=== PATIENT | male | born 1940 | race Caucasian/White ===

== ENCOUNTER 2023-05-31 23:34 | Inpatient (IN) ==
--- NOTE | 2023-05-31 23:43 | Emergency Department Note ---
Impression & Plan Acute cholecystitis, Abdominal pain ED Provider Note NAME: CHE CHEUNG AGE: 82 SEX: M : 1940 ARRIVES VIA: Walk-In INFORMANT: Patient, ED PROVIDER(S): Mann Siegel MD CHIEF COMPLAINT: MEDICAL DECISION MAKING: Patient presents due to concern for epigastric burning. IV was established blood was obtained the patient did have a screening EKG troponin ordered along with a KUB. Patient was ordered Pepcid and Carafate. Patient's KUB did show concern for possible gaseous distention of the bowel which seem to be enlarged and so CT abdomen pelvis was ordered. Repeat troponin ordered. The patient's blood work shows a normal white count hemoglobin and platelet count with normal kidney function electrolytes. Repeat troponin negative. Patient CT shows possible ileus. After further discussion did suggest the patient stay inpatient. I did review a KUB report from radiology which noted that the CT that was read by the overnight stat radiology group may have not noted that the patient may have acute cholecystitis. Right upper quadrant ultrasound was ordered and the patient was admitted by Dr. Carmona. Patient's right upper quadrant ultrasound was pending at the time of admission Discussion w/ other healthcare providers: Dr. Carmona inpatient medicine service Prior /Outside records reviewed: I reviewed a primary care visit from Dr. Salazar. The patient was seen for well adult exam at that time. The patient was ordered a flu vaccination and was noted to have an elevated total bilirubin that was elevated. I did review an MRI brain with and without contrast completed on May 18. This was negative and no acute intracranial abnormality or specific suspicious lesion noted. Also had a negative MRA of the head and neck. This was from May 14. Total bilirubin from April 16 was 1.4. Differential diagnosis: Gastritis, GERD, pancreatitis, atypical chest pain, constipation, bowel obstruction among others were considered Diagnostics, as interpreted by me: ECG: None Cardiac monitoring: An order was placed for continuous cardiac monitoring. The monitor shows a rate of 85 with sinus rhythm. Patient was placed on pulse oximetry Medical decision rules: None Imaging studies: I informally interpreted the patient's CT abdomen/pelvis which does not show obvious bowel obstruction with formal report to follow. HPI: Patient presents due to concern for epigastric burning that began several hours ago. The patient did try to take Pepto-Bismol but without improvement in symptoms. Patient denies any exertional symptoms and has no associated nausea vomiting or diaphoresis. Patient states that the discomfort has been constant describes it as a burning. Patient [place] any cough or fever no upper respiratory symptoms. The patient does have a right upper extremity tremor for which he was recently seen in outpatient setting at [place] and apparently had a CT head and MRI. Patient was told that some thing that he may have received may have his constipation and after further discussion with the family at bedside they think this may have been the contrast. Patient states that his last bowel movement was about a day or 2 ago. PAST MEDICAL HISTORY: See Below PAST SURGICAL HISTORY: See Below SOCIAL HISTORY: See Below HOME MEDICATIONS: See Below ALLERGIES: See Below VITALS: See Below PHYSICAL EXAMINATION: GENERAL: NAD, non-toxic. EYE EXAM: Normal conjunctiva. PERRL, no anisocoria and EOM's grossly intact w/o pain. OROPHARYNX: Moist mucus membranes, grossly normal dentition. NECK: Supple, no nuchal rigidity, no adenopathy, non-tender. No signs of meningismus. FROM of the neck with good chin to chest and neck extension. No stridor. LUNGS: Clear to auscultation. Normal chest wall mechanics. HEART: NSR, no MRG. ABDOMEN: Abdomen soft, epigastric pain, no masses, no rebound or guarding. BACK: No CVA TTP. SKIN: No rashes and no bruising. UPPER EXTREMITIES: Upper extremities are grossly normal. LOWER EXTREMITIES: Grossly normal, no edema. NEURO EXAM: A&O x3, cranial nerves II-XII grossly intact, normal speech, moves all 4 extremities. Past Med/Surg History Medical History (Updated 06/05/23 @ 08:35 by Mann Siegel MD) Benign prostatic hyperplasia with urinary obstruction Bladder calculus Gross hematuria Nephrolithiasis Urinary retention PMR (polymyalgia rheumatica) Urinary retention Nephrolithiasis Gross hematuria BPH (benign prostatic hyperplasia) Surgical History Hx of left cataract extraction Family History Father No pertinent family history Social History Smoking Status: Never smoker Second Hand Exposure: No; Do You Dip or Chew Tobacco: No; Tobacco Cessation Education Requested by Patient: No Hx Alcohol Use: No Hx Substance Use: No Preferred Language: Macedonian Communication Ability: Effective Communication Ability Comment: [place] Visual Impairment: No Limitations [employer] Required: No Beliefs That Will Affect Care: None marital status: Current Living Situation: Alone Other Information That Helps Us Care for You: No Feels Safe at Home: Yes Assistive Devices: Cane Assistive Devices Comment: reading Allergies Allergies Allergy/AdvReac Type Severity Reaction Status Date / Time No Known Allergies Allergy Verified 06/01/23 00:04 Home Meds Home Medications Medication Instructions Recorded Confirmed finasteride 5 mg tablet 5 mg PO QAM 01/01/23 06/01/23 tamsulosin 0.4 mg capsule 0.4 mg PO QAM 01/01/23 06/01/23 aspirin 81 mg tablet,delayed 81 mg PO DAILY 06/01/23 06/01/23 release rosuvastatin 10 mg tablet 10 mg PO QAM 06/01/23 06/01/23 Previous Rx's Medication Instructions Recorded acetaminophen 500 mg tablet 500 mg PO Q6H PRN pain #30 tabs 06/04/23 (Acetaminophen Extra Strength) amoxicillin 875 mg-potassium 1 tab PO Q12H #10 tabs 06/04/23 clavulanate 125 mg tablet Results & Data (ED) Vital Signs Vital Signs - 24 hr 05/31/23 23:35 05/31/23 23:55 06/01/23 03:48 Temperature 36.5 C Temperature Source Temporal Artery Scan Pulse Rate 59 L Pulse Rate [Finger] 60 Pulse Rhythm [Finger] Regular Pulse Strength [Finger] Normal Respiratory Rate 16 18 Respiratory Effort / Characteristics Non-Labored Spontaneous Non-Labored Spontaneous Respiratory Depth Normal Normal Respiratory Pattern Regular Blood Pressure 184/86 H Blood Pressure [Left Arm] 171/77 H Blood Pressure Mean 118 Blood Pressure Mean [Left Arm] 108 Blood Pressure Position Sitting Blood Pressure Position [Left Arm] Lying Pulse Oximetry 94 96 97 Oxygen Delivery Method Room Air Room Air Sepsis Recent Fever Within 48 Hours No Sepsis New/Unexplained Change in Mental Status N/A Sepsis Action Taken by Nursing No Action Required Home Medications Current Medication List: was personally reviewed by me Laboratory Data Attestation: I reviewed the patient's lab results. 06/05/23 05:45 06/05/23 05:45 Lab Results 06/01/23 06/01/23 Range/Units 00:30 02:40 WBC 6.06 (4.8-10.8) K/ul RBC 4.45 L (4.70-6.10) M/uL Hgb 14.5 (14.0-18.0) g/dl Hct 41.9 L (42.0-52.0) % MCV 94.2 (80.0-100.0) fL MCH 32.6 (25.0-34.0) pg MCHC 34.6 (32.0-36.0) g/dL RDW Std Deviation 42.4 (36.4-46.3) fL RDW Coeff of Titi 12.2 (11.5-14.5) % Plt Count 196 (130-400) K/uL MPV 10.4 (9.4-12.4) fL Immature Gran % (Auto) 0.2 % Neut % (Auto) 65.2 % Lymph % (Auto) 25.2 % [place] % (Auto) 7.9 % Eos % (Auto) 1.3 % Baso % (Auto) 0.2 % Neut # (Auto) 3.95 (1.40-6.50) K/uL Lymph # (Auto) 1.53 (1.20-3.40) K/uL Aurora # (Auto) 0.48 (0.11-0.59) K/uL Eos # (Auto) 0.08 (0.00-0.50) K/uL Baso # (Auto) 0.01 (0.00-0.20) K/uL Immature Gran # (Auto) 0.01 (0.01-0.20) K/uL Sodium 140 (136-145) mmol/L Potassium 4.1 (3.5-5.1) mmol/L Chloride 105 (98-107) mmol/L Carbon Dioxide 29 (21-32) mmol/L Anion Gap 6 (3-11) BUN 17 (6-23) mg/dl Creatinine 0.91 (0.6-1.4) mg/dl Est Cr Clr Drug Dosing 58.5 ml/min Est GFR ( Amer) 90.6 ml/min Est GFR (Non-Af Amer) 78.2 ml/min BUN/Creatinine Ratio 18.7 (10-20) Glucose 127 H (70-99(Fasting)) mg/dl Calcium 9.2 (8.6-10.3) mg/dl Total Bilirubin 1.2 H (0.2-1.0) mg/dl AST 19 (13-39) U/L ALT 18 (7-52) U/L Alkaline Phosphatase 60 (34-104) U/L Troponin I High Sens 5.8 5.5 (0-20) pg/ml Total Protein 6.6 (6.0-8.3) gm/dl Albumin 4.2 (3.4-5.0) gm/dl Globulin 2.4 L (2.5-4.0) gm/dl Albumin/Globulin Ratio 1.8 (0.9-2) Lipase 11 (11-82) U/L Administered Medications Amoxicillin/Clavulanate Potassium (Amoxicillin/Clavulanate 875 Mg Tab) 1 tab PO BIDM [facility]; Protocol Stop: 06/14/23 16:59 Last Admin: 06/05/23 08:15 Dose: 1 tab Documented By: Admin: 06/04/23 18:32 Dose: 1 tab Documented By: JAKE Finasteride (Finasteride 5 Mg Tab) [facility] [place] Stop: 07/03/23 08:59 Last Admin: 06/05/23 08:15 Dose: 5 mg Documented By: Admin: 06/04/23 08:13 Dose: 5 mg Documented By: Admin: 06/03/23 07:50 Dose: 5 mg Documented By: CHRISTIAN Morphine Sulfate (Morphine Sulfate 2 Mg/Ml Carp) 2 mg IV Q6H PRN PRN Reason: moderate to severe Pain Stop: 06/15/23 08:46 Last Admin: 06/01/23 08:55 Dose: 2 mg Documented By: KATARINA Ondansetron HCl (Ondansetron Inj 2 Mg/Ml 2 Ml Vial) 4 mg IV Q6H PRN PRN Reason: Nausea Stop: 07/01/23 08:46 Last Admin: 06/01/23 10:28 Dose: 4 mg Documented By: TAWANDA Oxycodone/Acetaminophen (Oxycodone/Acetaminophen 5mg/325mg Tab) 1 tab PO Q4H PRN PRN Reason: MODERATE Pain (4,5,6) & Pre PT Stop: 06/15/23 17:45 Last Admin: 06/04/23 02:21 Dose: 1 tab Documented By: ASHWIN Rosuvastatin Calcium (Rosuvastatin Calcium 10 Mg Tab) 10 mg PO [facility] Stop: 07/03/23 08:59 Last Admin: 06/05/23 08:15 Dose: 10 mg Documented By: Admin: 06/04/23 08:13 Dose: 10 mg Documented By: Admin: 06/03/23 07:50 Dose: 10 mg Documented By: CMV Tamsulosin HCl (Tamsulosin Hcl 0.4 Mg Cap) 0.4 mg PO [facility] Stop: 07/03/23 08:59 Last Admin: 06/05/23 08:15 Dose: 0.4 mg Documented By: Admin: 06/04/23 08:13 Dose: 0.4 mg Documented By: Admin: 06/03/23 07:50 Dose: 0.4 mg Documented By: CHRISTIAN Discontinued Medications Al Hydrox/Mg Hydrox/Simethicone (Aluminum/Magnesium Susp 30 Ml Udc) 30 ml PO NOW STA Stop: 06/01/23 02:07 Last Admin: 06/01/23 02:28 Dose: 30 ml Documented By: PK Bisacodyl (Bisacodyl 5 Mg Tabec) 5 mg PO NOW ONE Stop: 06/04/23 12:09 Last Admin: 06/04/23 12:13 Dose: 5 mg Documented By: JAKE Bupivacaine HCl/Epinephrine Bitart (Bupivacaine/Epinephrine 0.25% 1:200,000 30 Ml Vial) Confirm Administered Dose 30 ml .ROUTE .STK-MED ONE Stop: 06/01/23 13:53 Last Admin: 06/01/23 16:09 Dose: 15 ml Documented By: EUSEBIO Sodium Chloride (Nss) 500 mls @ 999 mls/hr IV .Q31M STA Stop: 06/01/23 00:25 Last Infusion: 06/01/23 01:15 Dose: Infused Documented By: Admin: 06/01/23 00:37 Dose: 999 mls/hr Documented By: PK Famotidine (Pepcid 20mg Iv Push) 20 mg in 5 mls @ 2.5 mls/min IV NOW STA Stop: 05/31/23 23:56 Last Admin: 06/01/23 00:35 Dose: 2.5 mls/min Documented By: PK Pantoprazole Sodium 40 mg/ (Syringe) 10 mls @ 5 mls/min IV NOW ONE Stop: 06/01/23 02:07 Last Admin: 06/01/23 02:29 Dose: 5 mls/min Documented By: PK Acetaminophen (Ofirmev) 1,000 mg in 100 mls @ 400 mls/hr IV NOW STA Stop: 06/01/23 05:46 Last Infusion: 06/01/23 06:00 Dose: Infused Documented By: Admin: 06/01/23 05:38 Dose: 400 mls/hr Documented By: OZIELW Sodium Chloride (Nss) 1,000 mls @ 999 mls/hr IV .Q1H1M ONE Stop: 06/01/23 08:12 Last Infusion: 06/01/23 11:54 Dose: Infused Documented By: Admin: 06/01/23 07:29 Dose: 999 mls/hr Documented By: LOPEZB Acetaminophen (Ofirmev) 1,000 mg in 100 mls @ 400 mls/hr IV Q8H PRN PRN Reason: Mild-Mod Pain (Scale 1-6) Stop: 06/04/23 08:46 Last Infusion: 06/02/23 22:21 Dose: Infused Documented By: Admin: 06/02/23 22:06 Dose: 400 mls/hr Documented By: Infusion: 06/01/23 18:28 Dose: Infused Documented By: Infusion: 06/01/23 10:48 Dose: 0 mls/hr Documented By: Infusion: 06/01/23 10:31 Dose: 0 mls/hr Documented By: Admin: 06/01/23 10:31 Dose: 400 mls/hr Documented By: AMS Sodium Chloride (Nss) 1,000 mls @ 70 mls/hr IV .[id number] WONG Stop: 06/02/23 13:21 Last Infusion: 06/02/23 11:36 Dose: Infused Documented By: Admin: 06/01/23 21:03 Dose: 70 mls/hr Documented By: Infusion: 06/01/23 18:30 Dose: Infused Documented By: Admin: 06/01/23 10:07 Dose: 70 mls/hr Documented By: SLB Lactated Ringer's (Lr) 1,000 mls @ 15 mls/hr IV .Q24H WONG Stop: 07/01/23 13:44 Last Infusion: 06/01/23 14:23 Dose: Infused Documented By: Admin: 06/01/23 14:21 Dose: 15 mls/hr Documented By: HBM Cefazolin Sodium (Ancef 2000mg) 2,000 mg in 15 mls @ 3.75 mls/min IV PREOP ONE; Protocol Stop: 06/01/23 14:08 Last Admin: 06/01/23 14:23 Dose: 3.75 mls/min Documented By: [id number] Piperacillin Sod/Tazobactam (Sod 4.5 gm/ Dextrose) 100 mls @ 25 mls/hr IV Q8H WONG; Protocol Stop: 06/06/23 14:59 Last Admin: 06/04/23 16:11 Dose: Not Given Documented By: Infusion: 06/04/23 10:06 Dose: Infused Documented By: Admin: 06/04/23 06:01 Dose: 25 mls/hr Documented By: Infusion: 06/04/23 02:21 Dose: Infused Documented By: Admin: 06/03/23 22:16 Dose: 25 mls/hr Documented By: Infusion: 06/03/23 20:32 Dose: Infused Documented By: Admin: 06/03/23 16:30 Dose: 25 mls/hr Documented By: Infusion: 06/03/23 10:34 Dose: Infused Documented By: DM(2) Admin: 06/03/23 06:19 Dose: 25 mls/hr Documented By: Infusion: 06/03/23 02:16 Dose: Infused Documented By: Admin: 06/02/23 22:16 Dose: 25 mls/hr Documented By: Infusion: 06/02/23 19:54 Dose: Infused Documented By: Admin: 06/02/23 15:32 Dose: 25 mls/hr Documented By: TRB Piperacillin Sod/Tazobactam (Sod 4.5 gm/ Dextrose) 100 mls @ 200 mls/hr IV NOW ONE; Protocol Stop: 06/02/23 10:44 Last Infusion: 06/02/23 11:36 Dose: Infused Documented By: Admin: 06/02/23 10:48 Dose: 200 mls/hr Documented By: MELISSA Ioversol (Optiray 320 500ml) 90 ml IV ONCE ONE Stop: 06/01/23 01:51 Last Admin: 06/01/23 01:50 Dose: 90 ml Documented By: JUDD Miscellaneous ( Floseal Hemostatic Matrix 10ml) 10 ml TOP ONCE ONE Stop: 06/01/23 15:37 Last Admin: 06/01/23 15:58 Dose: 10 ml Documented By: SHELBY Miscellaneous (Surgicel Absorb Hemostat 2in X 14in) 1 each TOP ONCE ONE Stop: 06/01/23 15:37 Last Admin: 06/01/23 15:38 Dose: 1 each Documented By: SHELBY(2) Morphine Sulfate (Morphine Sulfate 2 Mg/Ml Carp) 2 mg IV NOW STA Stop: 06/01/23 05:32 Last Admin: 06/01/23 05:38 Dose: 2 mg Documented By: PK Morphine Sulfate (Morphine Sulfate 2 Mg/Ml Carp) Confirm Administered Dose 2 mg .ROUTE .STK-MED ONE Stop: 06/01/23 08:44 Last Admin: 06/01/23 08:55 Dose: Not Given Documented By: KATARINA Ondansetron HCl (Ondansetron Inj 2 Mg/Ml 2 Ml Vial) 4 mg IV NOW STA Stop: 06/01/23 02:07 Last Admin: 06/01/23 02:30 Dose: 4 mg Documented By: PK Polyethylene Glycol (Polyethylene (Miralax) 17 Gm Pack) 17 gm PO ONE ONE Stop: 06/04/23 18:46 Last Admin: 06/04/23 18:45 Dose: 17 gm Documented By: JAKE Sucralfate (Sucralfate 1 Gm/10 Ml Udc) 1 gm PO NOW STA Stop: 05/31/23 23:56 Last Admin: 06/01/23 00:35 Dose: 1 gm Documented By: PK Imaging Data Radiologist's Impression: KUB X-Ray 05/31/23 23:56 KUB HISTORY: burning epigastric pain COMPARISON: Abdomen and pelvis CT 06/01/2023. FINDINGS: The bowel gas pattern is unremarkable. There are no dilated loops of small bowel to suggest an obstruction. The patient's known left renal stone is not well visualized due to the overlying bowel gas. No pneumoperitoneum or pneumatosis. Moderate well-formed stool within the proximal colon. Mild interstitial thickening at the lungs. The heart is enlarged. It should be noted that the gallbladder appears distended and demonstrates trace pericholecystic fluid/inflammatory change on the same day abdomen and pelvis CT. This raises the possibility of an early acute cholecystitis. Clinical correlation recommended. IMPRESSION: 1. Nonobstructive bowel gas pattern. 2. It should be noted that the gallbladder appears distended and demonstrates trace pericholecystic fluid/inflammatory change on the same day abdomen and pelvis CT. This raises the possibility of an early acute cholecystitis. Clinical correlation recommended. 3. This report was called/faxed to the emergency department following dictation. ACT 112: Negative or not required by law. Electronically signed by: Madi Salamanca M.D. 06/01/2023 7:00 AM Abdomen/Pelvis CT 06/01/23 00:28 Exam(s): CT ABDOMEN + PELVIS With Contrast IV Amt: 90 ml opti 320 EXAM: CT Abdomen and Pelvis With Intravenous Contrast CLINICAL HISTORY: Reason for exam: abdominal pain. TECHNIQUE: Axial computed tomography images of the abdomen and pelvis with intravenous contrast. CTDI is 15.61 mGy and DLP is 761.53 mGy-cm. Automated exposure control was utilized for the study. A dose lowering technique was utilized adhering to the principles of ALARA. CONTRAST: Patient received 90 ml opti 320 of IV contrast COMPARISON: 01/21/18 FINDINGS: Lung bases: Discoid atelectasis seen in the lung bases. ABDOMEN: Liver: Unremarkable. No mass. Gallbladder and bile ducts: Unremarkable. No calcified stones. No ductal dilation. Pancreas: There is fatty infiltration of the pancreas. No ductal dilation. Spleen: Unremarkable. No splenomegaly. Adrenals: Unremarkable. No mass. Kidneys and ureters: There is 8 mm diameter calculus seen in the left kidney. 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 No hydronephrosis. Stomach and bowel: Left inguinal hernia containing a loop of nondilated sigmoid colon. Generous amount of air seen in the right and transverse colon. The tip of the cecum is in the midline. No mucosal thickening. PELVIS: Appendix: Appendix is not visualized. No findings to suggest acute appendicitis. Bladder: Unremarkable. No mass. Reproductive: Moderate prostatomegaly. ABDOMEN and PELVIS: Intraperitoneal space: Unremarkable. No free air. No significant fluid collection. Bones/joints: No acute fracture. No dislocation. Soft tissues: See above. Vasculature: Unremarkable. No abdominal aortic aneurysm. Lymph nodes: Unremarkable. No enlarged lymph nodes. IMPRESSION: 1. Generous amount of air in the right and transverse colon which could be from ileus. 2. Horseshoe kidney and left nephrolithiasis. No hydronephrosis Electronically signed by: Andrey Lindo MD 06/01/23 06:09 AM Discharge Plan Visit Data Chief Complaint: Abdominal Pain Stated Complaint: ABDOMINAL PAIN ED Provider: Mann Siegel Discharge Problem: Acute cholecystitis, Abdominal pain Patient Disposition: Admitted As Inpatient Discharge Instructions Interventions: ED Discharge Assessment Last Done: 06/01/23 08:39 Discharge Problem: Abdominal pain Qualifiers: Abdominal location: epigastric Qualified Code(s): R10.13 - Epigastric pain
[2023-05-31] MEDS ORDERED: SODIUM CHLORIDE 0.9% 500 ML IV STA (23:55)
[2023-05-31] MEDS ORDERED: FAMOTIDINE 20MG IV PUSH 20 MG/5 ML SYR IV STA (23:55)
[2023-05-31] MEDS ORDERED: SUCRALFATE 1 GM/10 ML UDC PO STA (23:55)
[2023-06-01 01:02] LABS: Albumin Globulin Ratio 1.8 (0.9-2); Albumin Level 4.2 gm/dl (3.4-5.0); BUN Creatinine Ratio 18.7 (10-20); Bilirubin,Total 1.2 mg/dl (0.2-1.0); Calcium 9.2 mg/dl (8.6-10.3); Creatinine Clr Calc Pharmacy 58.5 ml/min; Est GFR (African American) 90.6 ml/min; Est GFR (Non-African American) 78.2 ml/min; Globulin 2.4 gm/dl (2.5-4.0); Potassium 4.1 mmol/L (3.5-5.1); Total Protein 6.6 gm/dl (6.0-8.3)
[2023-06-01 01:09] LABS: Troponin I High Sensitivity 5.8 pg/ml (0-20)
[2023-06-01 01:29] LABS: Basophils # (auto) 0.01 K/uL (0.00-0.20); Basophils % (auto) 0.2 %; Eosinophils # (auto) 0.08 K/uL (0.00-0.50); Eosinophils % (auto) 1.3 %; Hematocrit (blood only) 41.9 % (42.0-52.0); Hemoglobin 14.5 g/dl (14.0-18.0); Immature Granulocytes # (auto) 0.01 K/uL (0.01-0.20); Immature Granulocytes % (auto) 0.2 %; Lymphocytes # (auto) 1.53 K/uL (1.20-3.40); Lymphocytes % (auto) 25.2 %; Mean Corpuscular Hemoglobin 32.6 pg (25.0-34.0); Mean Corpuscular Hgb Conc 34.6 g/dL (32.0-36.0); Mean Corpuscular Volume 94.2 fL (80.0-100.0); Mean Platelet Volume 10.4 fL (9.4-12.4); Monocytes # (auto) 0.48 K/uL (0.11-0.59); Monocytes % (auto) 7.9 %; Neutrophils # (auto) 3.95 K/uL (1.40-6.50); Neutrophils % (auto) 65.2 %; Platelet Count 196 K/uL (130-400); RDW Coefficient of Variation 12.2 % (11.5-14.5); RDW Standard Deviation 42.4 fL (36.4-46.3); Red Blood Count 4.45 M/uL (4.70-6.10); White Blood Count 6.06 K/ul (4.8-10.8)
[2023-06-01] MEDS ORDERED: OPTIRAY 320 500ml IV ONE (01:50)
[2023-06-01] MEDS ORDERED: PANTOprazole 40 MG in SYRINGE 0 ML IV ONE (02:06)
[2023-06-01] MEDS ORDERED: ALUMINUM/MAGNESIUM SUSP 30 ML UDC PO STA (02:06)
[2023-06-01] MEDS ORDERED: ONDANSETRON INJ 2 MG/ML 2 ML VIAL IV STA (02:06)
--- OUTSIDE RECORDS SUMMARY | 2023-06-01 05:25 | External Medical Summary | Summary of Care ---
Author Name Unknown Organization [facility] Address [address] [place] [facility] [place] [facility] [place] [address] Phone [phone] Care Team Providers Care [employer]er Name Role Phone Liborio King DO Primary Care Provider [phone] Reason for Referral * Precert (Within 10 days (routine)) - Pending Review Specialty Diagnoses / Procedures Referred By Contac t Referred To Contact Radiology Diagnoses Fibromuscular dysplasia (HCC) Right hemiparesis (HCC) Procedures MRI BRAIN W WO CONTRAST Veronica Borges MD [address] [place] [address] Referral ID Status Reason Start Date Expiration Date V isits Requested Visits Authorized [id number] Pending Review 04/16/2023 999 999 * Precert (Within 10 days (routine)) - Pending Review Specialty Diagnoses / Procedures Referred By Contac t Referred To Contact Radiology Diagnoses Fibromuscular dysplasia (HCC) Right hemiparesis (HCC) Procedures MRA HEAD WO CONTRAST Veronica Borges MD [address] [place] [address] Referral ID Status Reason Start Date Expiration Date V isits Requested Visits Authorized [id number] Pending Review 04/16/2023 999 999 * Precert (Within 10 days (routine)) - Pending Review Specialty Diagnoses / Procedures Referred By Contac t Referred To Contact Radiology Diagnoses Fibromuscular dysplasia (HCC) Right hemiparesis (HCC) Procedures MRA NECK W WO CONTRAST Veronica Borges MD [address] [place] [address] Referral ID Status Reason Start Date Expiration Date V isits Requested Visits Authorized [id number] Pending Review 04/16/2023 999 999 Reason for Visit * Reason Comments NEW PATIENT Tremors * Evaluate & Treat - Unlimited Visits (Within 10 days (routine)) - Authorized Specialty Diagnoses / Procedures Referred By Contnelia t Referred To Contact Neurology Diagnoses Tremor of right hand Liborio King, DO [address] [place] [address] Referral ID Status Reason Start Date Expiration Date Visits Requested Visits Authorized [id number] Authorized Specialty Services Required 11/24/[phone] Encounter Details Date Type Department Care Team (Late st Contact Info) Description 04/16/2023 10:40 AM EDT Office Visit Neurology [facility] [address] [facility] [place] [address] Veronica Borges MD [address] [place] [address] Fibromuscular dysplasia (HCC)*; Right hemiparesis (HCC) Allergies No known active allergiesdocumented as of this encounter (statuses as of 05/21/2023) Medications Medication Sig Dispensed Refills Start Date End Date Status zoster vac recomb adjuvanted (SHINGRIX) 50 MCG/0.5ML injectionIndication s:Need for vaccination for zoster Inject 0.5 mL into a large muscle now and repeat dose in 60 to 180 days 1 Each 1 08/26/2019 Active Additional Information Patient not taking.Reported on 11/24/2022 Finasteride 5 MG Oral Tablet (Proscar)Indication s:BPH with obstruction/lower urinary tract symptoms Take by mouth 1 Tablet in the morning. 90 Tablet 3 04/24/2022 Active Tamsulosin HCl 0.4 MG Oral Capsule (Flomax)Indications :BPH with obstruction/lower urinary tract symptoms Take by mouth 1 Capsule in the morning. 90 Capsule 3 04/24/2022 Active Rosuvastatin Calcium 10 MG Oral Tablet (Crestor)Indication s:Carotid atherosclerosis, bilateral,Dyslipide charlee, goal LDL below 70 Take 1 Tablet by mouth in the morning. 90 Tablet 3 01/08/2023 Active Aspirin 81 MG Oral Tablet ChewableIndications :Carotid atherosclerosis, bilateral Take 1 Tablet by mouth in the morning. with food.. 100 Tablet 2 01/08/2023 Active documented as of this encounter (statuses as of 05/21/2023) Active Problems Problem Noted Date Diagnosed Date Fibromuscular dysplasia 04/18/2023 Episodic tension-type headache, not intractable 01/08/2023 Carotid atherosclerosis, bilateral 01/08/2023 Dyslipidemia, goal LDL below 70 01/08/2023 Bilateral hearing loss 01/08/2023 Right hydrocele 01/08/2023 Age-related cataract of right eye 04/24/2022 Pterygium of left eye 04/24/2022 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 Tremor 04/24/2022 documented as of this encounter (statuses as of 05/21/2023) Immunizations Name Administration Dates Next Due Pneumococcal Conjugate Vacc, 13 Valent (Prevnar) 01/21/2018 Pneumococcal Conjugate Vaccine, 20-valent (Prevn ar20) 04/24/2022 SEASONAL INFLUENZA, PF, 6 M & Above, IM , (FLULAVAL or FLUZONE) 04/23/2018 Seasonal Influenza, Quadrivalent Hd (Fluzone Hd) 04/18/2023,04/24/2022 TDAP (age 10 and older)(Boostrix) 11/24/2022 documented as of this encounter Social History Tobacco Use Types Packs/Day Years Used Date Smoking Tobacco: Never Passive Smoke Exposure: Never Smokeless Tobacco: Never Tobacco Cessation:Counseling Given: Not Answered Comments:No passive smoke exposure Alcohol Use Standard Drinks/Week Comments No 0 (1 standard drink = 0.6 oz pur e alcohol) PHQ-2 Answer Date Recorded PHQ Adult Total Score 0 04/24/2022 Hunger Vital Sign Answer Date Recorded Within the past 12 months, y ou worried that your food would run out before you got the money to buy more. Never true 04/24/20 22 Within the past 12 months, t he food you bought just didn't last and you didn't have money to get more. Never true 04/24/2022 Sex and Gender Information Value Date Recorded Sex Assigned at Not on file Gender Identity Not on file Sexual Orientation Not on file Job Start Date Occupation Industry Not on file Not on file Not on file documented as of this encounter Last Filed Vital Signs Vital Sign Reading Time Taken Comments Blood Pressure 126/58 04/16/2023 10:25 AM EDT Pulse 69 04/16/2023 10:25 AM EDT Temperature 36.7 C (98 F) 04/16/2023 10: 25 AM EDT Respiratory Rate 20 04/16/2023 10:2 5 AM EDT Oxygen Saturation 94% 04/16/2023 10: 25 AM EDT Inhaled Oxygen Concentration - - Weight 73.4 kg (161 lb 12.8 oz) 023 10:25 AM EDT Height 163.8 cm (5' 4.5") 04/16/2023 10 :25 AM EDT Body Mass Index 27.34 04/16/2023 10:25 AM EDT documented in this encounter Progress Notes * Veronica Borges MD - 04/16/2023 11:22 AM EDT CLINIC NOTES Neurology [facility] [place] [address] [facility] [address] Lance Neves : 1940 NEUROLOGY OUTPATIENT NOTE 04/16/2023 HISTORY: The patient is referred for consultation by Dr. King, who will be receiving a copy of this note. Reason for consultation tremor. The patient is an 82-year-old male who has noted a several year history of a right resting tremor. He notes some decreased dexterity in his right hand. Does not noticeany change in gait and has not had any falls. He is no dream enacting. He is no difficulty rolling in bed or getting out of a chair no orthostatic lightheadedness. His voice may be somewhat more hoarse than once had been his swallowing is intact. No family history of tremor. No personal history of stroke. In December went to the ER for nonspecifically feeling unwell a CT and CTA showed possible fibromuscular dysplasia again the patient denies any history of TIA sudden visual loss dysarthria unilateral weakness or numbness. After the CTA the patient was placed on aspirin and a statin. [place] Son lives nearby. He is very physically active Past Medical History: Diagnosis Date Cataract Urinary retention 12/2017 Patient Active Problem List Diagnosis Code Age-related cataract of right eye H25.9 Pterygium of left eye H11.002 BPH with obstruction/lower urinary tract symptoms N40.1, N13.8 Tremor R25.1 Episodic tension-type headache, not intractable G44.219 Carotid atherosclerosis, bilateral I65.23 Dyslipidemia, goal LDL below 70 E78.5 Bilateral hearing loss H91.93 Right hydrocele N43.3 Past Surgical History: Procedure Laterality Date NONE Bilateral cataracts. It is possible that he has had prostatectomy Social History Socioeconomic History Marital status: Spouse name: Not on file Number of children: Not on file Years of education: Not on file Highest education level: Not on file Occupational History Not on file Tobacco Use Smoking status: Never Passive exposure: Never Smokeless tobacco: Never Tobacco comments: No passive smoke exposure Vaping Use Vaping Use: Never used Substance and Sexual Activity Alcohol use: No Drug use: No Sexual activity: Not on file Other Topics Concern Not on file Social History Narrative Not on file Social Determinants of Health Financial Resource Strain: Not on file Food Insecurity: No Food Insecurity (04/24/2022) Hunger Vital Sign Worried About Running Out of Food in the Last Year: Never true Ran Out of Food in the Last Year: Never true Transportation Needs: Not on file Physical Activity: Not on file Stress: Not on file Social Connections: Not on file Intimate Partner Violence: Not on file Housing Stability: Not on file No family history on file. Current Outpatient Medications Medication Sig Dispense Refill zoster vac recomb adjuvanted (SHINGRIX) 50 MCG/0.5ML injection Inject 0.5 mL into a large muscle now and repeat dose in 60 to 180 days (Patient not taking: Reported on 11/24/2022) 1 Each 1 Finasteride 5 MG Oral Tablet (Proscar) Take by mouth 1 Tablet in the morning. 90 Tablet 3 Tamsulosin HCl 0.4 MG Oral Capsule (Flomax) Take by mouth 1 Capsule in the morning. 90 Capsule 3 Rosuvastatin Calcium 10 MG Oral Tablet (Crestor) Take 1 Tablet by mouth in the morning. 90 Tablet 3 Aspirin 81 MG Oral Tablet Chewable Take 1 Tablet by mouth in the morning. with food.. 100 Tablet 2 No current facility-administered medications for this visit. Review of patient's allergies indicates: No Known Allergies Results for orders placed or performed in visit on 11/24/22 CBC Result Value Ref Range WBC 4.59 4.00 - 10.80 K/uL RBC 4.69 4.50 - 5.25 M/uL HGB 15.1 14.0 - 16.8 g/dL HCT 44.1 40.0 - 48.4 % MCV 94.0 82.0 - 99.5 fL MCH 32.2 27.0 - 34.0 pg MCHC 34.2 32.0 - 36.0 g/dL RDW 12.2 11.5 - 15.5 % PLT 216 140 - 400 K/uL MPV 9.7 6.6 - 11.1 fL Results for orders placed or performed in visit on 01/21/18 BASIC METAB PANEL, BMP Result Value Ref Range BUN 19 6 - 20 mg/dL Creatinine 1.0 0.6 - 1.2 mg/dL Estimated Glomerular Filtration Rate >60.0 >60 Sodium 138 135 - 146 mmol/L Potassium 4.3 3.5 - 5.1 mmol/L Chloride 101 98 - 107 mmol/L CO2 26 22 - 32 mmol/L Anion Gap 11 7 - 15 mmol/L Glucose 104 70 - 120 mg/dL Calcium 9.3 8.4 - 10.2 mg/dL Results for orders placed or performed in visit on 10/14/18 LIPID PANEL Result Value Ref Range HOURS FASTING >8 HOURS hours Triglycerides 87 <200 mg/dL Cholesterol 165 <200 mg/dL HDL Cholesterol 47 >39 mg/dL Cholesterol-HDL Ratio 3.5 LDL Cholesterol 101 0 - 129 mg/dL No results found for: "HEMOGLOBIN A1C" Lab Results Component Value Date/Time TSH - [facility] 1.28 11/24/2022 10:07 AM TSH - OUTSIDE LAB 1.554 01/01/2023 12:00 AM No results found for: "CLAUDE" No results found for: "KXVT48NCV9" No results found for: "NGWF35MDE9" No results found for: "HILFGGXU92XR" No results found for: "25OHVITAMIND" Vitamin D Level Interpretation deficient: <20 ng/ml insufficient: 20-30 ng/ml normal: 31-100 ng/ml REVIEW OF SYSTEMS: Notable for poor appetite trouble sleeping cataracts loss of hearing dry mouth hoarseness cough urinary dribbling heartburn and constipation PHYSICAL EXAM: BP 126/58 (BP Site: Right Arm, BP Position: Sitting, BP Cuff Size: Regular) | Pulse 69 | Temp 36.7 C (98 F) (Tympanic) | Resp 20 | Ht 1.638 m (5' 4.5") | Wt 73.4 kg (161 lb 12.8 oz) | SpO2 94% | BMI 27.34 kg/m | BSA 1.83 m Well-developed male in no distress. Speech is hypophonic. There is decreased blink frequency. Theremay be a minor jaw tremor no head tremor no voice tremor. Pupils are postsurgical optic nerves grossly normal normal zee motility there is a flattening of the right nasolabial fold tongue is midline there is a very prominent right hand resting tremor with mild cogwheel rigidity. There may be some minor right upper extremity weakness and a right drift and decreased right rapid alternating movements. Lower extremity strength is symmetric reflexes symmetric query right toe upgoing left toe downgoing there is only a fine tremor with posture and with intention. [id number] is normal. Vibrationsense is present in the fingers and toes gait is with decreased arm swing on the right with a prominent resting tremor and some minor postural instability he does not tolerate a postural challenge well IMPRESSION: The patient radiographically a said to have fibromuscular dysplasia. On exam he has evidence of left hemisphere dysfunction. I would like him to have an MRI and MRA of the head and neck to see if this confirms fibromuscular dysplasia. 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 His gait is adequate and does not require any medication. I would be concerned that he would have adverse effect from the medications that are typically used for more of a resting tremor. These include Artane Cogentin and amantadine. Side effects include urinary retention dry mouth constipation and confusion he will give that some thought I will see him back in 2 months after imaging. Veronica Borges MD 04/16/2023 11:23 AM documented in this encounter Nursing Notes * Gay Cross LPN - 04/16/2023 10:24 AM EDT Patient verified identity by spelling of last name and date. New patient referral from Dr King for tremor right arm documented in this encounter Plan of Treatment Upcoming Encounters Date Type Department Care Team (Late st Contact Info) Description 06/07/2023 9:00 AM EST Office Visit Family [facility] [address] [place] [address] Eleni Jacobson DO [address] [place] [id number] 06/13/2023 9:20 AM EST Office Visit Neurology [facility] [address] [place] [place] [address] Montana Cook MD [address] [place] [address] Health Maintenance Due Date Last Done Comments Zoster Vaccines (1 of 2) 1990 COVID-19 Vaccine (3 - 2022-2 4 season) 2023 08/25/2020, 08/04/2020 Depression Screening 04/24/2023 04/24/2022 DTaP,Tdap,and Td Vaccines (2 - Td or Tdap) 11/24/2032 11/24/2022 Pneumococcal Vaccine: 65+ Years Completed 04/24/2022, 01/21/2018 Influenza Vaccine (FLU shot) Completed , 04/24/2022, 04/23/2018 GARDASIL-HPV IMMUNIZATION SERIES Aged Out No longer eligible b ased on patient's age to complete this topic Hepatitis B Aged Out No longer eligi ble based on patient's age to complete this topic MENINGOCOCCAL (MENACTRA/MENVEO) Aged Out No longer eligible b ased on patient's age to complete this topic documented as of this encounter Medical Devices Not on filedocumented as of this encounter Procedures Procedure Name Priority Date/Time Associated Diagnosis Comments MRI BRAIN W WO CONTRAST Routine 05/18/2023 12:42 PM EST Fibromuscular dysplasia (HCC) Right hemiparesis (HCC) MRA HEAD WO CONTRAST Routine 05/12/2023 2:32 PM EST Fibromuscular dysplasia (HCC) Right hemiparesis (HCC) MRA NECK W WO CONTRAST Routine 05/12/2023 2:28 PM EST Fibromuscular dysplasia (HCC) Right hemiparesis (HCC) XR EYE FOREIGN BODY PRE MRI STAT 05/12/2023 12:54 PM EST Fibromuscular dysplasia (HCC) Right hemiparesis (HCC) documented in this encounter Results * MRI BRAIN W WO CONTRAST (05/18/2023 12:42 PM EST) Anatomical Region Laterality Modality Neuro, Head Magnetic Resonan ce 05/21/2023 10:0 3 AM EST Impressions 05/21/2023 10:00 AM EST IMPRESSION: No acute intracranial abnormality or suspicious lesion. Narrative 05/21/2023 10:00 AM EST EXAM: MRI BRAIN W WO CONTRAST 05/18/2023 HISTORY: r hand tremor, r facial droop right weakness, fmd seen of cta head TECHNIQUE: Multiplanar multisequence magnetic resonance imaging of the brain was obtained before and after administration of intravenous contrast. COMPARISON: MRA head and neck 05/12/2023 FINDINGS: The study is partially motion degraded. Mildly prominent extra-axial CSF signal along the bilateral frontal convexities is likely on account of cerebral volume loss, less likely subdural hygromas. There is no evidence of an acute infarct, hemorrhage, or mass lesion. Small scattered T2 hyperintense foci throughout the supratentorial white matter likely on the basis of mild chronic small vessel ischemic gliosis. No significant midline shift. The basal cisterns are patent. The flow voids of the major intracranial arteries are grossly preserved. There are no enhancing abnormalities of the brain. No evidence of an acute calvarial or orbital abnormality. There is mild mucosal thickening of the maxillary sinuses and ethmoid air cells. There is trace fluid of the left mastoid air cells. Procedure Note Aneudy Lester MD - 05/21/2023 EXAM: MRI BRAIN W WO CONTRAST 05/18/2023 HISTORY: r hand tremor, r facial droop right weakness, fmd seen of cta head TECHNIQUE: Multiplanar multisequence magnetic resonance imaging of the brain wasobtained before and after administration of intravenous contrast. COMPARISON: MRA head and neck 05/12/2023 FINDINGS: The study is partially motion degraded. Mildly prominent extra-axial CSF signal along the bilateral frontalconvexities is likely on account of cerebral volume loss, less likelysubdural hygromas. There is no evidence of an acute infarct, hemorrhage,or mass lesion. Small scattered T2 hyperintense foci throughout thesupratentorial white matter likely on the basis of mild chronic smallvessel ischemic gliosis. No significant midline shift. The basalcisterns are patent. The flow voids of the major intracranial arteriesare grossly preserved. There are no enhancing abnormalities of thebrain. No evidence of an acute calvarial or orbital abnormality. There is mildmucosal thickening of the maxillary sinuses and ethmoid air cells. Thereis trace fluid of the left mastoid air cells. IMPRESSION IMPRESSION: No acute intracranial abnormality or suspicious lesion. Veronica Borges MD RAD MRI-MRA * MRA HEAD WO CONTRAST (05/12/2023 2:32 PM EST) Anatomical Region Laterality Modality Head Magnetic Resonan ce 05/14/2023 11:2 4 AM EST Impressions 05/14/2023 11:22 AM EST IMPRESSION 1. Negative MRA of the head and neck. Narrative 05/14/2023 11:22 AM EST EXAM MRA NECK W WO CONTRAST; MRA HEAD WO CONTRAST-05/12/2023 HISTORY 82-year-old male. Possible fibromuscular dyplasia per CTA COMPARISON None available TECHNIQUE MRA of the cervical vessels is performed using [id number]-kb-[id number] technique both without and with IV contrast. MRA of the head is performed without contrast. MIP, curved planar, and 3D reformats are provided. FINDINGS MRA NECK: Conventional aortic arch branching anatomy. Origins of the great vessels are widely patent. The innominate artery and bilateral subclavian artery show normal caliber and contour. Bilateral common carotid arteries, carotid bifurcations, and internal carotid arteries show normal caliber and contour. No luminal irregularity, flow- limiting stenosis, or aneurysmal dilatation is noted. Vertebral arteries are patent and codominant, with normal caliber and contour throughout the neck. MRA HEAD: The distal petrous, cavernous, and supraclinoid segments of both internal carotid artery show normal caliber and contour. Bilateral anterior and middle cerebral artery show normal caliber, contour, and arborization. The anterior communicating artery complex is normal. Vertebrobasilar circulation is normal. Persistent origin of the right posterior cerebral artery is noted. Patent left posterior communicating artery is also identified. Imaged proximal posterior cerebral arteries are patent, with normal caliber. No intracranial aneurysm, flow-limiting stenosis, arterial branch occlusion, or other vascular malformations are demonstrated. Procedure Note Nickolas Carter MD - 05/14/2023 EXAM MRA NECK W WO CONTRAST; MRA HEAD WO CONTRAST-05/12/2023 HISTORY 82-year-old male. Possible fibromuscular dyplasia per CTA COMPARISON None available TECHNIQUE MRA of the cervical vessels is performed using [id number]-[id number] techniqueboth without and with IV contrast. MRA of the head is performed withoutcontrast. MIP, curved planar, and 3D reformats are provided. FINDINGS MRA NECK: Conventional aortic arch branching anatomy. Origins of thegreat vessels are widely patent. The innominate artery and bilateralsubclavian artery show normal caliber and contour. Bilateral common carotid arteries, carotid bifurcations, and internalcarotid arteries show normal caliber and contour. No luminalirregularity, flow-limiting stenosis, or aneurysmal dilatation is noted. Vertebral arteries are patent and codominant, with normal caliber andcontour throughout the neck. MRA HEAD: The distal petrous, cavernous, and supraclinoid segments of bothinternal carotid artery show normal caliber and contour. Bilateralanterior and middle cerebral artery show normal caliber, contour, andarborization. The anterior communicating artery complex is normal. Vertebrobasilar circulation is normal. Persistent origin of theright posterior cerebral artery is noted. Patent left posteriorcommunicating artery is also identified. Imaged proximal posteriorcerebral arteries are patent, with normal caliber. No intracranial aneurysm, flow-limiting stenosis, arterial branchocclusion, or other vascular malformations are demonstrated. IMPRESSION IMPRESSION 1. Negative MRA of the head and neck. Veronica Borges MD RAD MRI-MRA * MRA NECK W WO CONTRAST (05/12/2023 2:28 PM EST) Anatomical Region Laterality Modality Neck Magnetic Resonan ce 05/14/2023 11:2 4 AM EST Impressions 05/14/2023 11:22 AM EST IMPRESSION 1. Negative MRA of the head and neck. Narrative 05/14/2023 11:22 AM EST EXAM MRA NECK W WO CONTRAST; MRA HEAD WO CONTRAST-05/12/2023 HISTORY 82-year-old male. Possible fibromuscular dyplasia per CTA COMPARISON None available TECHNIQUE MRA of the cervical vessels is performed using [id number]-yg-[id number] technique both without and with IV contrast. MRA of the head is performed without contrast. MIP, curved planar, and 3D reformats are provided. FINDINGS MRA NECK: Conventional aortic arch branching anatomy. Origins of the great vessels are widely patent. The innominate artery and bilateral subclavian artery show normal caliber and contour. Bilateral common carotid arteries, carotid bifurcations, and internal carotid arteries show normal caliber and contour. No luminal irregularity, flow- limiting stenosis, or aneurysmal dilatation is noted. Vertebral arteries are patent and codominant, with normal caliber and contour throughout the neck. MRA HEAD: The distal petrous, cavernous, and supraclinoid segments of both internal carotid artery show normal caliber and contour. Bilateral anterior and middle cerebral artery show normal caliber, contour, and arborization. The anterior communicating artery complex is normal. Vertebrobasilar circulation is normal. Persistent origin of the right posterior cerebral artery is noted. Patent left posterior communicating artery is also identified. Imaged proximal posterior cerebral arteries are patent, with normal caliber. No intracranial aneurysm, flow-limiting stenosis, arterial branch occlusion, or other vascular malformations are demonstrated. Procedure Note Nickolas Carter MD - 05/14/2023 EXAM MRA NECK W WO CONTRAST; MRA HEAD WO CONTRAST-05/12/2023 HISTORY 82-year-old male. Possible fibromuscular dyplasia per CTA COMPARISON None available TECHNIQUE MRA of the cervical vessels is performed using egbi-rm-maojrj techniqueboth without and with IV contrast. MRA of the head is performed withoutcontrast. MIP, curved planar, and 3D reformats are provided. FINDINGS MRA NECK: Conventional aortic arch branching anatomy. Origins of thegreat vessels are widely patent. The innominate artery and bilateralsubclavian artery show normal caliber and contour. Bilateral common carotid arteries, carotid bifurcations, and internalcarotid arteries show normal caliber and contour. No luminalirregularity, flow-limiting stenosis, or aneurysmal dilatation is noted. Vertebral arteries are patent and codominant, with normal caliber andcontour throughout the neck. MRA HEAD: The distal petrous, cavernous, and supraclinoid segments of bothinternal carotid artery show normal caliber and contour. Bilateralanterior and middle cerebral artery show normal caliber, contour, andarborization. The anterior communicating artery complex is normal. Vertebrobasilar circulation is normal. Persistent origin of theright posterior cerebral artery is noted. Patent left posteriorcommunicating artery is also identified. Imaged proximal posteriorcerebral arteries are patent, with normal caliber. No intracranial aneurysm, flow-limiting stenosis, arterial branchocclusion, or other vascular malformations are demonstrated. IMPRESSION IMPRESSION 1. Negative MRA of the head and neck. Veronica Borges MD RAD MRI-MRA * XR EYE FOREIGN BODY PRE MRI (05/12/2023 12:54 PM EST) Anatomical Region Laterality Modality Head Computed Radiogr aphy 05/12/2023 1:01 PM EST Narrative 05/12/2023 12:58 PM EST EXAM: XR EYE FOREIGN BODY PRE MRI HISTORY: pre mri COMPARISON: None TECHNIQUE: Smalls and lateral views of the orbit were obtained. FINDINGS: There is no radiopaque foreign body within the orbits bilaterally. The sinuses are clear. IMPRESSION: No evidence of intraorbital radiopaque foreign body. Procedure Note Anjum Cortes MD - 05/12/2023 EXAM: XR EYE FOREIGN BODY PRE MRI HISTORY: pre mri COMPARISON: None TECHNIQUE: Smalls and lateral views of the orbit were obtained. FINDINGS: There is no radiopaque foreign body within the orbits bilaterally. The sinuses are clear. IMPRESSION: No evidence of intraorbital radiopaque foreign body. Veronica Borges MD RADIOLOGY (RAD [facility]) documented in this encounter Visit Diagnoses Diagnosis Fibromuscular dysplasia (HCC)- Primary Other specified disorders of arteries and arterioles Right hemiparesis (HCC) Hemiplegia, unspecified, affecting unspecified side documented in this encounter Advance Directives Documents on File Type Date Recorded Patient Chemical Pumper Expl anation Power of Cripple Worker 05/25/2022 POWER OF A TTORNEY - HEALTH CARE Care Teams Autocad Electrical Designer Relationship Specialty Start Date End Date Liborio King DO PCP - General Family Medicine 01/21/18 05/08/23 documented as of this encounter
--- OUTSIDE RECORDS SUMMARY | 2023-06-01 05:25 | External Medical Summary | Summary of Care ---
Author Name Unknown Organization [facility] Address [address] [place] [facility] [place] [place] [address] Phone [phone] Care Team Providers Care Commodities Clerk Name Role Phone Liborio Livingston DO Primary Care Provider [phone] Reason for Referral * Precert (Within 10 days (routine)) - Pending Review Specialty Diagnoses / Procedures Referred By Contac t Referred To Contact Radiology Diagnoses Fibromuscular dysplasia (HCC) Right hemiparesis (HCC) Procedures MRI BRAIN W WO CONTRAST Veronica Borges MD [address] [place] [address] Referral ID Status Reason Start Date Expiration Date V isits Requested Visits Authorized [id number] Pending Review 04/16/2023 999 999 * Precert (Within 10 days (routine)) - Pending Review Specialty Diagnoses / Procedures Referred By Contac t Referred To Contact Radiology Diagnoses Fibromuscular dysplasia (HCC) Right hemiparesis (HCC) Procedures MRA HEAD WO CONTRAST Veronica Borges MD [address] [place] [address] Referral ID Status Reason Start Date Expiration Date V isits Requested Visits Authorized [id number] Pending Review 04/16/2023 999 999 * Precert (Within 10 days (routine)) - Pending Review Specialty Diagnoses / Procedures Referred By Contac t Referred To Contact Radiology Diagnoses Fibromuscular dysplasia (HCC) Right hemiparesis (HCC) Procedures MRA NECK W WO CONTRAST Veronica Borges MD [address] [facility] [place] [address] Referral ID Status Reason Start Date Expiration Date V isits Requested Visits Authorized [id number] Pending Review 04/16/2023 999 999 Reason for Visit * Reason Comments NEW PATIENT Tremors * Evaluate & Treat - Unlimited Visits (Within 10 days (routine)) - Authorized Specialty Diagnoses / Procedures Referred By Contnelia t Referred To Contact Neurology Diagnoses Tremor of right hand Liborio Livingston, DO [address] [place] [address] Referral ID Status Reason Start Date Expiration Date Visits Requested Visits Authorized [id number] Authorized Specialty Services Required 11/24/2022 999 999 Encounter Details Date Type Department Care Team (Late st Contact Info) Description 04/16/2023 10:40 AM EDT Office Visit Neurology [facility] [address] [facility] [place] [address] Veronica Borges MD [address] [facility] [place] [address] Fibromuscular dysplasia (HCC)*; Right hemiparesis (HCC) Allergies No known active allergiesdocumented as of this encounter (statuses as of 05/15/2023) Medications Medication Sig Dispensed Refills Start Date [...] as of this encounter (statuses as of 05/15/2023) Active Problems Problem Noted Date Diagnosed Date Fibromuscular dysplasia 04/18/2023 Episodic tension-type headache, not intractable 01/08/2023 Carotid atherosclerosis, bilateral 01/08/2023 Dyslipidemia, goal LDL below 70 01/08/2023 Bilateral hearing loss 01/08/2023 Right hydrocele 01/08/2023 Age-related cataract of right eye 04/24/2022 Pterygium of left eye 04/24/2022 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 Livingston, who will be receiving a copy of [...] found for: "CLAUDE" No results found for: "OCVW13KFA4" No results found for: "[id number]" No results found for: "ZOSDANDE40SK" No results found for: "25OHVITAMIND" Vitamin D [...] fine tremor with posture and with intention. Bcsg-pb-wzgx is normal. Vibrationsense is present in the [...] and date. New patient referral from Dr Livingston for tremor right arm documented in this encounter Plan of Treatment Upcoming Encounters Date Type Department Care Team (Late st Contact Info) Description 05/18/2023 11:15 AM EST Imaging Radiology [facility] [address] [place] [address] 06/07/2023 9:00 AM EST Office Visit Family Practice [facility] [address] [place] [address] Eleni Jacobson DO [address] [place] [address] 06/13/2023 9:20 AM EST Office Visit Neurology [facility] [address] [place] [address] Montana Cook MD [address] [place] [address] Scheduled Orders Name Type Priority Associated Diagnoses Orde r Schedule MRI BRAIN W WO CONTRAST Medical Imaging Routine Fibromuscular dysplasia (HCC) Right hemiparesis (HCC) Ordered: 04/16/2023 Health Maintenance Due Date Last Done Comments Zoster Vaccines (1 of 2) 1990 COVID-19 Vaccine (2022-2 4 season) 2023 08/25/2020, 08/04/2020 Depression Screening [...] Procedure Name Priority Date/Time Associated Diagnosis Comments MRA HEAD WO CONTRAST Routine 05/12/2023 2:32 PM EST Fibromuscular dysplasia (HCC) Right hemiparesis (HCC) MRA NECK W WO CONTRAST Routine 05/12/2023 2:28 PM EST Fibromuscular dysplasia (HCC) Right hemiparesis (HCC) XR EYE FOREIGN BODY PRE MRI STAT 05/12/2023 12:54 PM EST Fibromuscular dysplasia (HCC) Right hemiparesis (HCC) documented in this encounter Results * MRA HEAD WO CONTRAST (05/12/2023 2:32 [...] of the cervical vessels is performed using wlmk-su-qcrueg technique both without and with IV contrast. [...] of the cervical vessels is performed using ymco-xx-xkxvym techniqueboth without and with IV contrast. MRA [...] of the cervical vessels is performed using yamg-vf-rirtlh technique both without and with IV contrast. [...] of the cervical vessels is performed using fkbb-lw-bkzhxn techniqueboth without and with IV contrast. MRA [...] foreign body. Veronica Borges MD RADIOLOGY ([facility]) documented in this encounter Visit Diagnoses Diagnosis Fibromuscular dysplasia (HCC)- Primary Other specified disorders of arteries and arterioles Right hemiparesis (HCC) Hemiplegia, unspecified, affecting unspecified side documented in this encounter Advance Directives Documents on File Type Date Recorded Patient Law Enforcement Instructor Expl anation Power of Microsoft Infrastructure Consultant 05/25/2022 POWER OF A TTORNEY - HEALTH CARE Care Teams Commodities Clerk Relationship Specialty Start Date End Date Liborio Livingston DO PCP - General Family Medicine 01/21/18 05/08/23 documented as of this encounter
--- OUTSIDE RECORDS SUMMARY | 2023-06-01 05:26 | External Medical Summary ---
Author Name Unknown Address Unknown Organization K09[facility] [address] Laboratory Report Ordering Provider Test Date Status JULITA MCFADDEN 04/16/2023 11:35:55 Final Observation Date Value Abnormality Reference (Units ) Status BUN 04/16/2023 11:35:55 18 6-20 (mg/dL) Final Creatinine 04/16/2023 11:35:55 0.9 0.6-1.2 (mg/dL) Final Glomerular filtration rate/1.73 sq M.predicted [Volume Rate/Area] in Serum, Plasma or Blood by Creatinine-based formula (CKD-EPI) 04/16/2023 11:35:55 82 >=60 (mL/min) Final eGFR is calculated based on the CKD-EPI 2020 equation SODIUM 04/16/2023 11:35:55 141 135-146 (m mol/L) Final Potassium 04/16/2023 11:35:55 4.2 3.5-5.1 (m mol/L) Final Cl 04/16/2023 11:35:55 103 98-107 (mm ol/L) Final CO2 04/16/2023 11:35:55 27 22-32 (mmo l/L) Final Anion gap 04/16/2023 11:35:55 11 7-15 (mmol /L) Final Glucose 04/16/2023 11:35:55 109 70-120 (mg /dL) Final Calcium 04/16/2023 11:35:55 9.7 8.4-10.2 ( mg/dL) Final Performing Location [facility] [address]
--- OUTSIDE RECORDS SUMMARY | 2023-06-01 05:26 | External Medical Summary ---
Author Name Unknown Address Unknown Organization K09[facility] [place] [address] Laboratory Report Ordering Provider Test Date Status JULITA MCFADDEN 04/16/2023 11:35:55 Final Observation Date Value Abnormality Reference (Units ) Status Albumin 04/16/2023 11:35:55 4.7 3.8-5.0 (g/dL) Final AST (Aspartate aminotransferase) 04/16/2023 11:35:55 22 10-50 (U/L) Final Alk Phos 04/16/2023 11:35:55 73 35-130 (U/L) Final ALT (Alanine aminotransferase) 04/16/2023 11:35:55 24 10-50 (U/L) Final Bilirubin, Total 04/16/2023 11:35:55 1.4 Above high normal <=1.2 (mg/dL) Final Bilirubin, Direct 04/16/2023 11:35:55 0.3 0.0-0.3 (mg/dL) Final Protein 04/16/2023 11:35:55 6.9 6.0-8.3 (g/dL) Final Performing Location [facility] [place] [address]
--- OUTSIDE RECORDS SUMMARY | 2023-06-01 05:26 | External Medical Summary | Summary of Care ---
Author Name Unknown Organization [facility] Address [address] [facility] [place] [address] Phone [phone] Care Team Providers Care Revenue Audit Clerk Name Role Phone Liborio King DO Primary Care Provider Reason for Visit * Reason Onset Date Comments Test Results 04/17/2023 Encounter Details Date Type Department Care Team (Late st Contact Info) Description 04/17/2023 Telephone Family Practice [address] [facility] [address] [place] [phone] Liborio King DO [address] [place] [address] Test Results Allergies No known active allergiesdocumented as of this encounter (statuses as of 04/17/2023) Medications Medication Sig Dispensed Refills Start Date [...] as of this encounter (statuses as of 04/17/2023) Active Problems Problem Noted Date Diagnosed Date Episodic tension-type headache, not intractable 01/08/2023 Carotid atherosclerosis, bilateral 01/08/2023 Dyslipidemia, goal LDL below 70 01/08/2023 Bilateral hearing loss 01/08/2023 Right hydrocele 01/08/2023 Age-related cataract of right eye 04/24/2022 Pterygium of left eye 04/24/2022 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 Tremor 04/24/2022 documented as of this encounter (statuses as of 04/17/2023) Immunizations Name Administration Dates Next Due Pneumococcal Conjugate Vacc, 13 Valent (Prevnar) 01/21/2018 Pneumococcal Conjugate Vaccine, 20-valent (Prevn ar20) 04/24/2022 SEASONAL INFLUENZA, PF, 6 M & Above, IM , (FLULAVAL or FLUZONE) 04/23/2018 Seasonal Influenza, Quadrivalent Hd (Fluzone Hd) 04/24/2022 TDAP (age 10 and older)(Boostrix) 11/24/2022 documented as of this encounter Social History Tobacco Use Types Packs/Day Years Used Date Smoking Tobacco: Never Passive Smoke Exposure: Never Smokeless Tobacco: Never Comments:No passive smoke ex posure Alcohol Use Standard Drinks/Week Comments No 0 [...] on file documented as of this encounter Miscellaneous Notes * Telephone Encounter - Liborio King DO - 04/17/2023 8:26 AM EDT Lab studies show LDL cholesterol improved from previous study. Advise continue present medication repeat lab studies for lipid panel, hepatic function panel in 6 months. documented in this encounter Plan of Treatment Upcoming Encounters Date Type Department Care Team (Late st Contact Info) Description 04/18/2023 9:20 AM EDT Office Visit Family Practice [facility] [address] [place] [address] Eleni Jacobson DO [address] [place] [address] 04/30/2023 11:00 AM EST Office Visit Urology [facility] [address] [place] [address] [place] [address] Humberto Godinez MD [address] [place] [address] [place] [address] 05/01/2023 3:30 PM EST Home Visit Care at Home [address] [place] [address] Pat Zamudio PA-C [address] [place] [address] 05/12/2023 1:00 PM EST Imaging Radiology [facility] 1st Floor, [place] [address] [facility] [place] [address] 05/12/2023 1:45 PM EST Imaging Radiology [facility] 1st Floor, [place] [address] [place] [address] 05/12/2023 2:30 PM EST Imaging Radiology [facility] 1st Floor, [place] [address] [facility] [place] [address] 05/18/2023 11:15 AM EST Imaging Radiology [facility] 1st [facility], [place] [address] [place] [address] 06/13/2023 9:20 AM EST Office Visit Neurology [facility] [place] [address] [place] [address] Montana Cook MD [address] [place] [address] Health Maintenance Due Date Last Done Comments Zoster Vaccines (1 of 2) 1990 COVID-19 Vaccine (3 - 2022-2 4 season) 2023 08/25/2020, 08/04/2020 Influenza Vaccine (FLU shot) (#1) 2023 04/24/2022, 04/23/2018 Depression Screening 04/24/2023 04/24/2022 DTaP,Tdap,and Td Vaccines (2 - Td or Tdap) 11/24/2032 11/24/2022 Pneumococcal Vaccine: 65+ Years Completed 04/24/2022, 01/21/2018 GARDASIL-HPV IMMUNIZATION SERIES Aged Out No longer eligible b ased on patient's age to complete this topic Hepatitis B Aged Out No longer eligi ble based on patient's age to complete this topic MENINGOCOCCAL (MENACTRA/MENVEO) Aged Out No longer eligible b ased on patient's age to complete this topic documented as of this encounter Medical Devices Not on filedocumented as of this encounter Advance Directives Documents on File Type Date Recorded Patient Composition Teacher Expl anation Power of Electric Shaver Mechanic 05/25/2022 POWER OF A TTORNEY - HEALTH CARE Care Teams Revenue Audit Clerk Relationship Specialty Start Date End Date Liborio King DO [address] [place] [address] PCP - General Family Medicine 01/21/18 documented as of this encounter
--- OUTSIDE RECORDS SUMMARY | 2023-06-01 05:26 | External Medical Summary | Summary of Care ---
Author Name Unknown Organization [facility] Address [address] [facility] [place] [address] Phone [phone] Care Team Providers Care Power Reactor Supervisor Name Role Phone Liborio King DO Primary Care Provider [phone] Reason for Visit * Reason Onset Date Comments Test Results 04/17/2023 Encounter Details Date Type Department Care Team (Late st Contact Info) Description 04/17/2023 Telephone Family Practice 65 [facility] [address] [place] [place] [phone] Liborio King DO [address] [place] [address] Test Results Allergies No known active allergiesdocumented as of this encounter (statuses as of 04/19/2023) Medications Medication Sig Dispensed Refills Start Date [...] as of this encounter (statuses as of 04/19/2023) Active Problems Problem Noted Date Diagnosed Date Fibromuscular dysplasia 04/18/2023 Episodic tension-type headache, not intractable 01/08/2023 Carotid atherosclerosis, bilateral 01/08/2023 Dyslipidemia, goal LDL below 70 01/08/2023 Bilateral hearing loss 01/08/2023 Right hydrocele 01/08/2023 Age-related cataract of right eye 04/24/2022 Pterygium of left eye 04/24/2022 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 Letter sent to pt. * Telephone Encounter - Megan Mitchell LPN - 04/18/2023 3:51 PM EDT Left message for pt to return call for BW results. * Telephone Encounter - Leny Chirinos LPN - 04/17/2023 9:20 AM EDT Called pt and left vm message for pt to call the office. See Miki's message below. * Telephone Encounter - Liborio King DO - 04/17/2023 8:26 AM EDT Lab studies show LDL cholesterol improved from previous study. Advise continue present medication repeat lab studies for lipid panel, hepatic function panel in 6 months. documented in this encounter Plan of Treatment Upcoming Encounters Date Type Department Care Team (Late st Contact Info) Description 04/30/2023 11:00 AM EST Office Visit Urology [facility] [address] [place] [address] [place] [address] Humberto Godinez MD [address] [place] [address] [place] [address] 05/01/2023 3:30 PM EST Home Visit Care at Home [address] [facility] [place] [address] Pat Zamudio PA-C [address] [place] [address] 05/12/2023 1:00 PM EST Imaging Radiology [address], [place] 132 [facility] [address] 05/12/2023 1:45 PM EST Imaging Radiology [address], [address] [place] [address] 05/12/2023 2:30 PM EST Imaging Radiology [address], [address] [place] [address] 05/18/2023 11:15 AM EST Imaging Radiology [address], [address] [place] [address] 06/13/2023 9:20 AM EST Office Visit [facility]rology [facility] [place] [address] Montana Cook MD [address] [place] [address] Health Maintenance Due Date Last Done Comments [...] Documents on File Type Date Recorded Patient Public Health Representative Expl anation Power of Space Buyer 05/25/2022 POWER OF A TTORNEY - HEALTH CARE Care Teams Power Reactor Supervisor Relationship Specialty Start Date End Date Liborio King DO [address] [place] [address] PCP - General Family Medicine 01/21/18 documented as of this encounter
--- OUTSIDE RECORDS SUMMARY | 2023-06-01 05:26 | External Medical Summary | Summary of Care ---
Author Name Unknown Organization [facility] Address [address] [address] Phone [phone] Care Team Providers Care Manager Strategic Name Role Phone Liborio King DO Primary Care Provider Reason for Referral * Precert (Within 10 days (routine)) - Pending Review Specialty Diagnoses / Procedures Referred By Contac t Referred To Contact Radiology Diagnoses Fibromuscular dysplasia (HCC) Right hemiparesis (HCC) Procedures MRI BRAIN W WO CONTRAST Veronica Borges MD [address] [place] [address] Referral ID Status Reason Start Date Expiration Date V isits Requested Visits Authorized [id number] Pending Review 04/16/2023 999 999 * Precert (Within 10 days (routine)) - Pending Review Specialty Diagnoses / Procedures Referred By Contac t Referred To Contact Radiology Diagnoses Fibromuscular dysplasia (HCC) Right hemiparesis (HCC) Procedures MRA HEAD WO CONTRAST Veronica Borges MD [address] [place] [address] Referral ID Status Reason Start Date Expiration Date V isits Requested Visits Authorized [id number] Pending Review 04/16/2023 999 999 * Precert (Within 10 days (routine)) - Pending Review Specialty Diagnoses / Procedures Referred By Contac t Referred To Contact Radiology Diagnoses Fibromuscular dysplasia (HCC) Right hemiparesis (HCC) Procedures MRA NECK W WO CONTRAST Veronica Borges MD 200 [place] [address] Referral ID Status Reason Start Date Expiration Date V isits Requested Visits Authorized [id number] Pending Review 04/16/2023 999 999 Reason for Visit * Reason Comments NEW PATIENT Tremors * Evaluate & Treat - Unlimited Visits (Within 10 days (routine)) - Authorized Specialty Diagnoses / Procedures Referred By Contnelia t Referred To Contact Neurology Diagnoses Tremor of right hand Liborio King, DO [address] [place] [address] Referral ID Status Reason Start Date Expiration Date Visits Requested Visits Authorized [id number] Authorized Specialty Services Required 11/24/2022 999 999 Encounter Details Date Type Department Care Team (Late st Contact Info) Description 04/16/2023 10:40 AM EDT Office Visit Neurology [facility] [place] 200 [place] [address] Veronica Borges MD [address] [place] [address] Fibromuscular dysplasia (HCC)*; Right hemiparesis (HCC) Allergies No known active allergiesdocumented as of this encounter (statuses as of 04/16/2023) Medications Medication Sig Dispensed Refills Start Date [...] as of this encounter (statuses as of 04/16/2023) Active Problems Problem Noted Date Diagnosed Date Episodic tension-type headache, not intractable 01/08/2023 Carotid atherosclerosis, bilateral 01/08/2023 Dyslipidemia, goal LDL below 70 01/08/2023 Bilateral hearing loss 01/08/2023 Right hydrocele 01/08/2023 Age-related cataract of right eye 04/24/2022 Pterygium of left eye 04/24/2022 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 He is no difficulty rollingin bed or getting out of a chair [...] Lab Results Component Value Date/Time [facility] 11/24/2022 10:07 AM [facility] - OUTSIDE LAB 1.554 01/01/2023 12:00 AM No results found for: "CLAUDE" No results found for: "BKWZ03ZJE2" No results found for: "WWUQ99TXV0" No results found for: "VKNIXLOP48QQ" No results found for: "25OHVITAMIND" Vitamin D [...] fine tremor with posture and with intention. Asbt-iv-bnpt is normal. Vibrationsense is present in the [...] Team (Late st Contact Info) Description 04/16/2023 11:50 AM EDT Laboratory Laboratory [facility] [address] [place] [id number] Spray [facility] [address] [place] [address] Dyslipidemia, goal LDL below 70 04/18/2023 9:20 AM EDT Office Visit Family Practice [facility] [address] [place] [address] Eleni Jacobson DO [address] [place] [address] 04/30/2023 11:00 AM EST Office Visit Urology [facility] [address] [place] [address] [place] [address] Humberto Godinez MD [address] [place] [address] [place] [address] 05/01/2023 3:30 PM EST Home Visit Care at Home [address] [place], [place] [id number] Pat Zamudio PA-C [address] [place], [place] [id number] 05/12/2023 1:00 PM EST Imaging Radiology [address], [address] [place] [address] 05/12/2023 1:45 PM EST Imaging Radiology [address], [address] [place] [address] 05/12/2023 2:30 PM EST Imaging Radiology [address], [address] [place] [address] 05/18/2023 11:15 AM EST Imaging Radiology [address], [address] [place] [address] 06/13/2023 9:20 AM EST Office Visit Neurology [facility] [address] [facility] [place] [address] Montana Cook MD [address] [place] [address] Scheduled Orders Name Type Priority Associated Diagnoses Orde r Schedule MRA NECK W WO CONTRAST Medical Imaging Routine Fibromuscular dysplasia (HCC) Right hemiparesis (HCC) Ordered: 04/16/2023 MRA HEAD WO CONTRAST Medical Imaging Routine Fibromuscular dysplasia (HCC) Right hemiparesis (HCC) Ordered: 04/16/2023 MRI BRAIN W WO CONTRAST Medical Imaging Routine Fibromuscular dysplasia (HCC) Right hemiparesis (HCC) Ordered: 04/16/2023 XR EYE FOREIGN BODY PRE MRI Medical Imaging STAT Fibromuscular dysplasia (HCC) Right hemiparesis (HCC) Ordered: [...] Not on filedocumented as of this encounter Visit Diagnoses Diagnosis Fibromuscular dysplasia (HCC)- Primary Other specified disorders of arteries and arterioles Right hemiparesis (HCC) Hemiplegia, unspecified, affecting unspecified side Dyslipidemia, goal LDL below 70 Other and unspecified hyperlipidemia documented in this encounter Advance Directives Documents on File Type Date Recorded Patient Aircraft Maintenance Instructor Expl anation Power of Street Sprinkler 05/25/2022 POWER OF A TTORNEY - HEALTH CARE Care Teams Manager Strategic Relationship Specialty Start Date End Date Liborio King DO [address] [place] [address] PCP - General Family Medicine 01/21/18 documented as of this encounter
--- OUTSIDE RECORDS SUMMARY | 2023-06-01 05:26 | External Medical Summary | Summary of Care ---
Author Name Unknown Organization [facility] Address [address] [facility] [place] [address] Phone [phone] Care Team Providers Care Industrial Furnace Fabricator Name Role Phone Liborio King DO Primary Care Provider Reason for Visit * Reason Onset Date Comments Test Results 04/17/2023 Encounter Details Date Type Department Care Team (Late st Contact Info) Description 04/17/2023 Telephone Family Practice 65 [facility] [address] [place] [address] Liborio King DO [address] [place] [address] Test Results Allergies No known active allergiesdocumented as of this encounter (statuses as of 04/18/2023) Medications Medication Sig Dispensed Refills Start Date [...] as of this encounter (statuses as of 04/18/2023) Active Problems Problem Noted Date Diagnosed Date Fibromuscular dysplasia 04/18/2023 Episodic tension-type headache, not intractable 01/08/2023 Carotid atherosclerosis, bilateral 01/08/2023 Dyslipidemia, goal LDL below 70 01/08/2023 Bilateral hearing loss 01/08/2023 Right hydrocele 01/08/2023 Age-related cataract of right eye 04/24/2022 Pterygium of left eye 04/24/2022 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 Tremor 04/24/2022 documented as of this encounter (statuses as of 04/18/2023) Immunizations Name Administration Dates Next Due Pneumococcal [...] encounter Miscellaneous Notes * Telephone Encounter - Megan Mitchell LPN [...] [address] [place] [address] [place] [address] Humberto Godinez MD [address] [place] [address] [place] [address] 05/01/2023 3:30 PM EST Home Visit Care at Home [address] [place] [address] Pat Zamudio PA-C [address] [place] [address] 05/12/2023 1:00 PM EST Imaging Radiology [address], [place] [address] [place] [address] 05/12/2023 1:45 PM EST Imaging Radiology [address], [place] [address] [place] [address] 05/12/2023 2:30 PM EST Imaging Radiology [address], [place] [address] [place] [address] 05/18/2023 11:15 AM EST Imaging Radiology [address], [place] 132 [facility] [place] [address] 06/13/2023 9:20 AM EST Office Visit Neurology [facility] [address] [place] [address] oMntana Cook MD [address] [place] [address] Health Maintenance Due Date Last Done Comments [...] Documents on File Type Date Recorded Patient Insole Tacker Expl anation Power of Plugman 05/25/2022 POWER OF A TTORNEY - HEALTH CARE Care Teams Industrial Furnace Fabricator Relationship Specialty Start Date End Date Liborio King DO [address] [place] [address] PCP - General Family Medicine 01/21/18 documented as of this encounter
--- OUTSIDE RECORDS SUMMARY | 2023-06-01 05:26 | External Medical Summary | Summary of Care ---
Author Name Unknown Organization [facility] Address [address] [facility] [address] Phone [phone] Care Team Providers Care Marketing Services Rep Name Role Phone FernandoLiborio Primary Care Provider [phone] Reason for Visit * Reason Comments Outpatient Testing Encounter Details Date Type Department Care Team (Late st Contact Info) Description 04/16/2023 11:50 AM EDT Laboratory Laboratory [facility] [place] [address] [place] [phone] [facility] [address] [place] [address] Dyslipidemia, goal LDL below 70 Allergies No known active allergiesdocumented as of [...] on file documented as of this encounter Plan of Treatment Upcoming Encounters Date Type Department Care Team (Late st Contact Info) Description 04/18/2023 9:20 AM EDT Office Visit Family Practice [facility] [address] [facility] [place] [address] Eleni Jacobson DO 132 [facility] [place] [address] 04/30/2023 11:00 AM EST Office Visit Urology [facility] [address] [place] [address] [place] [address] Humberto Godinez MD [address] [place] [address] [place] [address] 05/01/2023 3:30 PM EST Home Visit Care at Home [address] [place] [address] Pat Zamudio PA-C [address] [place] [address] 05/12/2023 1:00 PM EST Imaging Radiology [address], [place] 132 [facility] [place] [address] 05/12/2023 1:45 PM EST Imaging Radiology [address], [place] 132 [facility] [place] [address] 05/12/2023 2:30 PM EST Imaging Radiology [address], [place] 132 [facility] [place] [address] 05/18/2023 11:15 AM EST Imaging Radiology [address], [place] 132 [facility] [place] [address] 06/13/2023 9:20 AM EST Office Visit Neurology [facility] [address] [place] [address] Montana Cook MD [address] [place] [address] Pending Results Name Type Priority Associated Diagnoses Date /Time LIPID PANEL WITH DIRECT LDL IF TG IS HIGH Lab Routine Dyslipidemia, goal LDL below 70 04/16/2023 11:35 AM EDT BASIC METABOLIC PANEL Lab Routine Dyslipidemia, goal LDL below 70 04/16/2023 11:35 AM EDT HEPATIC FUNCTION PANEL Lab Routine Dyslipidemia, goal LDL below 70 04/16/2023 11:35 AM EDT Health Maintenance Due Date Last Done Comments [...] as of this encounter Visit Diagnoses Diagnosis Dyslipidemia, goal LDL below 70 Other and unspecified hyperlipidemia documented in this encounter Advance Directives Documents on File Type Date Recorded Patient Special Programs Director Expl anation Power of Frame Expander 05/25/2022 POWER OF A TTORNEY - HEALTH CARE Care Teams Marketing Services Rep Relationship Specialty Start Date End Date Liborio King DO [address] [place] [address] PCP - General Family Medicine 01/21/18 documented as of this encounter
--- OUTSIDE RECORDS SUMMARY | 2023-06-01 05:26 | External Medical Summary | Summary of Care ---
Author Name Unknown Organization [facility] Address [address] [facility] [place] [address] Phone [phone] Care Team Providers Care Electrical Tech Name Role Phone Liborio King DO Primary Care Provider Reason for Visit * Reason Onset Date Comments Test Results 04/17/2023 Encounter Details Date Type Department Care Team (Late st Contact Info) Description 04/17/2023 Telephone Family Practice 65 [facility] [address] [place] [address] Liborio King DO [address] [place] [address] Test Results Allergies No known active allergiesdocumented as of this encounter (statuses as of 04/23/2023) Medications Medication Sig Dispensed Refills Start Date [...] as of this encounter (statuses as of 04/23/2023) Active Problems Problem Noted Date Diagnosed Date Fibromuscular dysplasia 04/18/2023 Episodic tension-type headache, not intractable 01/08/2023 Carotid atherosclerosis, bilateral 01/08/2023 Dyslipidemia, goal LDL below 70 01/08/2023 Bilateral hearing loss 01/08/2023 Right hydrocele 01/08/2023 Age-related cataract of right eye 04/24/2022 Pterygium of left eye 04/24/2022 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 Tremor 04/24/2022 documented as of this encounter (statuses as of 04/23/2023) Immunizations Name Administration Dates Next Due Pneumococcal [...] encounter Miscellaneous Notes * Telephone Encounter - Judy Weiss LPN - 04/23/2023 11:07 AM EDT Patient's daughter/JOSE Leung aware and verbalized understanding, will comply * Telephone Encounter - Leny Chirinos LPN [...] [facility] [address] [place] [address] [place] [address] Humberto Godinez MD [address] [place] [address] [facility] [place] [address] 05/01/2023 3:30 PM EST Home Visit Care at Home [address] [place] [address] Pat Zamudio PA-C [address] [place] [address] 05/12/2023 1:00 PM EST Imaging Radiology [facility] 1st Floor, [address] [place] [address] 05/12/2023 1:45 PM EST Imaging Radiology [facility] 1st Floor, [address] [place] [address] 05/12/2023 2:30 PM EST Imaging Radiology [facility] 1st Floor, [address] [place] [address] 05/18/2023 11:15 AM EST Imaging Radiology [facility] 1st [facility], [address] [place] [address] 06/13/2023 9:20 AM EST Office Visit Neurology [facility] [address] [place] [address] Montana Cook MD [address] [place] [address] Health Maintenance Due Date Last Done Comments [...] Documents on File Type Date Recorded Patient Depalletizer Operator Expl anation Power of Field Artillery Operations Man 05/25/2022 POWER OF A TTORNEY - HEALTH CARE Care Teams Electrical Tech Relationship Specialty Start Date End Date Liborio King DO [address] [place] [address] PCP - General Family Medicine 01/21/18 documented as of this encounter
--- OUTSIDE RECORDS SUMMARY | 2023-06-01 05:26 | External Medical Summary | Summary of Care ---
Author Name Unknown Organization [facility] Address [address] [facility] [place] [address] Phone [phone] Care Team Providers Care Sawyer Cork Slabs Name Role Phone Liborio King DO Primary Care Provider Reason for Visit * Reason Onset Date Comments Test Results 04/17/2023 Encounter Details Date Type Department Care Team (Late st Contact Info) Description 04/17/2023 Telephone Family Practice 65 [facility] [address] [place] [id number] Liborio King DO [address] [place] [address] Test Results Allergies No known active allergiesdocumented [...] 9:20 AM EDT Office Visit Family Practice [facility] [address] [place] [address] Eleni Jacobson DO [address] [place] [address] 04/30/2023 11:00 AM EST Office Visit Urology [facility] [address] [place] [address] [place] [address] Humberto Godinez MD [address] [place] [address] [place] [address] 05/01/2023 3:30 PM EST [facility] [address] [facility] [address] Pat Zamudio PA-C [address] [facility] [place] [address] 05/12/2023 1:00 PM EST Imaging Radiology [address] [place] [address] 05/12/2023 1:45 PM EST Imaging Radiology [address], [place] 132 [facility] [place] [address] 05/12/2023 2:30 PM EST Imaging Radiology [address], [place] 132 [facility] [place] [address] 05/18/2023 11:15 AM EST Imaging Radiology [address] 132 [facility] [place] [address] 06/13/2023 9:20 AM EST Office Visit Neurology [facility] [address] [place] [address] Montana Cook MD [address] [facility] [address] Health Maintenance Due Date Last Done Comments [...] Documents on File Type Date Recorded Patient Shake Loader Expl anation Power of Pond Sawyer 05/25/2022 POWER OF A TTORNEY - HEALTH CARE Care Teams Sawyer Cork Slabs Relationship Specialty Start Date End Date Liborio King DO [address] [place] [address] PCP - General Family Medicine 01/21/18 documented as of this encounter
--- OUTSIDE RECORDS SUMMARY | 2023-06-01 05:26 | External Medical Summary | Summary of Care ---
Author Name Unknown Organization [facility] Address [address] [facility] [place] [address] Phone [phone] Care Team Providers Care New Car Salesperson Name Role Phone Lupillo Kinginic Primary Care Provider [phone] Reason for Referral * Precert (Within 10 days (routine)) - Authorized Specialty Diagnoses / Procedures Referred By Contac t Referred To Contact Cardiac Studies Diagnoses Undiagnosed cardiac murmurs Fibromuscular dysplasia (HCC) Procedures ECHO, COMPLETE (2D), TRANS-THORACIC Eleni Jacobson DO [address] [place] [address] Referral ID Status Reason Start Date Expiration Date V isits Requested Visits Authorized [id number] Authorized Precert 04/18/2023 999 999 Reason for Visit * Reason Onset Date Comments Re-Check 3 month return Medication Administration 04/18/2023 Flu an d/or Pneumo Inj Encounter Details Date Type Department Care Team (Late st Contact Info) Description 04/18/2023 9:20 AM EDT Office Visit Family Practice [facility] [address] [place] [address] Eleni Jacobson DO [address] [place] [address] Well adult exam*; Need for prophylactic vaccination and inoculation against influenza; Serum total bilirubin elevated; Undiagnosed cardiac murmurs; Fibromuscular dysplasia (HCC); Resting tremor; BPH with obstruction/lower urinary tract symptoms; Dyslipidemia, goal LDL below 70 Allergies No [...] Sign Reading Time Taken Comments Blood Pressure 120/60 04/18/2023 8:51 AM EDT Pulse 60 04/18/2023 8:51 AM EDT Temperature - - Respiratory Rate - - Oxygen Saturation - - Inhaled Oxygen Concentration - - Weight 73.3 kg (161 lb 8 oz) 04/18/2023 8:51 AM EDT Height - - Body Mass Index 27.29 04/16/2023 10:25 AM EDT documented in this encounter Progress Notes * Eleni Jacobson, - 04/18/2023 8:56 AM EDT Subjective: Lance Neves is a 82 year old male. Chief Complaint Patient presents with Re-Check 3 month return Medication Administration Flu and/or Pneumo Inj HPI: This is a 82 year old male with PMHx as below presents for annual well check. DL - statin BPH - proscar, flomax VSS Recently saw neuro for tremor - new dx fibromuscular dysplasia - has imaging MRI/MRA pending. ? Parkinsons Imaging showing mild carotid disease Reviewed labs - mild elevation bili - plan for repeat Patient Active Problem List Diagnosis Code Age-related cataract of right eye H25.9 Pterygium of left eye H11.002 BPH with obstruction/lower urinary tract symptoms N40.1, N13.8 Tremor R25.1 Episodic tension-type headache, not intractable G44.219 Carotid atherosclerosis, bilateral I65.23 Dyslipidemia, goal LDL below 70 E78.5 Bilateral hearing loss H91.93 Right hydrocele N43.3 Fibromuscular dysplasia (HCC) I77.3 Current Outpatient Medications Medication Sig Dispense Refill Finasteride 5 MG Oral Tablet (Proscar) Take [...] the morning. with food.. 100 Tablet 2 zoster vac recomb adjuvanted (SHINGRIX) 50 MCG/0.5ML injection Inject 0.5 mL into a large muscle now and repeat dose in 60 to 180 days (Patient not taking: Reported on 11/24/2022) 1 Each 1 No current facility-administered medications for this visit. Past Medical History: Diagnosis Date Cataract Urinary retention 12/2017 Past Surgical History: Procedure Laterality Date NONE Review of patient's allergies indicates: No Known Allergies No family history on file. No family status information on file. Social History Socioeconomic History Marital status: Spouse [...] on file Housing Stability: Not on file Did the patient complete the screening questionnaire for Depression: Yes. In general, compared to other people your age, what would you say that your health is? Good Not Applicable Hospital ER within 30 days: No Patient is able to obtain all of his medications? Yes Patient takes medications as prescribed? Yes Tobacco screening completed today: Yes Non-smoker Alcohol screening completed today: Yes Does not use alcohol Spirometry: Not applicable Dental Exam: No Eye Screening: saw [facility] in the past Exercise Screening: only the exercise associated with activities at work Nutrition Assessment: Eats a balanced diet Pain Screening: Yes Are you having any pain? No Review of Systems: As per HPI all other ROS negative. Results for orders placed or performed in visit on 04/16/23 LIPID PANEL WITH DIRECT LDL IF TG IS HIGH Result Value Ref Range Triglycerides 125 <=174 mg/dL Cholesterol 134 <200 mg/dL HDL Cholesterol 48 >39 mg/dL Non-HDL Cholesterol 86 <=159 mg/dL LDL Cholesterol 61 <=129 mg/dL BASIC METABOLIC PANEL Result Value Ref Range BUN 18 6 - 20 mg/dL Creatinine 0.9 0.6 - 1.2 mg/dL Estimated Glomerular Filtration Rate 82 >=60 mL/min Sodium 141 135 - 146 mmol/L Potassium 4.2 3.5 - 5.1 mmol/L Chloride 103 98 - 107 mmol/L CO2 27 22 - 32 mmol/L Anion Gap 11 7 - 15 mmol/L Glucose 109 70 - 120 mg/dL Calcium 9.7 8.4 - 10.2 mg/dL HEPATIC FUNCTION PANEL Result Value Ref Range Albumin 4.7 3.8 - 5.0 g/dL AST 22 10 - 50 U/L Alkaline Phosphatase 73 35 - 130 U/L ALT 24 10 - 50 U/L Bilirubin, Total 1.4 (H) <=1.2 mg/dL Bilirubin, Direct 0.3 0.0 - 0.3 mg/dL Protein 6.9 6.0 - 8.3 g/dL Wt Readings from Last 3 Encounters: 04/18/23 73.3 kg (161 lb 8 oz) 04/16/23 73.4 kg (161 lb 12.8 oz) 01/08/23 70.9 kg (156 lb 3.2 oz) Health Maintenance Due Topic Date Due Zoster Vaccines (1 of 2) Never done Influenza Vaccine (FLU shot) (1) 02/23/2023 COVID-19 Vaccine (3 - 2022- season) 2023 Depression Screening 04/24/2023 OBJECTIVE: Physical Exam: BP 120/60 | Pulse 60 | Wt 73.3 kg (161 lb 8 oz) | BMI 27.29 kg/m | BSA 1.83 m General: alert, healthy, and no distress Head: Normocephalic, No masses, lesions, tenderness or abnormalities Eye Exam: PERRLA, extraocular movements intact, conjunctiva are pink and non- injected, sclera clear Oropharynx: no exudate, no erythema, lips, buccal mucosa, and tongue normal, and mucous membranes are moist Neck: supple, no adenopathy, no bruits Heart: regular rate & rhythm, no gallops, and pos EUSEBIO Lungs: lungs clear to auscultation Abdomen: abdomen soft, non-tender, normal bowel sounds, and no masses or organomegaly Extremities: no joint deformities, effusion, or inflammation, no edema Well adult exam (Primary) Need for prophylactic vaccination and inoculation against influenza - INFLUENZA VACC, QUAD, HIGH DOSE (FLUZONE HD) Serum total bilirubin elevated - HEPATIC FUNCTION PANEL; Future; Expected date: 07/19/2023 Undiagnosed cardiac murmurs Fibromuscular dysplasia (HCC) Resting tremor BPH with obstruction/lower urinary tract symptoms Dyslipidemia, goal LDL below 70 Follow Up: Return in about 6 months (around 10/18/2023), or if symptoms worsen or fail to improve, for Clinic Visit. | For: Clinic Visit Discussed with patient: -HEALTH PROMOTION: Adequate sleep (8-10 hours/night), regular exercise, balanced diet, dental care,limiting sedentary activities (TV, computer, Internet) -MENTAL HEALTH: Discuss feelings with an someone that they can trust -INJURY PREVENTION: Driving Safety, Seat Belts, Sun Safety, No Weapons, Conflict Resolution, Personal Safety -SUBSTANCE ABUSE: Tobacco, Drugs, Alcohol Eleni Jacobson DO * Megan Mitchell LPN - 04/18/2023 8:53 AM EDT PRE - ADMINISTRATION DOCUMENTATION Are you experiencing any cold symptoms or fever? No Have you had Guillain-[place] Syndrome (an illness that causes paralysis) within the last 6 weeks? No Have you had the flu shot in the past? YES Have you ever had a reaction to the flu shot? No Megan Mitchell LPN, 04/18/2023 8:53 AM Immunization Administration Documentation Time Out Procedure Performed: Yes Patient Identified (Ask Name/Date of ): Yes Does the patient have a fever greater than 101 degrees today? No Patient allergic to latex? No VFC Stock: No Injection(s) verified: Yes, Injection Name: Fluzone Verified Side and Site: Yes Verified Shot(s) with Parent(s)/Patient: Yes documented in this encounter Plan of Treatment Upcoming Encounters Date Type Department Care Team (Late st Contact Info) Description 04/30/2023 11:00 AM EST Office Visit Urology [facility] [address] [place] [address] [place] [address] Humberto Godinez MD [address] [place] [address] [place] [address] 05/01/2023 3:30 PM EST Home Visit Care at Home [address] [place] [address] Pat Zamudio PA-C [address] [place] [address] 05/12/2023 1:00 PM EST Imaging Radiology [facility] 1st [facility], [address] [place] [address] 05/12/2023 1:45 PM EST Imaging Radiology [facility] 1st Floor, [address] [place] [address] 05/12/2023 2:30 PM EST Imaging Radiology [facility] 1st Floor, [place] [address] 05/18/2023 11:15 AM EST Imaging Radiology [facility]st [facility], [address] [place] [address] 06/13/2023 9:20 AM EST Office Visit Neurology [facility]der[facility] [address] [place] [address] Montana Cook MD [address] [facility] [place] [address] Scheduled Orders Name Type Priority Associated Diagnoses Orde r Schedule HEPATIC FUNCTION PANEL Lab Routine Serum total bilirubin elevated Expected: 07/19/2023 (Approximate), Expires: 04/17/2024 ECHO, COMPLETE (2D), TRANS-THORACIC Echocardiology Routine Undiagnosed cardiac murmurs Fibromuscular dysplasia (HCC) Expected: 04/18/2023, Expires: 05/19/2025 Health Maintenance Due Date Last Done Comments [...] as of this encounter Visit Diagnoses Diagnosis Well adult exam- Primary Routine general medical examination at a health care facility Need for prophylactic vaccination and inoculation against influenza Serum total bilirubin elevated Jaundice, unspecified, not of Undiagnosed cardiac murmurs Fibromuscular dysplasia (HCC) Other specified disorders of arteries and arterioles Resting tremor Abnormal involuntary movements BPH with obstruction/lower urinary tract symptoms Hypertrophy of prostate with urinary obstruction and other lower urinary tract symptoms (LUTS) Dyslipidemia, goal LDL below 70 Other and unspecified hyperlipidemia documented in this encounter Advance Directives Documents on File Type Date Recorded Patient Programs Manager Expl anation Power of Bobbin Cleaner 05/25/2022 POWER OF A TTORNEY - HEALTH CARE Care Teams New Car Salesperson Relationship Specialty Start Date End Date Liborio King DO [address] [place] [address] PCP - General Family Medicine 01/21/18 documented as of this encounter"
--- OUTSIDE RECORDS SUMMARY | 2023-06-01 05:26 | External Medical Summary | Summary of Care ---
Author Name Unknown Organization [facility] Address [address] [facility] [place] [address] Phone [phone] Care Team Providers Care Relocation Services Specialist Name Role Phone Liborio King DO Primary Care Provider Reason for Visit * Reason Onset Date Comments Encounter Created in Error 04/16/2023 Encounter Details Date Type Department Care Team (Late st Contact Info) Description 04/16/2023 Telephone Family Practice [facility] [address] [place] [address] Liborio King DO [address] [place] [id number] Encounter Created in Error Allergies No known active allergiesdocumented as of [...] 04/18/2023 9:20 AM EDT Office Visit Family [facility] [address] [place] [address] Eleni Jacobson DO [address] [place] [address] 04/30/2023 11:00 AM EST Office Visit Urology [facility] [address] [place] [address] [place] [address] Humberto Godinez MD [address] [place] [address] [place] [address] 05/01/2023 3:30 PM EST Home Visit Care at Home [address] [place] [address] Pat Zamudio PA-C [address] [place] [address] 05/12/2023 1:00 PM EST Imaging Radiology [address], [place] [address] [facility] [place] [address] 05/12/2023 1:45 PM EST Imaging Radiology [address], [place] 132 [facility] [place] [address] 05/12/2023 2:30 PM EST Imaging Radiology [address], [place] 132 [facility] [place] [address] 05/18/2023 11:15 AM EST Imaging Radiology [address], [place] [address] [place] [address] 06/13/2023 9:20 AM EST Office Visit Neurology [facility] [address] [place] [address] Montana Cook MD [address] [place] [address] Health Maintenance Due Date Last Done Comments [...] Documents on File Type Date Recorded Patient Lunchroom Supervisor Expl anation Power of Doctor Podiatric Medicine 05/25/2022 POWER OF A TTORNEY - HEALTH CARE Care Teams Relocation Services Specialist Relationship Specialty Start Date End Date Liborio King DO [address] [place] [address] PCP - General Family Medicine 01/21/18 documented as of this encounter
--- OUTSIDE RECORDS SUMMARY | 2023-06-01 05:27 | External Medical Summary | Summary of Care ---
Author Name Unknown Organization [facility] Address [address] [facility] [place] [address] Phone [phone] Care Team Providers Care Fruit Express Agent Name Role Phone FernandoLiborio hassan Primary Care Provider Encounter Details Date Type Department Care Team Description 01/01/2023 Result Scan Unspecified Department <No scans attached> Allergies No known active allergiesdocumented as of this encounter (statuses as of 01/09/2023) Medications Medication Sig Dispensed Refills Start Date [...] the morning. 90 Capsule 3 04/24/2022 Active documented as of this encounter (statuses as of 01/09/2023) Active Problems Problem Noted Date Episodic tension-type headache, 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 01/08/2023 Carotid atherosclerosis, bilateral 01/08 Dyslipidemia, goal LDL below 70 01/09/20 23 Bilateral hearing loss 01/08/2023 Right hydrocele 01/08/2023 Age-related cataract of right eye 2021 Pterygium of left eye 04/24/2022 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 Tremor 04/24/2022 documented as of this encounter (statuses as of 01/09/2023) Immunizations Name Administration Dates Next Due Pneumococcal Conjugate Vacc, 13 Valent (Prevnar) 01/21/2018 Pneumococcal Conjugate Vaccine, 20-valent (Prevn ar20) 04/24/2022 Seasonal Influenza, Quadrivalent Hd (Fluzone Hd) 04/24/2022 Seasonal Influenza, Quadriva lent, No Preserve, 6 Mons & Above, IM 04/23/2018 TDAP (age 10 and older)(Boostrix) 11/24/2022 documented as of this encounter Social History Tobacco Use Types Packs/Day Years Used Date Smoking Tobacco: Never Smokeless Tobacco: Never Alcohol Use Standard Drinks/Week Comments No 0 (1 standard drink = 0.6 oz pur e alcohol) Food Insecurity Answer Date Recorded Within the past 12 months, y ou worried that your food would run out before you got money to buy more. Never true 04/24/2022 Within the past 12 months, t he food you bought just didn't last and you didn't have money to get more. Never true 04/24/2022 Sex Assigned at Date Recorded Not on file Job Start Date Occupation Industry Not on file Not on file Not on file documented as of this encounter Plan of Treatment Upcoming Encounters Date Type Specialty Care Team Description 04/16/2023 Office Visit Neurology Veronica Borges MD [address] [place] [address] 04/18/2023 Office Visit Family Medicine Liborio King, [address] [place] [address] 04/30/2023 Office Visit Urology Humberto Godinez MD [address] [place] [address] [place] [address] 06/13/2023 Office Visit [facility]rology [facility] [address] [facility] [address] Health Maintenance Due Date Last Done Comments COVID-19 Vaccine (#1) 02/04/1941 Zoster Vaccines (1 of 2) 1990 Influenza Vaccine (FLU shot) (#1) 2023 04/24/2022, 04/23/2018 Depression Screening, Annual for Pts 12 and Over 04/24/2023 04/24/2022 DTaP,Tdap,and Td Vaccines (2 - [...] Procedure Name Priority Date/Time Associated Diagnosis Comments RADIOLOGY SCANNED RESULT 01/01/2023 documented in this encounter Results * RADIOLOGY SCANNED RESULT (01/01/2023) 01/01/2023 No Physician Data Unknown DIAGNOSTIC RAD IOLOGY SERVICES documented in this encounter Advance Directives Documents on File Type Date Recorded Patient Supervisor Scrap Preparation Expl anation Power of Hand Launderer 05/25/2022 POWER OF A TTORNEY - HEALTH CARE Care Teams Fruit Express Agent Relationship Specialty Start Date End Date Liborio King DO [address] [place] [address] PCP - General Family Medicine 01/21/18 documented as of this encounter
--- OUTSIDE RECORDS SUMMARY | 2023-06-01 05:27 | External Medical Summary | Summary of Care ---
Author Name Unknown Organization [facility] Address [address] [facility] [address] Phone [phone] Care Team Providers Care Yardage Tufting Machine Operator Name Role Phone Liborio King DO Primary Care Provider Encounter Details Date Type Department Care Team Description 01/09/2023 Orders Only Family Practice [facility] [address] [place] [address] Liborio King DO [address] [place] [address] Allergies No known active allergiesdocumented as of [...] 01/08 Dyslipidemia, goal LDL below 70 01/09/20 Bilateral hearing loss 01/08/2023 Right hydrocele 01/08/2023 [...] Office Visit Neurology Veronica Borges MD [address] [place] [address] 04/18/2023 Office Visit Family Medicine Lupillo KinginicDO [address] [place] [address] 04/30/2023 Office Visit Urology Humberto Godinez MD [address] [place] [address] [place] [address] 06/13/2023 Office Visit Neurology Montana Cook MD [address] [place] [address] Health Maintenance Due Date Last Done Comments [...] Procedure Name Priority Date/Time Associated Diagnosis Comments CHEMISTRY-OUTSIDE Routine 01/01/2023 TSH Routine 01/01/2023 documented in this encounter Results * TSH (01/01/2023) TSH - OUTSIDE LAB 1.554 0.300 - 4.500 UIU/ML OUTSIDE LAB (SEE SCANNED REPORT) Blood Venous blood specimen / Unknown 01/01/2023 History Per Patient LAB BLOOD ORDERABLES OUTSIDE LAB (SEE SCANNED REPORT) * (ABNORMAL) CHEMISTRY-OUTSIDE (01/01/2023) Not all results display below - see scan for full detail OUTSIDE LAB (SEE SCANNED REPORT) Comment:ED LABS CBCD, UA, LY ME,INF A OR B CREATININE-OUTSID E LAB 1.10 0.6 - 1.4 MG/DL OUTSIDE LAB (SEE SCANNED REPORT) EGFR-OUTSIDE LAB 62.2 ML/MIN OUT SIDE LAB (SEE SCANNED REPORT) POTASSIUM-OUTSIDE LAB 4.2 3.5 - 5.1 MMOL/L OUTSIDE LAB (SEE SCANNED REPORT) GLUCOSE-OUTSIDE LAB 130(A) 70 - 99 MG/DL OUTSIDE LAB (SEE SCANNED REPORT) HOURS FASTING OUTSID E LAB (SEE SCANNED REPORT) TRIGLYCERIDES-OUT SIDE LAB OUTSIDE LAB (SEE SCANNED REPORT) CHOLESTEROL-OUTSI DE LAB OUTSIDE LAB (SEE SCANNED REPORT) HDL-OUTSIDE LAB OUTS [facility] LAB (SEE SCANNED REPORT) CHOL/HDL RATIO-OUTSIDE LAB OUTSIDE LA B (SEE SCANNED REPORT) LDL (CALCULATED)-OUTS [facility] LAB OUTSIDE LAB (SEE SCANNED REPORT) LDL (DIRECT MEASURE)-OUTSIDE LAB OUTSIDE LAB (SEE SCANNED REPORT) HEMOGLOBIN, [id number] LAB OUTSIDE LAB (SEE SCANNED REPORT) PHOSPHORUS-OUTSID E LAB 3.0 2.5 - 4.9 MG/DL OUTSIDE LAB (SEE SCANNED REPORT) PTH-OUTSIDE LAB OUTS [place] LAB (SEE SCANNED REPORT) MICROALBUMIN RATIO-OUTSIDE LAB OUTSIDE LA B (SEE SCANNED REPORT) PROTEIN, UA-OUTSIDE LAB OUTSIDE LAB (SEE SCANNED REPORT) HEMOGLOBIN-OUTSID E LAB 16.1 14.0 - 18.0 G/DL OUTSIDE LAB (SEE SCANNED REPORT) 01/01/2023 History Per Patient LABORATORY OUTSIDE LAB (SEE SCANNED REPORT) documented in this encounter Advance Directives Documents on File Type Date Recorded Patient Senior Structural Engineer Expl anation Power of Drill Press Operator Numerical Control 05/25/2022 POWER OF A TTORNEY - HEALTH CARE Care Teams Yardage Tufting Machine Operator Relationship Specialty Start Date End Date Liborio King DO [address] [place] [address] PCP - General Family Medicine 01/21/18 documented as of this encounter
--- OUTSIDE RECORDS SUMMARY | 2023-06-01 05:27 | External Medical Summary | Summary of Care ---
Author Name Unknown Organization [facility] Address [address] [facility] [place] [address] Phone [phone] Care Team Providers Care Wrapping Machine Operator Name Role Phone Liborio King DO Primary Care Provider Reason for Visit * Reason Onset Date Comments Referral 02/07/2023 Neurology Encounter Details Date Type Department Care Team Description 02/07/2023 Telephone Family Practice [facility] [address] [place] [address] Liborio King DO [address] [place] [address] Referral (Neurology) Allergies No known active allergiesdocumented as of this encounter (statuses as of 02/09/2023) Medications Medication Sig Dispensed Refills Start Date [...] as of this encounter (statuses as of 02/09/2023) Active Problems Problem Noted Date Episodic tension-type headache, 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 01/08/2023 Carotid atherosclerosis, bilateral 01/08 Dyslipidemia, goal LDL below 70 01/09/20 23 Bilateral hearing loss 01/08/2023 Right hydrocele 01/08/2023 Age-related cataract of right eye 2021 Pterygium of left eye 04/24/2022 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 Tremor 04/24/2022 documented as of this encounter (statuses as of 02/09/2023) Immunizations Name Administration Dates Next Due Pneumococcal Conjugate Vacc, 13 Valent (Prevnar) 01/21/2018 Pneumococcal Conjugate Vaccine, 20-valent (Prevn ar20) 04/24/2022 Seasonal Influenza, PF, 6 mons & Above, IM , (Fl ulaval) 04/23/2018 Seasonal Influenza, Quadrivalent Hd (Fluzone Hd) [...] encounter Miscellaneous Notes * Telephone Encounter - Mckenzie Almendarez - 02/09/2023 11:00 AM EDT LM for pt to call back to see which neuro appt we should cx * Telephone Encounter - Mckenzie Almendarez - 02/07/2023 8:46 AM EDT LM for pt to call back to see which neuro appt we should cx * Telephone Encounter - FLY Freitas - 02/07/2023 8:41 AM EDT Pcp placed two referrals for the same issue with Neurology. Pt has two different appts scheduled. Please contact pt to see which one he wants. He doesn't need both. documented in this encounter Plan of Treatment Upcoming Encounters Date Type Specialty Care Team Description 04/16/2023 Office Visit Neurology Veronica Borges MD [address] [place] [address] 04/18/2023 Office Visit Family Medicine Liborio King DO [address] [facility] [place] [address] 04/30/2023 Office Visit Urology Humberto Godinez MD [address] [address] [place] [address] 06/13/2023 Office Visit Neurology Montana Cook MD [address] [place] [address] Health Maintenance Due Date Last Done Comments Zoster Vaccines (1 of 2) 1990 COVID-19 Vaccine (3 - Pfizer series) 10/20/2020 08/25/2020, 08/04/2020 Influenza Vaccine (FLU shot) (#1) [...] Documents on File Type Date Recorded Patient Cnc Supervisor Expl anation Power of Transaction Manager 05/25/2022 POWER OF A TTORNEY - HEALTH CARE Care Teams Wrapping Machine Operator Relationship Specialty Start Date End Date Liborio King DO [address] [place] [address] PCP - General Family Medicine 01/21/18 documented as of this encounter
--- OUTSIDE RECORDS SUMMARY | 2023-06-01 05:27 | External Medical Summary | Summary of Care ---
Author Name Unknown Organization [facility] Address [address] [facility] [address] Phone [phone] Care Team Providers Care Impregnation Operator Name Role Phone Liborio King DO Primary Care Provider + [phone] Reason for Referral * Evaluate & Treat - Unlimited Visits (Within 10 days (routine)) - Authorized Specialty Diagnoses / Procedures Referred By Mulugeta romero Referred To Contact Audiology Diagnoses Bilateral hearing loss, unspecified hearing loss type Liborio King DO [address] [facility] [place] [address] Referral ID Status Reason Start Date Expiration Date Visits Requested Visits Authorized [id number] Authorized Specialty Services Required 01/08/2023 999 999 Question Answer Referral Priority Within 10 days (routine) Reason for Referral: Hearing Loss Is this sudden hearing loss? No * Evaluate & Treat - Unlimited Visits (Within 10 days (routine)) - Authorized Specialty Diagnoses / Procedures Referred By Mulugeta romero Referred To Contact Neurology Diagnoses Tremor Liborio King DO [address] [facility] [place] [address] Referral ID Status Reason Start Date Expiration Date Visits Requested Visits Authorized [id number] Authorized Specialty Services Required 01/08/2023 999 999 Question Answer Referral Priority Within 10 days (routine) [facility] NEUROLOGY REFERRAL QUESTIONS Movement Does the patient's condition allow them to wait to be seen by a specialist or should they be seen by first available provider? Or is this a follow up with established provider? Specialist Comments Tremor rule out parkinsonism Reason for Visit * Reason Comments Hospital Follow-Up Pt here for a hospit al f/u from 01/01 for complaints of a headache and dizziness Encounter Details Date Type Department Care Team Description 01/08/2023 Office Visit [facility] [address] [place] [address] Liborio King DO [address] [place] [address] Episodic tension-type headache, not intractable*; Tremor; Carotid atherosclerosis, bilateral; Dyslipidemia, goal LDL below 70; Impacted cerumen of right ear; Bilateral hearing loss, unspecified hearing loss type; Right hydrocele; BPH with obstruction/lower urinary tract symptoms Allergies No known active allergiesdocumented as of this encounter (statuses as of 01/22/2023) Medications Medication Sig Dispensed Refills Start Date [...] as of this encounter (statuses as of 01/22/2023) Active Problems Problem Noted Date Episodic tension-type headache, 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 01/08/2023 Carotid atherosclerosis, bilateral 01/08 Dyslipidemia, goal LDL below 70 01/09/20 23 Bilateral hearing loss 01/08/2023 Right hydrocele 01/08/2023 Age-related cataract of right eye 2021 Pterygium of left eye 04/24/2022 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 Tremor 04/24/2022 documented as of this encounter (statuses as of 01/22/2023) Immunizations Name Administration Dates Next Due Pneumococcal [...] Date Smoking Tobacco: Never Smokeless Tobacco: Never Tobacco Cessation:Counseling Given: Not Answered Alcohol Use Standard Drinks/Week Comments No 0 [...] Sign Reading Time Taken Comments Blood Pressure 114/58 01/08/2023 11:18 AM EDT Pulse 63 01/08/2023 11:18 AM EDT Temperature 36.4 C (97.6 F) 01/08/2023 11:18 AM E DT Respiratory Rate 16 01/08/2023 11:18 AM EDT Oxygen Saturation 93% 01/08/2023 11:18 AM EDT Inhaled Oxygen Concentration - - Weight 70.9 kg (156 lb 3.2 oz) 01/08/2023 11:18 AM EDT Height 165.9 cm (5' 5.32") 01/08/2023 11:18 AM E DT Body Mass Index 25.74 01/08/2023 11:18 AM EDT documented in this encounter Progress Notes * Liborio King DO - 01/08/2023 11:52 AM EDT Images from the original note were not included. History of Present Illness Lance Neves is a 82 year old male that presents for Hospital Follow-Up (Pt here for a hospital f/u from 01/01 for complaints of a headache and dizziness ) Patient is an 82-year-old male with history of hearing loss, BPH and hydrocele of testicle. Patienttreated in the ER on 01/01/2023 for complaint of headache, dizziness and generalized weakness for 48hours prior to presentation to ER. EKG showed no acute ischemia. Chest x-ray was negative. Lab studies unremarkable. CT of head and neck negative for acute abnormalities, carotid atherosclerosis bilat eral.. Patient treated with IV fluids, a Pap and Pepcid. Patient discharged home in stable condition. Patient feels overall improved since ER discharge. Patient complains of intermittent headache andhand tremor. Patient denies blurred vision, loss of balance, muscle weakness or numbness. Patient complains of chronic hearing loss with clogged feeling right ear. Review of systems otherwise negative Physical Exam Vitals: 01/08/23 1118 Temp: 36.4 C (97.6 F) Pulse: 63 Resp: 16 SpO2: 93% BP: 114/58 BMI: 25.74 BP Readings from Last 3 Encounters: 01/08/23 114/58 11/24/22 122/62 04/24/22 116/60 Wt Readings from Last 3 Encounters: 01/08/23 70.9 kg (156 lb 3.2 oz) 11/24/22 70.5 kg (155 lb 6.4 oz) 04/24/22 70.5 kg (155 lb 6.4 oz) BMI Readings from Last 3 Encounters: 01/08/23 25.74 kg/m 11/24/22 25.61 kg/m 04/24/22 25.61 kg/m General: alert, healthy and no distress Head: Normocephalic, No masses, lesions, tenderness or abnormalities Eye Exam: PERRLA, extraocular movements intact, conjunctiva are pink and non- injected, sclera clear Ears: External ears normal, cerumen impaction right ear TM's Normal Nose: no mucosal erythema, no mucosal edema, no purulent discharge Oropharynx: no exudate, no erythema, lips, buccal mucosa, and tongue normal and mucous membranes are moist Neck: supple, no adenopathy, no bruits, thyroid normal size, non-tender, without nodularity Lymph: no palpable lymphadenopathy Heart: regular rate & rhythm, no murmur and no gallops Lungs: chest symmetric with normal AP diameter, no chest deformities noted, no chest wall tenderness, lungs clear to auscultation Pulses: carotid=2/4 w/o bruits Abdomen: abdomen soft, non-tender, normal bowel sounds and no masses or organomegaly Back: back symmetric, no curvature, no costovertebral angle tenderness, range of motion is normal Extremities: less than 2 second capillary refill, no joint deformities, effusion, or inflammation Neuro Exam: alert & oriented x 3 with fluent speech, no focal motor/sensory deficits, gait normal, reflexes normal and symmetric, and tremor Skin: skin color, texture, turgor are normal, no rashes or significant lesions I have reviewed the following results: Lyme titer, babesiosis PCR, CMP, TSH and CBC Assessment and Plan Episodic tension-type headache, not intractable Tylenol OTC as directed p.r.n. Keep calendar headaches Follow with Neurology Tremor - NEUROLOGY REFERRAL OP Carotid atherosclerosis, bilateral - Rosuvastatin Calcium 10 MG Oral Tablet (Crestor); Take 1 Tablet by mouth in the morning. - Aspirin 81 MG Oral Tablet Chewable; Take 1 Tablet by mouth in the morning. with food.. Dyslipidemia, goal LDL below 70 - Rosuvastatin Calcium 10 MG Oral Tablet (Crestor); Take 1 Tablet by mouth in the morning. - LIPID PANEL WITH DIRECT LDL IF TG IS HIGH; Future - BASIC METABOLIC PANEL; Future - HEPATIC FUNCTION PANEL; Future Impacted cerumen of right ear Ear irrigation performed right ear with success. Patient tolerated procedure well with no complications Bilateral hearing loss, unspecified hearing loss type - AUDIOLOGY REFERRAL OP Right hydrocele BPH with obstruction/lower urinary tract symptoms Follow with Urology Wrap-Up Time: I spent a total of 40-54 minutes (exact time 40 mins) on the date of service in preparation, delivery, and documentation of the care provided to Lance Neves excluding any time spent in the performance of separately billed services. documented in this encounter Plan of Treatment Upcoming Encounters Date Type Specialty Care Team Description 04/16/2023 Office Visit Neurology Veronica Borges MD [address] [place] [address] 04/18/2023 Office Visit Family Medicine Liborio King DO [address] [place] [address] 04/30/2023 Office Visit Urology Humberto Godinez MD [address] [place] [address] 06/13/2023 Office Visit Neurology Montana Cook MD [address] [place], [place] [id number] Scheduled Orders Name Type Priority Associated Diagnoses Orde r Schedule LIPID PANEL WITH DIRECT LDL IF TG IS HIGH Lab Routine Dyslipidemia, goal LDL below 70 Expected: 04/10/2023, Expires: 01/09/2024 BASIC METABOLIC PANEL Lab Routine Dyslipidemia, goal LDL below 70 Expected: 04/10/2023 (Approximate), Expires: 01/08/2024 HEPATIC FUNCTION PANEL Lab Routine Dyslipidemia, goal LDL below 70 Expected: 04/10/2023 (Approximate), Expires: 01/08/2024 REMOVAL IMPACTED CERUMEN IRRIGATION/LAVAGE, UNILAT Procedures Routine Impacted cerumen of right ear Ordered: 01/08/2023 Scheduled Referrals Name Type Priority Associated Diagnoses Orde r Schedule NEUROLOGY REFERRAL OP Referral Within 10 days (routine) Tremor Ordered: 01/08/2023 AUDIOLOGY REFERRAL OP Referral Within 10 days (routine) Bilateral hearing loss, unspecified hearing loss type Ordered: 01/08/2023 Health Maintenance Due Date Last Done Comments [...] as of this encounter Visit Diagnoses Diagnosis Episodic tension-type headache, not intractable- Primary Episodic tension type headache Tremor Abnormal involuntary movements Carotid atherosclerosis, bilateral Dyslipidemia, goal LDL below 70 Other and unspecified hyperlipidemia Impacted cerumen of right ear Impacted cerumen Bilateral hearing loss, unspecified hearing loss type Right hydrocele Hydrocele, unspecified BPH with obstruction/lower urinary tract symptoms Hypertrophy of prostate with urinary obstruction and other lower urinary tract symptoms (LUTS) documented in this encounter Advance Directives Documents on File Type Date Recorded Patient Finishing Operator Expl anation Power of Health Sciences Department Chair 05/25/2022 POWER OF A TTORNEY - HEALTH CARE Care Teams Impregnation Operator Relationship Specialty Start Date End Date Liborio King DO [address] [place] [address] PCP - General Family Medicine 01/21/18 documented as of this encounter
--- OUTSIDE RECORDS SUMMARY | 2023-06-01 05:27 | External Medical Summary | Summary of Care ---
Author Name Unknown Organization [facility] Address [address] [facility] [place] [address] Phone [phone] Care Team Providers Care Fitting Room Attendant Name Role Phone Liborio King DO Primary Care Provider Reason for Visit * Reason Onset Date Comments Referral 02/07/2023 Neurology Encounter Details Date Type Department Care Team Description 02/07/2023 Telephone Family Practice [facility] [address] [place] [address] Liborio King DO [address] [place] [address] Referral (Neurology) Allergies No known active allergiesdocumented as of this encounter (statuses as of 02/12/2023) Medications Medication Sig Dispensed Refills Start Date [...] as of this encounter (statuses as of 02/12/2023) Active Problems Problem Noted Date Episodic tension-type headache, 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 01/08/2023 Carotid atherosclerosis, bilateral 01/08 Dyslipidemia, goal LDL below 70 01/09/20 23 Bilateral hearing loss 01/08/2023 Right hydrocele 01/08/2023 Age-related cataract of right eye 2021 Pterygium of left eye 04/24/2022 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 Tremor 04/24/2022 documented as of this encounter (statuses as of 02/12/2023) Immunizations Name Administration Dates Next Due Pneumococcal [...] encounter Miscellaneous Notes * Telephone Encounter - Gabriel Fernando CPhT - 02/12/2023 4:05 PM EDT Pt's POA returning call and was transferred to specialty scheduling Thank you, Bari Fernando ([facility]) Bank Representative III [facility] ([facility] (formerly [facility]) 02/12/2023, 4:05 PM * Telephone Encounter - Mckenzie Almendarez - 02/12/2023 8:52 AM EDT Letter sent * Telephone Encounter - Mckenzie Almendarez - [...] 04/16/2023 Office Visit Neurology Veronica Borges MD [address] [place] [address], [place] [address] 04/18/2023 Office Visit Family Medicine Liborio King DO [address] [place] [address] 04/30/2023 Office Visit Urology Humberto Godinez MD [address] [place] [address] 06/13/2023 Office Visit Neurology Montana Cook MD [address] [facility] [place] [address] Health Maintenance Due Date Last Done [...] Documents on File Type Date Recorded Patient Straightening Press Operator Helper Expl anation Power of Coat Joiner Lockstitch 05/25/2022 POWER OF A TTORNEY - HEALTH CARE Care Teams Fitting Room Attendant Relationship Specialty Start Date End Date Liborio King DO [address] [place] [address] PCP - General Family Medicine 01/21/18 documented as of this encounter
--- OUTSIDE RECORDS SUMMARY | 2023-06-01 05:27 | External Medical Summary | Summary of Care ---
Author Name Unknown Organization [facility] Address [address] [place] [address] Phone [phone] Care Team Providers Care Electronics Commodity Manager Name Role Phone FernandoLiborio hassan Primary Care Provider Reason for Visit * Reason Onset Date Comments Appointment 02/20/2023 Encounter Details Date Type Department Care Team Description 02/20/2023 Telephone Care at Home [address] [place], [place] [phone] Services, Scheduling [address] [place] [address] Appointment Allergies No known active allergiesdocumented as of this encounter (statuses as of 02/20/2023) Medications Medication Sig Dispensed Refills Start Date [...] as of this encounter (statuses as of 02/20/2023) Active Problems Problem Noted Date Episodic tension-type headache, 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 01/08/2023 Carotid atherosclerosis, bilateral 01/08 Dyslipidemia, goal LDL below 70 01/09/20 Bilateral hearing loss 01/08/2023 Right hydrocele 01/08/2023 Age-related cataract of right eye 2021 Pterygium of left eye 04/24/2022 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 FLY Payton documented in this encounter Plan of Treatment Upcoming Encounters Date Type Specialty Care Team Description 04/16/2023 Office Visit Neurology Veronica Borges MD [address] [place] [address] 04/18/2023 Office Visit Family Medicine Liborio King DO [address] [place] [address] 04/30/2023 Office Visit Urology Humberto Godinez MD [address] [facility] [place] [address] 06/13/2023 Office Visit Neurology Montana Cook MD [address] [place] [address] Health Maintenance Due Date Last Done Comments [...] Documents on File Type Date Recorded Patient Contract Serviceman Expl anation Power of Factory Hand 05/25/2022 POWER OF A TTORNEY - HEALTH CARE Care Teams Electronics Commodity Manager Relationship Specialty Start Date End Date Liborio King DO [address] [place] [address] PCP - General Family Medicine 01/21/18 documented as of this encounter
--- OUTSIDE RECORDS SUMMARY | 2023-06-01 05:27 | External Medical Summary | Summary of Care ---
Author Name Unknown Organization [facility] Address [address] [facility] [place] [address] Phone [phone] Care Team Providers Care Cable Testers Helper Name Role Phone Liborio King DO Primary Care Provider Reason for Visit * Reason Onset Date Comments Referral 02/07/2023 Neurology Encounter Details Date Type Department Care Team Description 02/07/2023 Telephone Family Practice [facility] [address] [place] [address] Liborio King DO [address] [place] [address] Referral (Neurology) Allergies No known active allergiesdocumented [...] Letter sent * Telephone Encounter - Mckenzie E Erickson - 02/09/2023 11:00 AM EDT LM for [...] Office Visit Neurology Veronica Borges MD [address] [place] [address] 04/18/2023 Office Visit Family Medicine Liborio King, [address] [facility] [place] [address] 04/30/2023 Office Visit Urology Humberto Godinez MD [address] [place] [address] 06/13/2023 Office Visit Neurology Montana Cook MD [address] [place] [address] Health Maintenance Due Date Last Done Comments [...] Documents on File Type Date Recorded Patient Mold Mover Expl anation Power of Flight Test Engineer 05/25/2022 POWER OF A TTORNEY - HEALTH CARE Care Teams Cable Testers Helper Relationship Specialty Start Date End Date Liborio King DO [address] [place] [address] PCP - General Family Medicine 01/21/18 documented as of this encounter
--- OUTSIDE RECORDS SUMMARY | 2023-06-01 05:27 | External Medical Summary | Summary of Care ---
Author Name Unknown Organization [facility] Address [address] [place] [address] Phone [phone] Care Team Providers Care Director Gift Name Role Phone FernandoLiborio hassan Primary Care Provider [phone] Reason for Visit * Reason Onset Date Comments Appointment 02/20/2023 Encounter Details Date Type Department Care Team Description 02/20/2023 Telephone Care at Home [address] [place], [place] [phone] Services, Scheduling [address] [place] [address] Appointment Allergies No known active allergiesdocumented as of this encounter (statuses as of 02/27/2023) Medications Medication Sig Dispensed Refills Start Date [...] as of this encounter (statuses as of 02/27/2023) Active Problems Problem Noted Date Episodic tension-type headache, 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 I'm unsure how to schedule for Ms. Zamudio? Will xfer to number listed below. * Telephone Encounter - FLY Payton - 02/20/2023 11:17 AM EDT Care At Home Outreach Call attempt: 1st Call Call result: Call Unsuccessful - Left a voice mail Looking to schedule patient for AWV with Pat Zamudio PA-C Can offer: 02/21/23 or 02/28/23 Provided a call back number of [phone]. FLY Payton documented in this encounter Plan of Treatment Upcoming Encounters Date Type Specialty Care Team Description 04/16/2023 Office Visit Neurology Veronica Borges MD [address] [place] [address] 04/18/2023 Office Visit Family Medicine Liborio King DO [address] [facility] [place] [address] 04/30/2023 Office Visit Urology Humberto Godinez MD [address] [facility] [address] [place] [address] 06/13/2023 Office Visit Neurology Montana Cook MD [address] [place] [address] Health Maintenance Due Date Last [...] Documents on File Type Date Recorded Patient Design/Animation Instructor Expl anation Power of Reclamation Kettle Tender 05/25/2022 POWER OF A TTORNEY - HEALTH CARE Care Teams Director Gift Relationship Specialty Start Date End Date Liborio King DO [address] [place] [address] PCP - General Family Medicine 01/21/18 documented as of this encounter
--- OUTSIDE RECORDS SUMMARY | 2023-06-01 05:27 | External Medical Summary | Summary of Care ---
Author Name Unknown Organization [facility] Address [address] [facility] [place] [address] Phone [phone] Care Team Providers Care Leather Goods Assembler Name Role Phone Liborio King DO Primary Care Provider Reason for Visit * Reason Onset Date Comments Referral 02/07/2023 Neurology Encounter Details Date Type Department Care Team Description 02/07/2023 Telephone Family Practice [facility] [address] [place] [address] Liborio King DO [address] [place] [address] Referral (Neurology) Allergies No known active allergiesdocumented as of this encounter (statuses as of 02/07/2023) Medications Medication Sig Dispensed Refills Start Date [...] as of this encounter (statuses as of 02/07/2023) Active Problems Problem Noted Date Episodic tension-type headache, 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 01/08/2023 Carotid atherosclerosis, bilateral 01/08 Dyslipidemia, goal LDL below 70 01/09/20 23 Bilateral hearing loss 01/08/2023 Right hydrocele 01/08/2023 Age-related cataract of right eye 2021 Pterygium of left eye 04/24/2022 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 Tremor 04/24/2022 documented as of this encounter (statuses as of 02/07/2023) Immunizations Name Administration Dates Next Due Pneumococcal [...] Office Visit Neurology Veronica Borges MD [address] [place] [address] 04/18/2023 Office Visit Family Medicine Liborio King DO [address] [facility] [place] [address] 04/30/2023 Office Visit Urology Humberto Godinez MD [address] [place] [address] 06/13/2023 Office Visit Neurology Montana Cook MD [address] [place], [place] [phone] Health Maintenance Due Date Last Done Comments [...] Documents on File Type Date Recorded Patient Interior Plant Caretaker Expl anation Power of Infrastructure Manager 05/25/2022 POWER OF A TTORNEY - HEALTH CARE Care Teams Leather Goods Assembler Relationship Specialty Start Date End Date Liborio King DO [address] [place] [address] PCP - General Family Medicine 01/21/18 documented as of this encounter
--- OUTSIDE RECORDS SUMMARY | 2023-06-01 05:27 | External Medical Summary ---
Author Name Unknown Address Unknown Organization K01:[facility] - [address] [place] [address] Laboratory Report Ordering Provider Test Date Status JULITA MCFADDEN 04/16/2023 11:35:55 Final Observation Date Value Abnormality Reference (Units ) Status Triglyceride 04/16/2023 11:35:55 125 <=174 ( mg/dL) Final Triglyceride Reference Range s (mg/dL):
<150 Acceptable
150-174 Borderline high
175-499 High
>=500 Very high Cholesterol 04/16/2023 11:35:55 134 <200 (mg /dL) Final Total Cholesterol Reference Ranges (mg/dL):
<200 Desirable
200-239 Borderline high
>=240 High HDL 04/16/2023 11:35:55 48 >39 (mg/dL ) Final HDL Cholesterol Reference Ra nges (mg/dL):
>=60 High (Desirable)
<50 Low (Undesirable) For Females
<40 Low (Undesirable) For Males NON-HDL CHOLESTEROL 04/16/2023 11:35:55 86 <=159 (mg/dL) Final Non-HDL Cholesterol Referenc e Range (mg/dL):
<100 Target level for high risk ASCVD patient
<130 Optimal for general population
130-159 Near optimal for general population
160-189 Borderline High
190-219 High
>=220 Very High LDL, (calculated) 04/16/2023 11:35:55 61 <= 129 (mg/dL) Final LDL Cholesterol Reference Ra nges (mg/dL):
<70 Target level for high risk ASCVD patient
<100 Optimal for general population
100-129 Near optimal for general population
130-159 Borderline high
160-189 High
>=190 Very high Performing Location LAB[facility]ATORY [facility] - [address] [facility] [address]
--- OUTSIDE RECORDS SUMMARY | 2023-06-01 05:27 | External Medical Summary | Summary of Care ---
Author Name Unknown Organization [facility] Address [address] [place] [address] Phone [phone] Care Team Providers Care Production Administrator Name Role Phone FernandoLiborio hassan Primary Care Provider [phone] Reason for Visit * Reason Onset Date Comments Appointment 02/20/2023 Encounter Details Date Type Department Care Team Description 02/20/2023 Telephone Care at Home [address] [place], [place] [id number] Services, Scheduling [address] [place] [address] Appointment Allergies No known active allergiesdocumented as [...] encounter Miscellaneous Notes * Telephone Encounter - Pat Don [facility] Poultry Farm Manager - 02/27/2023 2:00 PM EDT Care At Home Outreach Call attempt: 3rd Call Call result: Call Successful - Patient enrolled and agreed to visit. Appointment with: Pat Zamudio PA-C Visit Date: 05/01/23 Visit Time: 3:30 pm FLY Pena Electronically signed by Pat Don, [facility] Health Poultry Farm Manager at 02/27/2023 2:01 PM EDT * Telephone Encounter - FLY Velazquez - [...] 02/28/23 Provided a call back number of [phone]. FLY Payton documented in this encounter Plan of Treatment Upcoming Encounters Date Type Specialty Care Team Description 04/16/2023 Office Visit Neurology Veronica Bogres MD [address] [place] [address] 04/18/2023 Office Visit Family Medicine Liborio King, [address] [facility] [place] [address] 04/30/2023 Office Visit Urology Humberto Godinez MD 27 [facility] [address] [place] [address] 05/01/2023 Home Visit Family Medicine Pat Zamudio PA-C [address] [place] [address] 06/13/2023 Office Visit Neurology Montana Cook MD [address] [place] [facility] [place] [address] Health Maintenance Due Date Last Done Comments [...] Documents on File Type Date Recorded Patient Distributor Operator Expl anation Power of Truck Assembler 05/25/2022 POWER OF A TTORNEY - HEALTH CARE Care Teams Production Administrator Relationship Specialty Start Date End Date Liborio King DO [address] [place] [address] PCP - General Family Medicine 01/21/18 documented as of this encounter
--- OUTSIDE RECORDS SUMMARY | 2023-06-01 05:28 | External Medical Summary | Summary of Care ---
Author Name Unknown Organization [facility] Address [address] [facility] [place] [address] Phone [phone] Care Team Providers Care Architecture Consultant Name Role Phone Liborio King DO Primary Care Provider Reason for Visit * Reason Onset Date Comments Test Results 01/02/2023 Advice 01/02/2023 Encounter Details Date Type Department Care Team Description 01/02/2023 Telephone Family Practice [facility] [address] [place] [address] Liborio King DO [address] [place] [address] Test Results; Advice Allergies No known active allergiesdocumented as of this encounter (statuses as of 01/04/2023) Medications Medication Sig Dispensed Refills Start Date [...] as of this encounter (statuses as of 01/04/2023) Active Problems Problem Noted Date Age-related cataract of right eye 2021 Pterygium of left eye 04/24/2022 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 * Telephone Encounter - FLY Byrd - 01/04/2023 2:52 PM EDT lmom to return call. * Telephone Encounter - Barbara Dugan LPN - 01/04/2023 1:55 PM EDT Patient is established with [facility] urology. He is currently scheduled for 1st new patient opening at [facility] in April. If pt wishes to have a sooner appt, he should contact his current urologist. Patient can be added to wait list in case of sooner opening with [facility]. * Telephone Encounter - Hyacinth Montague - 01/03/2023 2:57 PM EDT Please see message below- * Telephone Encounter - Liborio King DO - 01/03/2023 2:49 PM EDT Please assist with scheduling possible sooner appointment with urology for further evaluation and treatment of symptomatic large hydrocele. Attempt to call patient and daughter unsuccessful. * Telephone Encounter - Mao Gonzalez RN - 01/03/2023 1:26 PM EDT Called, left message for patient to return call to nurse call center. Please see previous messages. No consent/POA for daughter Candelaria in patient's chart. Please inform patient of Dr. King's previous message. FYI to PCP. * Telephone Encounter - Liborio King DO - 01/02/2023 3:35 PM EDT Ultrasound shows large hydrocele right testicle, bilateral epididymal cyst,. Advise follow with Urology. * Telephone Encounter - FLY Lazo - 01/02/2023 3:18 PM EDT Reason for patient's call: pt daughter Candelaria said she is calling for test results addendum / call was not transferred * Telephone Encounter - Lina Olivas LPN - 01/02/2023 3:06 PM EDT Please review and advise on US results from November * Telephone Encounter - FLY Rodriguez - 01/02/2023 3:00 PM EDT Who is Requesting Test Results: Pt daughter Primary Care Provider : Liborio King DO Tests Results Requested : US Date of Test : 12/05/2022 Location of Test: [facility] Ordering Provider: Dr King Callback Number: [phone] Patient has been made aware that the turnaround time for test results are typically as follows: Laboratory results = within 2 days Urine Cultures = within 2-3 days depending on growth within the culture Pathology results (biopsy results/PAP) = 1-2 weeks Radiology results = within 1 week Cologuard results = within 2 weeks from the shipment date COVID testing = results are on average 7 days documented in this encounter Plan of Treatment Upcoming Encounters Date Type Specialty Care Team Description 01/08/2023 Office Visit Family Medicine Liborio King DO [address] [facility] [place] [address] 04/16/2023 Office Visit Neurology Veronica Borges MD 200 [place] [address] 04/30/2023 Office Visit Urology Humberto Godinez MD 27 [facility] [address] [place] [address] Health Maintenance Due Date Last Done Comments [...] Documents on File Type Date Recorded Patient Automat Car Attendant Expl anation Power of Poultry Farmer Egg 05/25/2022 POWER OF A TTORNEY - HEALTH CARE Care Teams Architecture Consultant Relationship Specialty Start Date End Date Liborio King DO [address] [place] [address] PCP - General Family Medicine 01/21/18 documented as of this encounter
--- OUTSIDE RECORDS SUMMARY | 2023-06-01 05:28 | External Medical Summary | Summary of Care ---
Author Name Unknown Organization [facility] Address [address] [facility] [place] [address] Phone [phone] Care Team Providers Care Lead Teacher Name Role Phone Liborio King DO Primary Care Provider [phone] Reason for Visit * Reason Onset Date Comments Test Results 01/02/2023 Advice 01/02/2023 Encounter Details Date Type Department Care Team Description 01/02/2023 Telephone Family Practice [facility] [address] [place] [address] Liborio King DO [address] [place] [address] Test Results; Advice Allergies No known active allergiesdocumented as of this encounter (statuses as of 01/05/2023) Medications Medication Sig Dispensed Refills Start Date [...] as of this encounter (statuses as of 01/05/2023) Active Problems Problem Noted Date Age-related cataract of right eye 2021 Pterygium of left eye 04/24/2022 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 Please call at [phone] * Telephone Encounter - FLY Byrd - 01/04/2023 3:51 PM EDT Scheduled on 04/30/2023. * Telephone Encounter - FLY Byrd - 01/04/2023 2:52 PM EDT lmom to return call. * Telephone Encounter - Barbara Dugan LPN - 01/04/2023 1:55 PM EDT Patient is established with [facility] [place] u[place]. He is currently scheduled for 1st new patient opening at [facility] in April. If pt wishes to have a sooner appt, he should contact his current urologist. Patient can be added to wait list in case of sooner opening with [facility]. * Telephone Encounter - Hyacinth Montague - [...] of Test : 12/05/2022 Location of Test: [facility] Ordering Provider: Dr King Callback Number: [phone] Patient has been made aware that the [...] Medicine Liborio King DO [address] [place] [address] 04/16/2023 Office Visit [facility] [address] 04/30/2023 Office Visit Urology Humberto Godinez MD [address] [place] [address] [place] [address] Health Maintenance Due Date Last Done Comments [...] Documents on File Type Date Recorded Patient Cartoonist Special Effects Expl anation Power of Loan Administrator 05/25/2022 POWER OF A TTORNEY - HEALTH CARE Care Teams Lead Teacher Relationship Specialty Start Date End Date Liborio King DO [address] [place] [address] PCP - General Family Medicine 01/21/18 documented as of this encounter
--- OUTSIDE RECORDS SUMMARY | 2023-06-01 05:28 | External Medical Summary | Summary of Care ---
Author Name Unknown Organization [facility] Address [address] [facility] [place] [address] Phone [phone] Care Team Providers Care Parasitologist Name Role Phone Liborio Livingston DO Primary Care Provider Reason for Visit * Reason Onset Date Comments Test Results 01/02/2023 Advice 01/02/2023 Encounter Details Date Type Department Care Team Description 01/02/2023 Telephone Family Practice [facility] [address] [place] [address] Liborio Livingston DO [address] [place] [address] Test Results; Advice Allergies No known active [...] 1:55 PM EDT Patient is established with [facility] urology. He is currently scheduled for 1st new patient opening at [facility] in April. If pt wishes to have a sooner appt, he should contact his current urologist. Patient can be added to wait list in case of sooner opening with [facility]. * Telephone Encounter - Hyacinth Montague - 01/03/2023 2:57 PM EDT Please see message below- * Telephone Encounter - Liborio Livingston DO - 01/03/2023 2:49 PM EDT Please [...] patient's chart. Please inform patient of Dr. Livingston's previous message. FYI to PCP. * Telephone Encounter - Liborio Livingston DO - 01/02/2023 3:35 PM EDT Ultrasound [...] Pt daughter Primary Care Provider : Liborio Livingston DO Tests Results Requested : US Date of Test : 12/05/2022 Location of Test: [facility] Ordering Provider: Dr Livingston Callback Number: [phone] Patient has been made aware that the [...] Description 01/08/2023 Office Visit Family Medicine Liborio Livingston DO [address] [place] [address] 04/16/2023 Office Visit Neurology Veronica Borges MD 200 [place] [address] 05/08/2023 Office Visit Urology Humberto Godinez MD [address] [place] [address] [place] [address] Health Maintenance Due Date Last Done Comments [...] Documents on File Type Date Recorded Patient Accounts Payable Associate Expl anation Power of Leisure Studies Professor 05/25/2022 POWER OF A TTORNEY - HEALTH CARE Care Teams Parasitologist Relationship Specialty Start Date End Date Liborio Livingston DO [address] [place] [address] PCP - General Family Medicine 01/21/18 documented as of this encounter
--- OUTSIDE RECORDS SUMMARY | 2023-06-01 05:28 | External Medical Summary | Summary of Care ---
Author Name Unknown Organization [facility] Address [address] [facility] [place] [address] Phone [phone] Care Team Providers Care Windows Mobile Developer Name Role Phone Liborio King DO Primary Care Provider [phone] Reason for Visit * Reason Onset Date Comments Emergency Department Follow-Up 01/02/2023 Appointment 01/02/2023 ER f/u appt Encounter Details Date Type Department Care Team Description 01/02/2023 Telephone Family Practice [facility] [address] [place] [address] Liborio King DO [address] [place] [address] Emergency Department Follow-Up; Appointmen... 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 Unable to schedule appt. Please call Kathy at [phone] until 5pm. * Telephone Encounter - Hyacinth Montague - 01/02/2023 3:31 PM EDT LM for patient to call back and schedule er/hospital discharge visit. * Telephone Encounter - FLY Lazo - 01/02/2023 3:15 PM EDT Pt daughter Candelaria said the call got disconnected / pt needs an appt Pt was at [facility] ER on 01-01-23 for bad headache, and dizziness Candelaria said she has a POA / adv can not find POA and adv to bring a copy into the office * Telephone Encounter - FLY Rodriguez - 01/02/2023 3:04 PM EDT Patient needs ED Follow-up. If New Patient - Were surrounding clinics offered? N/A Please see call details. documented in this encounter Plan of Treatment Upcoming Encounters Date Type Specialty Care Team Description 01/08/2023 Office Visit Family Medicine Liborio King DO [address] [facility] [place] [address] 04/16/2023 Office Visit Neurology Veronica Borges MD 200 [facility], [place] [address] 05/08/2023 Office Visit Urology Humberto Godinez MD 27 [facility] [address] [place] [address] Health Maintenance Due Date Last Done Comments [...] Not on filedocumented as of this encounter Care Teams Windows Mobile Developer Relationship Specialty Start Date End Date Liborio King DO [address] [place] [address] PCP - General Family Medicine 01/21/18 documented as of this encounter
--- OUTSIDE RECORDS SUMMARY | 2023-06-01 05:28 | External Medical Summary | Summary of Care ---
Author Name Unknown Organization [facility] Address [address] [facility] [place] [address] Phone [phone] Care Team Providers Care Accreditation Manager Name Role Phone Liborio King DO Primary Care Provider [phone] Reason for Visit * Reason Onset Date Comments Emergency Department Follow-Up 01/02/2023 Appointment 01/02/2023 ER f/u appt Encounter Details Date Type Department Care Team Description 01/02/2023 Telephone Family Practice [facility] [address] [place] [address] Liborio King DO [address] [place] [address] Emergency Department Follow-Up; Appointmen... Allergies No known [...] to schedule appt. Please call Kathy at [phone] until 5pm. * Telephone Encounter - Hyacinth Montague - 01/02/2023 3:31 PM EDT LM for patient to call back and schedule er/hospital discharge visit. * Telephone Encounter - FLY Lazo - 01/02/2023 3:15 PM EDT Pt daughter Candelaria said the call got disconnected / pt needs an appt Pt was at [facility] ER on 01-01-23 for bad headache, and [...] Medicine Liborio King DO [address] [place] [address] 04/16/2023 Office Visit Neurology Veronica Borges MD 200 [facility] [place] [address] 04/30/2023 Office Visit Urology Humberto Godinez MD 27 [facility] [address] [place] [address] Health Maintenance [...] Documents on File Type Date Recorded Patient Mgmt Consultant Expl anation Power of Retail Service Technician 05/25/2022 POWER OF A TTORNEY - HEALTH CARE Care Teams Accreditation Manager Relationship Specialty Start Date End Date Liborio King DO [address] [place] [address] PCP - General Family Medicine 01/21/18 documented as of this encounter
--- OUTSIDE RECORDS SUMMARY | 2023-06-01 05:28 | External Medical Summary | Summary of Care ---
Author Name Unknown Organization [facility] Address [address] [facility] [place] [address] Phone [phone] Care Team Providers Care Long Distance Operator Name Role Phone Liborio King DO Primary Care Provider Encounter Details Date Type Department Care Team Description 01/09/2023 Orders Only Family Practice [facility] [address] [place] [address] Liborio King DO [address] [place] [address] Allergies No known active allergiesdocumented as of [...] Visit Neurology Veronica Borges MD [address] [place] [address] 04/18/2023 Office Visit Family Medicine Liborio King, [address] [place] [address] 04/30/2023 Office Visit Urology Humberto Godinez MD [address] [place] [address] [place] [address] 06/13/2023 Office Visit Neurology Montana Cook MD [address] [place] [address] Health Maintenance Due Date Last [...] Procedure Name Priority Date/Time Associated Diagnosis Comments XR CHEST 1 VIEW Routine 01/01/2023 documented in this encounter Results * XR CHEST 1 VIEW (01/01/2023) Anatomical Region Laterality Modality Chest Other 01/01/2023 Sebastian Solorzano MD RADIOLOGY (RAD GENER AL) documented in this encounter Advance Directives Documents on File Type Date Recorded Patient Director Of Infection Control Expl anation Power of Hide Shaker 05/25/2022 POWER OF A TTORNEY - HEALTH CARE Care Teams Long Distance Operator Relationship Specialty Start Date End Date Liborio King DO [address] [place] [address] PCP - General Family Medicine 01/21/18 documented as of this encounter
--- OUTSIDE RECORDS SUMMARY | 2023-06-01 05:28 | External Medical Summary | Summary of Care ---
Author Name Unknown Organization [facility] Address [address] [facility] [place] [address] Phone [phone] Care Team Providers Care Controls Designer Name Role Phone Liborio King DO Primary Care Provider + [phone] Reason for Referral * Evaluate & Treat - Unlimited Visits (Within 10 days (routine)) - Authorized Specialty Diagnoses / Procedures Referred By Mulugeta romero Referred To Contact Urology Diagnoses BPH with obstruction/lower urinary tract symptoms Hydrocele, right Liborio King DO [address] [place] [address] Referral ID Status Reason Start Date Expiration Date Visits Requested Visits Authorized [id number] Authorized Specialty Services Required 11/24/2022 999 999 Question Answer Referral Priority Within 10 days (routine) What is the patient being referred for? Other conditions * Evaluate & Treat - Unlimited Visits (Within 10 days (routine)) - Authorized Specialty Diagnoses / Procedures Referred By Mulugeta romero Referred To Contact Neurology Diagnoses Tremor of right hand Liborio King DO [address] [facility] [place] [address] Referral ID Status Reason Start Date Expiration Date Visits Requested Visits Authorized [id number] Authorized Specialty Services Required 11/24/2022 999 999 Question Answer Referral Priority Within 10 days (routine) [facility] NEUROLOGY REFERRAL QUESTIONS Movement Does the patient's condition allow them to wait to be seen by a specialist or should they be seen by first available provider? Or is this a follow up with established provider? First Available Reason for Visit * Reason Comments Re-Check Routine check up - p atient accompanied by daughter Candelaria Other Discuss urinary leak age Encounter Details Date Type Department Care Team Description 11/24/2022 [address] [facility] [address] [place] [address] Fernando Liborio [address] [place] [address] Hydrocele, right*; BPH with obstruction/lower urinary tract symptoms; Tremor of right hand; Need for vypfzbfmfr-pqlumtj-zlo tussis (Tdap) vaccine; Risk and functional assessment Allergies No known active allergiesdocumented as of this encounter (statuses as of 12/08/2022) Medications Medication Sig Dispensed Refills Start Date End Date Status zoster vac recomb adjuvanted (SHINGRIX) 50 MCG/0.5ML injectionIndicat ions:Need for vaccination for zoster Inject 0.5 mL into a large muscle now and repeat dose in 60 to 180 days 1 Each 1 08/26/2019 Active Additional Information Patient not taking.Reported on 11/24/2022 Finasteride 5 MG Oral Tablet (Proscar)Indicat ions:BPH with obstruction/lowe r urinary tract symptoms Take by mouth 1 Tablet in the morning. 90 Tablet 3 04/24/2022 Active Tamsulosin HCl 0.4 MG Oral Capsule (Flomax)Indicati ons:BPH with obstruction/lowe r urinary tract symptoms Take by mouth 1 Capsule in the morning. 90 Capsule 3 04/24/2022 Active Dwtrmep-Ppatrd-M cell Pertussis 5-2.5-18.5 LF-MCG/0.5 Suspension Prefilled Syringe (Boostrix)Indica tions:Need for diphtheria-tetan us-pertussis (Tdap) vaccine Inject 0.5 mL into a large muscle once for 1 dose. 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 2021 Pterygium of left eye 04/24/2022 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 Resting tremor 04/24/2022 documented as of this encounter (statuses as of 12/08/2022) Immunizations Name Administration Dates Next Due Pneumococcal [...] Sign Reading Time Taken Comments Blood Pressure 122/62 11/24/2022 9:14 AM EDT Pulse 60 11/24/2022 9:14 AM EDT Temperature 36 C (96.8 F) 11/24/2022 9:14 AM EDT Respiratory Rate 20 11/24/2022 9:14 AM EDT Oxygen Saturation - - Inhaled Oxygen Concentration - - Weight 70.5 kg (155 lb 6.4 oz) 11/24/2022 9:14 A M EDT Height - - Body Mass Index 25.61 04/24/2022 8:01 AM EDT documented in this encounter Patient Instructions * Patient Instructions* Mao Gonzalez RN - 11/24/2022 9:13 AM EDT Patient Instructions - Fall Prevention (This education is for all patients over 65 regardless of symptoms) Remember to take your current medications as prescribed. In order to prevent falls, you are encouraged to: Exercise Utilize assistive/adaptive devices Avoid multifocal lenses when walking Avoid hazards in home Maintain a regular toileting schedule Any questions please contact our office. Preventing Falls in the Home (This education is for all patients over 65 regardless of symptoms) As you get older, falls are more likely. Thats because your reaction time slows. Your muscles and joints may also get stiffer, making them less flexible. Illness, medications, and vision changes can also affect your balance. A fall could leave you unable to live on your own. To make your home safer, follow these tips: Floors Put nonskid pads under area rugs Remove throw rugs Replace worn floor coverings Tack carpets firmly to each step on carpeted stairs. Put nonskid strips on the edges of uncarpeted stairs Keep floors and stairs free of clutter and cords Arrange furniture so there are clear pathways Clean up any spills right away Bathrooms Install grab bars in the tub or shower Apply nonskid strips or put a nonskid rubber mat in the tub or shower Sit on a bath chair to bathe Use bathmats with nonskid backing Lighting Keep a flashlight in each room Put a nightlight along the pathway between the bedroom and the bathroom Tisha Patient Education Copyright 2008 - 2010 Tisha except where otherwise noted Preventing Falls: Exercises to Improve Balance, Flexibility, Strength, and Staying Power (This education is for all patients over 65 regardless of symptoms) Certain types of exercises may help make you less likely to fall. Try the ones below. Or do other exercises that your healthcare provider suggests. Depending on your health, you may need to start slowly. Dont let that stop you. Even small amounts of exercise can help you. Be sure to talk to yourhealthcare provider before starting any exercise program. Improve Balance Many types of exercise can help improve balance. Rohith chi and yoga are good examples. Heres another one to try. You can do it anytime and almost anywhere. Stand next to a counter or solid support. Push yourself up onto your tiptoes. Hold for 5 seconds. If you start to lose your balance, hold on to the counter. Rest and repeat 5 times. Work up to holding for 20 to 30 seconds, if you can. Increase Flexibility Being more flexible makes it easier for you to move around safely. Try exercises like the seated hamstring stretch. Sit in a chair and put one foot on a stool. Straighten your leg and reach with both hands down either side of your leg. Reach as far down your leg as you can. Hold for about 20 seconds. Go back to the starting position. Then repeat 5 times. Switch legs. Build Strength Resistance exercises help build strength. You can do them without equipment. Or you can use weights, elastic bands, or special machines. One such exercise is called the biceps curl. You can hold a 1 pound weight or even a can of soup. Do this exercise at least 3 times a week. Strive for everyday. Sit up straight in a chair. Keep your elbow close to your body and your wrist straight. Bend your arm, moving your hand up to your shoulder. Then slowly lower your arm. Repeat 5 times. Switch to the other arm. Build Your Staying Power Aerobic exercises make your heart and lungs stronger so you can keep moving longer. Walking and swimming are two of the best types of exercises you can do. Using a stationary bike is great, too. Find an aerobic exercise that you enjoy. Start slowly and build up. Even 5 minutes is helpful. Aimfor a goal of 30 minutes, at least 3 times a week. You dont have to do 30 minutes in one session. Break it up and walk a little throughout the day. More Helpful Tips Start easy. Slowly work up to doing more. Talk with your healthcare provider about the best exercises for you. Call senior centers or health clubs about exercise programs. If needed, have a family member watch you walk every so often to check your stability. Exercise with a friend. Choose an activity you both enjoy. Try exercises that you can do anytime, anywhere. Here are two examples. Have someone with you when you first try these: Practice walking by placing one foot right in front of the other. Stand up and sit down 10 times. Repeat this throughout the day. Tisha Patient Education Copyright 2009 - 2010 Tisha except where otherwise noted. Preventing Falls: Moving Safely Using a Cane or Walker (This education is for all patients over 65 regardless of symptoms) Keep the cane away from your feet so you dont trip. A walking aid, such as a cane or walker, can help you stay more independent and avoid falls. Remember to keep your walking aid within easy reach when youre in a chair or in bed. And learn how to use it safely so you dont injure yourself. Using a Cane If you have a stronger side, hold the cane on that side. 17. Get your balance. 18. Move the cane and your weaker leg forward. 19. Support your weight on both the cane and your weaker side. 20. Step with your stronger leg. 21. Start again from step 1. If youre using a folding walker, be sure you know how to lock it open. Check that its locked open before each use. Using a Walker 7. Roll the walker (or lift it, if youre using one without wheels) forward about 12 inches. 8. Step forward with your weaker leg first. 9. Use the walker to help keep your balance. 10. Bring your other foot forward to the center of the walker. 11. Start again from step 1. Helpful Tips Check with your healthcare provider about the right walking aid to use. Ask about a walker with a seat attached. Check the tips of your cane or walker to make sure they have nonskid covers. Move slowly from room to room. Dont ko. Sit down to get dressed. Use a eric pack or backpack to keep your hands free. Get help for jobs that mean climbing, even on a stepstool. Tisha Patient Education Copyright 2009 - 2010 Tisha except where otherwise noted. Treating Urinary Incontinence in Men (This education is for all patients over 65 regardless of symptoms) You can't always control the release of urine. You may leak urine. Or you may not be able to hold your urine until you can get to a bathroom. This is called urinary incontinence. The problem can be managed. Talk to your doctor about your treatment options. Taking Medications Prescription medications may help you. They may: Help the sphincter to work better. (This is the muscle that closes to keep urine from leaking out of the bladder.) Help stop the bladder from andrés too often to push urine out. Help the bladder muscles contract with more force. Help relax the sphincter muscle and allow urine to flow more freely. Making Changes to Your Routine Certain changes in your daily routine may help. These include: Avoiding caffeine and alcohol. Using timed voiding. This is following a schedule for drinking fluids and urinating. Doing Kegel exercises daily. These exercises involve tightening the muscles in your sphincter and around your bladder to help strengthen them. Your doctor can explain how to do them. Using a Catheter A catheter is a narrow tube that is inserted through the urethra into the bladder. It drains urine.A condom catheter covers the penis. It channels urine into a collection bag. It is worn most of thetime. Intermittent catheterization means inserting a catheter to drain the bladder, then removing it. This is done on a regular schedule. Having Surgery If other options don't work, surgery may be recommended. If surgery is an option, your healthcare provider can discuss it with you and explain its risks and benefits. Healing After Prostate Surgery Surgery on the prostate gland can cause incontinence. Most often, the incontinence is only for a short time. It clears up when healing is complete. Very rarely, prostate surgery can result in permanent incontinence. documented in this encounter Progress Notes * Liborio King DO - 11/24/2022 9:44 AM EDT Images from the original note were not included. History of Present Illness Lance Neves is a 82 year old male that presents for Re-Check (Routine check up - patient accompanied by daughter Candelaria) and Other (Discuss urinary leakage) Patient is an 82-year-old male here with daughter in attendance. Patient complains of swollen testicle with urinary frequency and incontinence. Patient denies dysuria or hematuria. Patient complains of chronic tremor right-hand. Patient denies muscle weakness or numbness.Patient denies fatigue fever chills or sweats. Patient denies nasal congestion sore throat or earache. Patient denies cough or sputum. Patient denies chest pain shortness breath palpitations or edema. Patient denies abdominal pain nausea vomiting diarrhea constipation. Patient denies neck or back pain, joint pain or swelling.Patient denies headache dizziness Patient denies skin rash or lesions. Review systems otherwise negative Physical Exam Vitals: 11/24/22 0914 Temp: 36 C (96.8 F) Pulse: 60 Resp: 20 BP: 122/62 BP Readings from Last 3 Encounters: 11/24/22 122/62 04/24/22 116/60 08/26/19 132/60 Wt Readings from Last 3 Encounters: 11/24/22 70.5 kg (155 lb 6.4 oz) 04/24/22 70.5 kg (155 lb 6.4 oz) 08/26/19 74.5 kg (164 lb 4 oz) BMI Readings from Last 3 Encounters: 11/24/22 25.61 kg/m 04/24/22 25.61 kg/m 08/26/19 26.51 kg/m General: alert, healthy and no distress Head: Normocephalic, No masses, lesions, tenderness or abnormalities Eye Exam: PERRLA, extraocular movements intact, conjunctiva are pink and non- injected, sclera clear Ears: External ears normal, Canals clear, TM's Normal Nose: no mucosal erythema, no [...] deficits, gait normal, reflexes normal and symmetric, resting tremor right-hand Exam (Male): normal circumcised penis, no hernia detected, large hydrocele right testicle Skin: skin color, texture, turgor are normal, no rashes or significant lesions I have reviewed the following results: None Assessment and Plan Hydrocele, right - US SCROTUM/TESTES; Future - UROLOGY REFERRAL OP BPH with obstruction/lower urinary tract symptoms - PSA; Future - COMPREHENSIVE METABOLIC PANEL; Future - UROLOGY REFERRAL OP - URINALYSIS WITH MICROSCOPIC EXAM; Future - URINALYSIS WITH MICROSCOPIC EXAM Tremor of right hand - NEUROLOGY REFERRAL OP - CBC WITH WBC DIFFERENTIAL; Future - COMPREHENSIVE METABOLIC PANEL; Future - TSH WITH FREE T4 IF INDICATED; Future Need for jfmmsjkyev-ufnzyfl-nkbrkpohn (Tdap) vaccine Tdap Risk and functional assessment Wrap-Up Time: I spent a total of 40-54 minutes (exact time 40 mins) on the date of service in preparation, delivery, and documentation of the care provided to Lance Neves excluding any time spent in the performance of separately billed services. * Mao Gonzalez RN - 11/24/2022 9:13 AM EDT Urinary Incontinence Plan of Care Documentation: (This education is for all patients over 65 regardless of symptoms) Current medications reconciled. Patient encouraged to: Practice kegal exercises Provide education materials Use the restroom every 2 hours throughout the day Limit caffeine, alcohol, spicy foods and acidic foods Keep a bladder diary Limit fluid intake 3-4 hours before bed Lose weight Prevent constipation Take fluid pills at a time when you can get to the bathroom quickly Control sugar better if diabetic Limit fluid intake to 60 oz. per day Wear support stockings (TEDs)if you have edema Mao Gonzalez RN 11/24/2022 documented in this encounter Nursing Notes * Mao Gonzalez RN - 11/24/2022 9:13 AM EDT Chief Complaint Patient presents with Re-Check Routine check up - patient accompanied by daughter Candelaria Fernández Discuss urinary leakage documented in this encounter Plan of Treatment Upcoming Encounters Date Type Specialty Care Team Description 04/16/2023 Office Visit Neurology Veronica Borges MD [address] [place] [address] 05/08/2023 Office Visit Urology Humberto Godinez MD [address] [facility] [address] [place] [address] Scheduled Referrals Name Type Priority Associated Diagnoses Orde r Schedule NEUROLOGY REFERRAL OP Referral Within 10 days (routine) Tremor of right hand Ordered: 11/24/2022 UROLOGY REFERRAL OP Referral Within 10 da ys (routine) BPH with obstruction/lower urinary tract symptoms Hydrocele, right Ordered: 11/24/2022 Health Maintenance Due Date Last Done Comments COVID-19 Vaccine (#1) 02/04/1941 Zoster Vaccines (1 of 2) 1990 Depression Screening, Annual for Pts 12 and Over 04/24/2023 04/24/2022 DTaP,Tdap,and Td Vaccines (2 - Td or Tdap) 11/24/2032 11/24/2022 Influenza Vaccine (FLU shot) Completed , 04/23/2018 Pneumococcal Vaccine: 65+ Years Completed 04/24/2022, 01/21/2018 [...] Procedure Name Priority Date/Time Associated Diagnosis Comments URINALYSIS WITH MICROSCOPIC EXAM Routine 11/24/2022 9:53 AM EDT BPH with obstruction/lower urinary tract symptoms documented in this encounter Results * US SCROTUM/TESTES (12/05/2022 2:51 PM EDT) Anatomical Region Laterality Modality Pelvis, Body Ultrasound 12/05/2022 2:10 PM EDT Impressions 12/06/2022 3:47 PM EDT IMPRESSION: 1. Large right hydrocele with colloid fluid, partially seen on the prior CT from 2018. Small left hydrocele. 2. Bilateral epididymis cysts. 3. Borderline small right varicocele. 4. Bilateral and symmetric slightly heterogeneous testicular parenchyma nonspecific but of dubious clinical significance. THIS DOCUMENT HAS BEEN ELECTRONICALLY SIGNED BY JARROD COOPER MD Narrative 12/06/2022 3:47 PM EDT PROCEDURE INFORMATION: Exam: US Scrotum and US Duplex Artery and Vein, Scrotum, Complete Exam date and time: 12/05/2022 2:10 PM Age: 82 years old Clinical indication: Hydrocele, unspecified; Additional info: Hydrocele right testicle TECHNIQUE: Imaging protocol: Real-time ultrasound of the scrotum. Real-time duplex ultrasound scan of the arterial and venous flow of the scrotum with B-mode, color Doppler flow and spectral waveform analysis. Complete exam. Duplex exam was performed to evaluate for torsion and other vascular conditions. COMPARISON: CT ABD/PELVIS W WO IV CONTRAST - WO ORAL CONT 01/21/2018 1:31 PM FINDINGS: Right testicle: Normal size. Slightly heterogeneous parenchyma. No mass. No torsion. Normal Duplex waveforms and color doppler. Left testicle: Normal size. Slightly heterogeneous parenchyma. No mass. No torsion. Normal Duplex waveforms and color doppler. Epididymides: Left epididymis 3.5 mm cyst. Right epididymis 11 mm cyst. Scrotum: Small left simple hydrocele. Large right hydrocele with colloid fluid, partially seen on the prior CT from 2017. Borderline small right varicocele. Procedure Note Jarrod Cooper MD - 12/06/2022 PROCEDURE INFORMATION: Exam: US Scrotum and US Duplex Artery and Vein, Scrotum, Complete Exam date and time: 12/05/2022 2:10 PM Age: 82 years old Clinical indication: Hydrocele, unspecified; Additional info: Hydroceleright testicle TECHNIQUE: Imaging protocol: Real-time ultrasound of the scrotum. Real-time duplex ultrasound scan of the arterial and venous flow of the scrotum withB-mode, color Doppler flow and spectral waveform analysis. Complete exam. Duplexexam was performed to evaluate for torsion and other vascular conditions. COMPARISON: CT ABD/PELVIS W WO IV CONTRAST - WO ORAL CONT 01/21/2018 1:31 PM FINDINGS: Right testicle: Normal size. Slightly heterogeneous parenchyma. No mass.No torsion. Normal Duplex waveforms and color doppler. Left testicle: Normal size. Slightly heterogeneous parenchyma. No mass.No torsion. Normal Duplex waveforms and color doppler. Epididymides: Left epididymis 3.5 mm cyst. Right epididymis 11 mm cyst. Scrotum: Small left simple hydrocele. Large right hydrocele with colloidfluid, partially seen on the prior CT from 2018. Borderline small rightvaricocele. IMPRESSION IMPRESSION: 1. Large right hydrocele with colloid fluid, partially seen on the priorCT from 2017. Small left hydrocele. 2. Bilateral epididymis cysts. 3. Borderline small right varicocele. 4. Bilateral and symmetric slightly heterogeneous testicular parenchyma nonspecific but of dubious clinical significance. THIS DOCUMENT HAS BEEN ELECTRONICALLY SIGNED BY JARROD COOPER MD [facility] RAD ULTRASOUND * TSH WITH FREE T4 IF INDICATED (11/24/2022 10:07 AM EDT) TSH 1.28 0.27 - 4.20 uIU/mL 11/24/2022 10:45 PM EDT [facility] Blood Venous blood specimen / Unknown Venipuncture / Unknown 11/24/2022 10:07 AM EDT 11/24/2022 10:07 AM EDT [facility] BLOOD ORDERABLES LAB[facility] [address] [place] [address] * COMPREHENSIVE METABOLIC PANEL (11/24/2022 10:07 AM EDT) BUN 17 6 - 20 mg/dL 11/24/2022 11:40 AM EDT [facility] Creatinine 0.9 0.6 - 1.2 mg/dL 11/24/2022 11:40 AM EDT [facility] Estimated Glomerular Filtration Rate 86 >=60 mL/min 11/24/2022 11:40 AM EDT [facility] Comment:eGFR is calculated b ased on the CKD-EPI 2020 equation Sodium 142 135 - 146 mmol/L 11/24/2022 11:40 AM EDT [facility] Potassium 4.7 3.5 - 5.1 mmol/L 11/24/2022 11:40 AM EDT [facility] Chloride 105 98 - 107 mmol/L 11/24/2022 11:40 AM EDT [facility] CO2 27 22 - 32 mmol/L 11/24/2022 11:40 AM EDT [facility] Anion Gap 10 7 - 15 mmol/L 11/24/2022 11:40 AM EDT [facility] Glucose 108 70 - 120 mg/dL 11/24/2022 11:40 AM EDT [facility] Albumin 4.4 3.8 - 5.0 g/dL 11/24/2022 11:40 AM EDT [facility] AST 17 10 - 50 U/L 11/24/2022 11:40 AM EDT [facility] Alkaline Phosphatase 64 35 - 130 U/L 11/24/2022 11:40 AM EDT [facility] Bilirubin, Total 1.0 <=1.2 mg/dL 11/24/2022 11:40 AM EDT [facility] Calcium 9.6 8.4 - 10.2 mg/dL 11/24/2022 11:40 AM EDT [facility] Protein 6.5 6.0 - 8.3 g/dL 11/24/2022 11:40 AM EDT [facility] ALT 17 10 - 50 U/L 11/24/2022 11:40 AM EDT [facility] Blood Venous blood specimen / Unknown Venipuncture / Unknown 11/24/2022 10:07 AM EDT 11/24/2022 10:07 AM EDT [facility] [place] [address] [place] [address] * PSA (11/24/2022 10:07 AM EDT) PSA 1.85 <4.10 ng/mL 11/24/2022 10:45 PM EDT [facility] Blood Venous blood specimen / Unknown Venipuncture / Unknown 11/24/2022 10:07 AM EDT 11/24/2022 10:07 AM EDT [facility] DO LAB BLOOD ORDERABLES [facility] [address] [place] [address] * URINALYSIS WITH MICROSCOPIC EXAM (11/24/2022 9:53 AM EDT) Color, Urine Yellow Light Yellow, Yellow, Dark Yellow 11/24/2022 11:58 AM EDT [facility] Clarity, Urine Clear Clear 11/24/2022 11:58 AM EDT [facility] Glucose, Urine Negative Negative mg/dL 11/24/2022 11:58 AM EDT [facility] Bilirubin, Urine Negative Negative 11/24/2022 11:58 AM EDT [facility] Ketone, Urine Negative Negative mg/dL 11/24/2022 11:58 AM EDT [facility] Specific [place], Urine >=1.030 1.003 - 1.030 11/24/2022 11:58 AM EDT [facility] Blood, Urine Negative Negative 11/24/2022 11:58 AM EDT [facility] pH, Urine 5.5 5.0 - 7.5 Units 11/24/2022 11:58 AM EDT [facility] Protein, Urine Negative Negative mg/dL 11/24/2022 11:58 AM EDT [facility] Urobilinogen, Urine 0.2 0.2, 1.0 mg/dL 11/24/2022 11:58 AM EDT [facility] Nitrite, Urine Negative Negative 11/24/2022 11:58 AM EDT [facility] Esterase, Urine Negative Negative 11/24/2022 11:58 AM EDT [facility] RBC, Urine 0-2 0 - 2 /HPF 11/24/2022 11:58 AM EDT [facility] WBC, Urine 0-2 0 - 2 /HPF 11/24/2022 11:58 AM EDT [facility] Bacteria, Urine 0-25 0 - 25 /HPF 11/24/2022 11:58 AM EDT [facility] Urine Urine specimen obtained by clean catch procedure / Unknown Non-blood Collection / Unknown 11/24/2022 9:53 AM EDT 11/24/2022 11:17 AM EDT Liborio King DO LAB URINE ORDERABLES [facility] [address] [place] [id number] documented in this encounter Visit Diagnoses Diagnosis Hydrocele, right- Primary Hydrocele, unspecified BPH with obstruction/lower urinary tract symptoms Hypertrophy of prostate with urinary obstruction and other lower urinary tract symptoms (LUTS) Tremor of right hand Need for aopudxreqe-peefgga-ebbcrwuzy (Tdap) vaccine Need for prophylactic vaccination with combined ftbstfcjui-azezxbo-qlndlneyc (DTP) vaccine Risk and functional assessment Screening for unspecified condition Hydrocele, right Hydrocele, unspecified documented in this encounter Care Teams Controls Designer Relationship Specialty Start Date End Date Liborio King DO [address] [place] [id number] PCP - General Family Medicine 01/21/18 documented as of this encounter
[2023-06-01] MEDS ORDERED: MoRPHine SULFATE 2 MG/ML CARP IV STA (05:31)
[2023-06-01] MEDS ORDERED: ACETAMINOPHEN 1,000 MG/100 ML VIAL IV STA (05:32)
--- NOTE | 2023-06-01 06:10 | CT Scan Report ---
Exam(s): CT ABDOMEN + PELVIS With Contrast IV Amt: 90 ml opti 320 EXAM: CT Abdomen and Pelvis With Intravenous Contrast CLINICAL HISTORY: Reason for exam: abdominal pain. TECHNIQUE: Axial computed tomography images of the abdomen and pelvis with intravenous contrast. CTDI is 15.61 mGy and DLP is 761.53 mGy-cm. Automated exposure control was utilized for the study. A dose lowering technique was utilized adhering to the principles of ALARA. CONTRAST: Patient received 90 ml opti 320 of IV contrast COMPARISON: 01/21/18 FINDINGS: Lung bases: Discoid atelectasis seen in the lung bases. ABDOMEN: Liver: Unremarkable. No mass. Gallbladder and bile ducts: Unremarkable. No calcified stones. No ductal dilation. Pancreas: There is fatty infiltration of the pancreas. No ductal dilation. Spleen: Unremarkable. No splenomegaly. Adrenals: Unremarkable. No mass. Kidneys and ureters: There is 8 mm diameter calculus seen in the left kidney. 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 No hydronephrosis. Stomach and bowel: Left inguinal hernia containing a loop of nondilated sigmoid colon. Generous amount of air seen in the right and transverse colon. The tip of the cecum is in the midline. No mucosal thickening. PELVIS: Appendix: Appendix is not visualized. No findings to suggest acute appendicitis. Bladder: Unremarkable. No mass. Reproductive: Moderate prostatomegaly. ABDOMEN and PELVIS: Intraperitoneal space: Unremarkable. No free air. No significant fluid collection. Bones/joints: No acute fracture. No dislocation. Soft tissues: See above. Vasculature: Unremarkable. No abdominal aortic aneurysm. Lymph nodes: Unremarkable. No enlarged lymph nodes. IMPRESSION: 1. Generous amount of air in the right and transverse colon which could be from ileus. 2. Horseshoe kidney and left nephrolithiasis. No hydronephrosis Electronically signed by: Andrey Lindo MD 06/01/23 06:09 AM
--- NOTE | 2023-06-01 07:03 | XRay Report ---
KUB HISTORY: burning epigastric pain COMPARISON: Abdomen and pelvis CT 06/01/2023. FINDINGS: The bowel gas pattern is unremarkable. There are no dilated loops of small bowel to suggest an obstruction. The patient's known left renal stone is not well visualized due to the overlying mariia wel gas. No pneumoperitoneum or pneumatosis. Moderate well-formed stool within the proximal colon. Mi ld interstitial thickening at the lungs. The heart is enlarged. It should be noted that the gallbladd er appears distended and demonstrates trace pericholecystic fluid/inflammatory change on the same day abdomen and pelvis CT. This raises the possibility of an early acute cholecystitis. Clinical correla tion recommended. IMPRESSION: 1. Nonobstructive bowel gas pattern. 2. It should be noted that the gallbladder appears distended and demonstrates trace pericholecystic f luid/inflammatory change on the same day abdomen and pelvis CT. This raises the possibility of an ear ly acute cholecystitis. Clinical correlation recommended. 3. This report was called/faxed to the emergency department following dictation. ACT 112: Negative or not required by law. Electronically signed by: Madi Salamanca M.D. 06/01/2023 7:00 AM
[2023-06-01] MEDS ORDERED: SODIUM CHLORIDE 0.9% 1,000 ML IV ONE (07:12)
[2023-06-01] MEDS ORDERED: MoRPHine SULFATE 2 MG/ML CARP ONE (08:43)
[2023-06-01] MEDS ORDERED: MoRPHine SULFATE 2 MG/ML CARP IV PRN (08:47)
[2023-06-01] MEDS ORDERED: ONDANSETRON INJ 2 MG/ML 2 ML VIAL IV PRN ×2 (08:47→13:52)
--- NOTE | 2023-06-01 09:03 | History & Physical Report ---
Date of Service June 01, 2023 Assessment & Plan (1) Abdominal pain: Plan: 82 years old male with past medical history of dyslipidemia, BPH, fibromuscular dysplasia, tremors, hearing loss, tension headache presented to the ER with excruciating abdominal pain. Possible related to Ileus vs acute cholecystitis Received IVF, IV Morphine, sulcrafate, IV Zofran, and PPI in the ER CT abd/pelvis showed Gallbladder appears distended and demonstrates trace pericholecystic fluid/inflammatory change on the same day abdomen and pelvis CT. This raises the possibility of an early acute cholecystitis. KUB showed Nonobstructive bowel gas pattern. Moderate well-formed stool within the proximal colon. Lipase normal and LFT wnl Will consult general surgery Stat Gallbladder ultrasound pending Continue pain management with IV morphine and IV Tylenol Will keep n.p.o. for now Continue gentle fluid hydration Will monitor electrolyte Hyperglycemia Will check Hba1c BPH Hold p.o. Flomax and Proscar, will resume once starts on diet Dyslipidemia Hold statin for now while NPO. will resume once starts on diet ?Fibromuscular dysplasia Will resume aspirin and statin once able to take PO Outpatient follow-up with neurology DVT prophylaxis SCD for now anticipate surgical intervention. Consider subcu heparin postop when bleeding stable. CODE STATUS full code History of Present Illness Chief Complaint: Abdominal pain Primary Care Provider: Eleni Jacobson DO 82 years old male with past medical history of dyslipidemia, BPH, fibromuscular dysplasia, tremors, hearing loss, tension headache presented to the ER with excruciating abdominal pain. Daughter at bedside help with the history. Patient said pain started last night after dinner. He said the pain started in the epigastric area then radiated to his back. He said that now the pain seems to be across the abdomen. Abdominal pain associated with nausea. Described the pain as constant, grade 10 out of the 10 and his abdominal feel distended. He said that he never had this pain before. He said he has not had a bowel movement for the last few days. He said he usually takes stool softener to help him with bowel movement. He was given morphine IV in the ER that helped with the pain. Daughter said he is a [place], very active and does not need assistance to ambulate. Denies any chest pain, palpitation, dizziness and shortness of breath. Allergies Allergy/AdvReac Type Severity Reaction Status Date / Time No Known Allergies Allergy Verified 12/08/23 00:04 Home Medications Medication Instructions Recorded Confirmed Type finasteride 5 mg tablet 5 mg PO QAM 01/01/23 06/01/23 History tamsulosin 0.4 mg capsule 0.4 mg PO QAM 01/01/23 06/01/23 History aspirin 81 mg tablet,delayed 81 mg PO DAILY 06/01/23 06/01/23 History release rosuvastatin 10 mg tablet 10 mg PO QAM 06/01/23 06/01/23 History Past Med/Surg History Medical History Benign prostatic hyperplasia with urinary obstruction Bladder calculus Gross hematuria Nephrolithiasis Urinary retention PMR (polymyalgia rheumatica) Urinary retention Nephrolithiasis Gross hematuria BPH (benign prostatic hyperplasia) Surgical History Hx of left cataract extraction Family History Father No pertinent family history Social History Smoking Status: Never smoker Second Hand Exposure: No; Do You Dip or Chew Tobacco: No; Tobacco Cessation Education Requested by Patient: No Hx Alcohol Use: No Hx Substance Use: No Preferred Language: Guyanese Communication Ability: Effective Communication Ability Comment: ELY SHOSHONE Visual Impairment: No Limitations Donor Recruiter Required: No Beliefs That Will Affect Care: None marital status: Current Living Situation: Alone Other Information That Helps Us Care for You: No Feels Safe at Home: Yes Assistive Devices: Glasses Assistive Devices Comment: reading Review of Systems Review of Systems: All systems reviewed & are unremarkable except as noted in HPI & below Physical Exam Physical Exam: General- No acute distress Head- atraumatic Eyes- PERRL, EOMI, ENT- decrease hearing function Neck- supple, no JVD Lungs- clear to auscultation Heart- regular rhythm Abdomen- +abdominal pain, +distended, hypoactive bowel sound Extremities- no calf tenderness Neuro- alert, oriented x 3; PERRL, EOMI; no facial palsy; no dysarthria, +RUE tremor Skin- warm & dry Results & Data Results & Data Vital Signs (Past 12 Hours) Vital Signs Temp Pulse Pulse Resp BP BP Pulse Ox 06/01/23 07:29 18 168/82 H 92 06/01/23 03:48 60 18 171/77 H 97 05/31/23 23:55 96 05/31/23 23:35 36.5 C 59 L 16 184/86 H 94 O2 Del Method 06/01/23 07:29 Room Air 06/01/23 03:48 Room Air 05/31/23 23:55 05/31/23 23:35 Room Air Laboratory Results Laboratory Results WBC 6.06 K/ul (4.8-10.8) 06/01/23 00:30 RBC 4.45 M/uL (4.70-6.10) L 06/01/23 00:30 Hgb 14.5 g/dl (14.0-18.0) 06/01/23 00:30 Hct 41.9 % (42.0-52.0) L 06/01/23 00:30 MCV 94.2 fL (80.0-100.0) 06/01/23 00:30 MCH 32.6 pg (25.0-34.0) 06/01/23 00:30 MCHC 34.6 g/dL (32.0-36.0) 06/01/23 00:30 RDW Std Deviation 42.4 fL (36.4-46.3) 06/01/23 00:30 RDW Coeff of Titi 12.2 % (11.5-14.5) 06/01/23 00:30 Plt Count 196 K/uL (130-400) 06/01/23 00:30 MPV 10.4 fL (9.4-12.4) 06/01/23 00:30 Immature Gran % (Auto) 0.2 % 06/01/23 00:30 Neut % (Auto) 65.2 % 06/01/23 00:30 Lymph % (Auto) 25.2 % 06/01/23 00:30 [place] % (Auto) 7.9 % 06/01/23 00:30 Eos % (Auto) 1.3 % 06/01/23 00:30 Baso % (Auto) 0.2 % 06/01/23 00:30 Neut # (Auto) 3.95 K/uL (1.40-6.50) 06/01/23 00:30 Lymph # (Auto) 1.53 K/uL (1.20-3.40) 06/01/23 00:30 [place] # (Auto) 0.48 K/uL (0.11-0.59) 06/01/23 00:30 Eos # (Auto) 0.08 K/uL (0.00-0.50) 06/01/23 00:30 Baso # (Auto) 0.01 K/uL (0.00-0.20) 06/01/23 00:30 Immature Gran # (Auto) 0.01 K/uL (0.01-0.20) 06/01/23 00:30 Sodium 140 mmol/L (136-145) 06/01/23 00:30 Potassium 4.1 mmol/L (3.5-5.1) 06/01/23 00:30 Chloride 105 mmol/L (98-107) 06/01/23 00:30 Carbon Dioxide 29 mmol/L (21-32) 06/01/23 00:30 Anion Gap 6 (3-11) 06/01/23 00:30 BUN 17 mg/dl (6-23) 06/01/23 00:30 Creatinine 0.91 mg/dl (0.6-1.4) 06/01/23 00:30 Est Cr Clr Drug Dosing 58.5 ml/min 06/01/23 00:30 Est GFR ( Amer) 90.6 ml/min 06/01/23 00:30 Est GFR (Non-Af Amer) 78.2 ml/min 06/01/23 00:30 BUN/Creatinine Ratio 18.7 (10-20) 06/01/23 00:30 Glucose 127 mg/dl (70-99(Fasting)) H 06/01/23 00:30 Calcium 9.2 mg/dl (8.6-10.3) 06/01/23 00:30 Total Bilirubin 1.2 mg/dl (0.2-1.0) H 06/01/23 00:30 AST 19 U/L (13-39) 06/01/23 00:30 ALT 18 U/L (7-52) 06/01/23 00:30 Alkaline Phosphatase 60 U/L (34-104) 06/01/23 00:30 Troponin I High Sens 5.5 pg/ml (0-20) 06/01/23 02:40 Total Protein 6.6 gm/dl (6.0-8.3) 06/01/23 00:30 Albumin 4.2 gm/dl (3.4-5.0) 06/01/23 00:30 Globulin 2.4 gm/dl (2.5-4.0) L 06/01/23 00:30 Albumin/Globulin Ratio 1.8 (0.9-2) 06/01/23 00:30 Lipase 11 U/L (11-82) 06/01/23 00:30 Impressions KUB X-Ray 05/31/23 23:56 KUB HISTORY: burning epigastric pain COMPARISON: Abdomen and pelvis CT 06/01/2023. FINDINGS: The bowel gas pattern is unremarkable. There are no dilated loops of small bowel to suggest an obstruction. The patient's known left renal stone is not well visualized due to the overlying bowel gas. No pneumoperitoneum or pneumatosis. Moderate well-formed stool within the proximal colon. Mild interstitial thickening at the lungs. The heart is enlarged. It should be noted that the gallbladder appears distended and demonstrates trace pericholecystic fluid/inflammatory change on the same day abdomen and pelvis CT. This raises the possibility of an early acute cholecystitis. Clinical correlation recommended. IMPRESSION: 1. Nonobstructive bowel gas pattern. 2. It should be noted that the gallbladder appears distended and demonstrates trace pericholecystic fluid/inflammatory change on the same day abdomen and pelvis CT. This raises the possibility of an early acute cholecystitis. Clinical correlation recommended. 3. This report was called/faxed to the emergency department following dictation. ACT 112: Negative or not required by law. Electronically signed by: Madi Salamanca M.D. 06/01/2023 7:00 AM Abdomen/Pelvis CT 06/01/23 00:28 Exam(s): CT ABDOMEN + PELVIS With Contrast IV Amt: 90 ml opti 320 EXAM: CT Abdomen and Pelvis With Intravenous Contrast CLINICAL HISTORY: Reason for exam: abdominal pain. TECHNIQUE: Axial computed tomography images of the abdomen and pelvis with intravenous contrast. CTDI is 15.61 mGy and DLP is 761.53 mGy-cm. Automated exposure control was utilized for the study. A dose lowering technique was utilized adhering to the principles of ALARA. CONTRAST: Patient received 90 ml opti 320 of IV contrast COMPARISON: 01/21/18 FINDINGS: Lung bases: Discoid atelectasis seen in the lung bases. ABDOMEN: Liver: Unremarkable. No mass. Gallbladder and bile ducts: Unremarkable. No calcified stones. No ductal dilation. Pancreas: There is fatty infiltration of the pancreas. No ductal dilation. Spleen: Unremarkable. No splenomegaly. Adrenals: Unremarkable. No mass. Kidneys and ureters: There is 8 mm diameter calculus seen in the left kidney. 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 No hydronephrosis. Stomach and bowel: Left inguinal hernia containing a loop of nondilated sigmoid colon. Generous amount of air seen in the right and transverse colon. The tip of the cecum is in the midline. No mucosal thickening. PELVIS: Appendix: Appendix is not visualized. No findings to suggest acute appendicitis. Bladder: Unremarkable. No mass. Reproductive: Moderate prostatomegaly. ABDOMEN and PELVIS: Intraperitoneal space: Unremarkable. No free air. No significant fluid collection. Bones/joints: No acute fracture. No dislocation. Soft tissues: See above. Vasculature: Unremarkable. No abdominal aortic aneurysm. Lymph nodes: Unremarkable. No enlarged lymph nodes. IMPRESSION: 1. Generous amount of air in the right and transverse colon which could be from ileus. 2. Horseshoe kidney and left nephrolithiasis. No hydronephrosis Electronically signed by: Andrey Lindo MD 06/01/23 06:09 AM Code Status & VTE Plan VTE Prophylaxis Plan VTE Prophylaxis will be ordered: Yes
[2023-06-01] MEDS: SODIUM CHLORIDE 0.9% 1,000 ML IV SCH ×2 (10:07→21:03)
--- NOTE | 2023-06-01 10:11 | Ultrasound Report ---
ABDOMINAL ULTRASOUND, RIGHT UPPER QUADRANT HISTORY: epigastric pain. COMPARISON: Abdomen and pelvis CT 06/01/2023. FINDINGS: Pancreas: The pancreatic tail is obscured by overlying bowel gas. The remaining portions of the pancr eas are within normal limits. Liver: Unremarkable. Gallbladder: The gallbladder is distended and contains multiple small gallstones. There is mild gallb ladder wall thickening measuring between 3 and 5 mm with trace pericholecystic fluid. A sonographic M urphy's sign cannot be adequately assessed due to the patient's on board pain medication. CBD: 5 mm. Right kidney: No hydronephrosis. IMPRESSION: Distended gallbladder containing multiple small stones with mild gallbladder wall thickening. This is suspicious for an acute cholecystitis. Surgical consultation recommended. ACT 112: Negative or not required by law. Electronically signed by: Madi Salamanca M.D. 06/01/2023 10:09 AM
[2023-06-01] MEDS: ACETAMINOPHEN 1,000 MG/100 ML VIAL IV PRN (10:31)
--- NOTE | 2023-06-01 12:34 | Electrocardiogram Report ---
Test Reason : Blood Pressure : / mmHG Vent. Rate : 056 BPM Atrial Rate : 056 BPM P-R Int : 222 ms QRS Dur : 112 ms QT Int : 434 ms P-R-T Axes : 058 021 036 degrees QTc Int : 418 ms Sinus bradycardia with 1st degree A-V block Incomplete right bundle branch block Borderline ECG When compared with ECG of 01-JAN-2023 12:49, ME interval has increased Confirmed by Devan Alas ([id number]) on 06/01/2023 12:34:12 PM Referred By: REFERRED SELF Confirmed By:Devan Alas
[2023-06-01] MEDS ORDERED: LIDOCAINE 2% 2 ML VIAL/AMP(20MG/ML) INFIL ONE (13:36)
[2023-06-01] MEDS ORDERED: ROCURONIUM BROMIDE 10 MG/ML 5 ML VIAL IV ONE ×2 (13:36→15:05)
[2023-06-01] MEDS ORDERED: ONDANSETRON INJ 2 MG/ML 2 ML VIAL ONE (13:36)
[2023-06-01] MEDS ORDERED: PROPOFOL IV EMULSION 10 MG/ML 20 ML VIAL IV ONE (13:36)
[2023-06-01] MEDS ORDERED: fentaNYL citrate PF 100 MCG/2 ML VIAL ONE (13:36)
--- NOTE | 2023-06-01 13:43 | History & Physical Report ---
Date of Service June 01, 2023 Assessment & Plan (1) Acute cholecystitis: Plan 82-year-old with acute cholecystitis. We discussed the risk benefits of a laparoscopic cholecystectomy. All his questions were answered, he is agreeable to proceed. Consent has been obtained. Will schedule this at the earliest convenience. Admission and Anticipated Discharge Date Admission Date: June 01, 2023 History of Present Illness Primary Care Provider: Eleni Jacobson DO 82-year-old gentleman presents with a 1 day history of epigastric and right upper quadrant pain, nausea, vomiting. He has never had pain like this in the past. No fevers or chills. Pain is slightly improved with pain medication but is still present. He has no prior surgical history. CT scan and ultrasound demonstrate evidence of acute cholecystitis. White blood cell count is 6. Allergies Allergy/AdvReac Type Severity Reaction Status Date / Time No Known Allergies Allergy Verified 06/01/23 00:04 Home Medications Medication Instructions Recorded Confirmed Type finasteride 5 mg tablet 5 mg PO QAM 01/01/23 06/01/23 History tamsulosin 0.4 mg capsule 0.4 mg PO QAM 01/01/23 06/01/23 History aspirin 81 mg tablet,delayed 81 mg PO DAILY 06/01/23 06/01/23 History release rosuvastatin 10 mg tablet 10 mg PO QAM 06/01/23 06/01/23 History Past Med/Surg History Medical History (Updated 06/01/23 @ 13:43 by Isaias Godinez MD) Benign prostatic hyperplasia with urinary obstruction Bladder calculus Gross hematuria Nephrolithiasis Urinary retention PMR (polymyalgia rheumatica) Urinary retention Nephrolithiasis Gross hematuria BPH (benign prostatic hyperplasia) Surgical History Hx of left cataract extraction Family History Father No pertinent family history Social History Smoking Status: Never smoker Second Hand Exposure: Yes (ON OCC); Do You Dip or Chew Tobacco: No; Hx Alcohol Use: No Hx Substance Use: No Preferred Language: Welsh Communication Ability: Effective Visual Impairment: No Limitations New Grad Rn Required: No Beliefs That Will Affect Care: None marital status: Current Living Situation: Spouse Feels Safe at Home: Yes Assistive Devices: Glasses and Hearing Aid - Bilateral Review of Systems Review of Systems: All systems reviewed & are unremarkable except as noted in HPI & below Physical Exam Constitutional: WD/WN, vitals as above Eyes: PERRL, conjunctivae normal, anicteric sclerae Neck: trachea midline, no thyromegaly Respiratory: normal respiratory effort; no respiratory distress and no labored breathing Cardiovascular: Rate/Rhythm: regular rate and regular rhythm Gastrointestinal (Abdomen): Inspection/Auscultation: abdomen normal to inspection and + abdomen distended (Mild) Percussion/Palpation: + abdomen tender (Epigastrium) and abdomen soft; no guarding and abdomen not rigid Skin: no rashes, warm and dry Psychiatric: A+Ox3, euthymic affect Results & Data Results & Data Vital Signs (Past 12 Hours) Vital Signs Pulse Pulse Resp BP BP Pulse Ox O2 Del Method 06/01/23 12:28 59 L 20 148/91 H 93 Room Air 06/01/23 08:39 65 18 135/65 95 Room Air 06/01/23 07:29 18 168/82 H 92 Room Air 06/01/23 03:48 60 18 171/77 H 97 Room Air Laboratory Results 06/01/23 06/01/23 Range/Units 02:40 00:30 WBC 6.06 (4.8-10.8) K/ul RBC 4.45 L (4.70-6.10) M/uL Hgb 14.5 (14.0-18.0) g/dl Hct 41.9 L (42.0-52.0) % MCV 94.2 (80.0-100.0) fL MCH 32.6 (25.0-34.0) pg MCHC 34.6 (32.0-36.0) g/dL RDW Std Deviation 42.4 (36.4-46.3) fL RDW Coeff of Titi 12.2 (11.5-14.5) % Plt Count 196 (130-400) K/uL MPV 10.4 (9.4-12.4) fL Immature Gran % (Auto) 0.2 % Neut % (Auto) 65.2 % Lymph % (Auto) 25.2 % [place] % (Auto) 7.9 % Eos % (Auto) 1.3 % Baso % (Auto) 0.2 % Neut # (Auto) 3.95 (1.40-6.50) K/uL Lymph # (Auto) 1.53 (1.20-3.40) K/uL [place] # (Auto) 0.48 (0.11-0.59) K/uL Eos # (Auto) 0.08 (0.00-0.50) K/uL Baso # (Auto) 0.01 (0.00-0.20) K/uL Immature Gran # (Auto) 0.01 (0.01-0.20) K/uL Sodium 140 (136-145) mmol/L Potassium 4.1 (3.5-5.1) mmol/L Chloride 105 (98-107) mmol/L Carbon Dioxide 29 (21-32) mmol/L Anion Gap 6 (3-11) BUN 17 (6-23) mg/dl Creatinine 0.91 (0.6-1.4) mg/dl Est Cr Clr Drug Dosing 58.5 ml/min Est GFR ( Amer) 90.6 ml/min Est GFR (Non-Af Amer) 78.2 ml/min BUN/Creatinine Ratio 18.7 (10-20) Glucose 127 H (70-99(Fasting)) mg/dl Calcium 9.2 (8.6-10.3) mg/dl Total Bilirubin 1.2 H (0.2-1.0) mg/dl AST 19 (13-39) U/L ALT 18 (7-52) U/L Alkaline Phosphatase 60 (34-104) U/L Troponin I High Sens 5.5 5.8 (0-20) pg/ml Total Protein 6.6 (6.0-8.3) gm/dl Albumin 4.2 (3.4-5.0) gm/dl Globulin 2.4 L (2.5-4.0) gm/dl Albumin/Globulin Ratio 1.8 (0.9-2) Lipase 11 (11-82) U/L Diagnostic Findings ABDOMINAL ULTRASOUND, RIGHT UPPER QUADRANT HISTORY: epigastric pain. COMPARISON: Abdomen and pelvis CT 06/01/2023. FINDINGS: Pancreas: The pancreatic tail is obscured by overlying bowel gas. The remaining portions of the pancreas are within normal limits. Liver: Unremarkable. Gallbladder: The gallbladder is distended and contains multiple small gallstones. There is mild gallbladder wall thickening measuring between 3 and 5 mm with trace pericholecystic fluid. A sonographic Martinez's sign cannot be adequately assessed due to the patient's on board pain medication. CBD: 5 mm. Right kidney: No hydronephrosis. IMPRESSION: Distended gallbladder containing multiple small stones with mild gallbladder wall thickening. This is suspicious for an acute cholecystitis. Surgical consultation recommended. ACT 112: Negative or not required by law. Code Status & VTE Plan VTE Prophylaxis Plan VTE Prophylaxis will be ordered: Yes
[2023-06-01] MEDS ORDERED: LACTATED RINGER'S 1,000 ML IV SCH (13:45)
[2023-06-01] MEDS ORDERED: fentaNYL citrate PF 100 MCG/2 ML VIAL IV PRN (13:52)
[2023-06-01] MEDS ORDERED: ATROPINE SULFATE 0.1 MG/ML 10ML SYR IV PRN (13:52)
[2023-06-01] MEDS ORDERED: ePHEDrine sulfate 50 MG/ML AMP IV PRN (13:52)
[2023-06-01] MEDS ORDERED: BUPIVACAINE/EPINEPHRINE 0.25% 1:200,000 30 ML VIAL ONE (13:52)
[2023-06-01] MEDS ORDERED: HYDROmorphone INJ 1 MG/ML SYRINGE IV PRN (13:52)
--- NOTE | 2023-06-01 13:53 | Anesthesiology Consultation ---
Date of Service June 01, 2023 Assessment & Plan (1) Encounter for pre-operative examination: Chart Review Chart Review: Acceptable Risk for Surgery and Patient NOT seen in Pre Admission Testing Consults Requested none History Surgery Operation Date: 06/01/23 12:25 Proposed Procedures p Laparoscopic Cholecystectomy - Isaias Godinez MD Height/Weight Height: 5 ft 7 in Weight: 75.6 kg Allergies Allergy/AdvReac Type Severity Reaction Status Date / Time No Known Allergies Allergy Verified 06/01/23 00:04 Medications Home Medications Medication Instructions Recorded Confirmed Last Taken finasteride 5 mg tablet 5 mg PO QAM 01/01/23 06/01/23 05/31/23 tamsulosin 0.4 mg capsule 0.4 mg PO QAM 01/01/23 06/01/23 05/31/23 aspirin 81 mg tablet,delayed 81 mg PO DAILY 06/01/23 06/01/23 05/31/23 release rosuvastatin 10 mg tablet 10 mg PO QAM 06/01/23 06/01/23 05/31/23 Active Medications Generic Name Dose Route Start Last Admin Trade Name Freq PRN Reason Stop Dose Admin Acetaminophen 1,000 mg in 100 mls @ 400 mls/hr 06/01/23 08:47 06/01/23 10:48 Ofirmev IV 06/04/23 08:46 0 mls/hr Q8H PRN Infusion Mild-Mod Pain (Scale 1-6) Sodium Chloride 1,000 mls @ 70 mls/hr 06/01/23 08:47 06/01/23 10:07 Nss IV 06/02/23 13:21 70 mls/hr .[id number] WONG Administration Lactated Ringer's 1,000 mls @ 15 mls/hr 06/01/23 13:45 06/01/23 14:21 Lr IV 07/01/23 13:44 15 mls/hr .Q24H WONG Administration Morphine Sulfate 2 mg 06/01/23 08:47 06/01/23 08:55 Morphine Sulfate 2 Mg/Ml Carp IV 06/15/23 08:46 2 mg Q6H PRN Administration moderate to severe Pain Ondansetron HCl 4 mg 06/01/23 08:47 06/01/23 10:28 Ondansetron Inj 2 Mg/Ml 2 Ml Vial IV 07/01/23 08:46 4 mg Q6H PRN Administration Nausea Past Medical History Medical History Benign prostatic hyperplasia with urinary obstruction Bladder calculus Gross hematuria Nephrolithiasis Urinary retention PMR (polymyalgia rheumatica) Urinary retention Nephrolithiasis Gross hematuria BPH (benign prostatic hyperplasia) Past Family History Family History Father No pertinent family history Past Surgical History Surgical History Hx of left cataract extraction Social History Smoking Status: Never smoker Do You Dip or Chew Tobacco: No Hx Alcohol Use: No Hx Substance Use: No substance use type: does not use Physical Exam Vital Signs Last Vital Signs Temp 36.9 C 06/01/23 13:53 Pulse 71 06/01/23 13:53 Resp 20 06/01/23 13:53 BP 135/61 06/01/23 13:53 Pulse Ox 94 06/01/23 13:53 O2 Del Method Room Air 06/01/23 13:53 Testing Laboratory Results 06/01/23 00:30 06/01/23 00:30 Urine Color Yellow 06/01/23 13:45 Urine Appearance Clear (Clear) 06/01/23 13:45 Urine pH 5.0 (4.5-7.5) 06/01/23 13:45 Ur Specific [place] 1.040 (1.000-1.030) H 06/01/23 13:45 Urine Protein Negative (Negative) 06/01/23 13:45 Urine Glucose (UA) Trace (Negative) H 06/01/23 13:45 Urine Ketones Negative (Negative) 06/01/23 13:45 Urine Nitrite Negative (Negative) 06/01/23 13:45 Ur Leukocyte Esterase Negative (Negative) 06/01/23 13:45 Urine WBC (Auto) 1-5 /hpf (0-5) 06/01/23 13:45 Urine RBC (Auto) 5-10 /hpf (0-4) H 06/01/23 13:45 U Hyaline Cast (Auto) 1-5 /lpf (0-5) 06/01/23 13:45 U Epithel Cells (Auto) 5-10 /lpf (0-5) H 06/01/23 13:45 Urine Bacteria (Auto) Negative (Negative) 06/01/23 13:45 Electrocardiogram Date: 06/01/23 DICTATED BY: Devan Alas MD Test Reason : Blood Pressure : / mmHG Vent. Rate : 056 BPM Atrial Rate : 056 BPM P-R Int : 222 ms QRS Dur : 112 ms QT Int : 434 ms P-R-T Axes : 058 021 036 degrees QTc Int : 418 ms Sinus bradycardia with 1st degree A-V block Incomplete right bundle branch block Borderline ECG When compared with ECG of 01-JAN-2023 12:49, IL interval has increased Confirmed by Devan Alas ([id number]) on 06/01/2023 12:34:12 PM
[2023-06-01] MEDS ORDERED: ceFAZolin 2000MG 2,000 MG/15 ML SYR IV ONE (14:05)
[2023-06-01 14:13] LABS: Appearance Urine Clear (Clear); Bacteria Urine Automated Negative (Negative); Bilirubin Urine Negative (Negative); Blood Urine 1+ (Negative); Color Urine Yellow; Glucose Urine UA Trace (Negative); Ketones Urine Negative (Negative); Leukocyte Esterase Urine Negative (Negative); Nitrite Urine Negative (Negative); Protein Urine Negative (Negative); Urobilinogen Urine Negative (Negative)
[2023-06-01] MEDS ORDERED: SUCCINYLCHOLINE 100MG/5ML SYR IV ONE (14:43)
[2023-06-01] MEDS ORDERED: DEXAMETHASONE SOD INJ 4 MG/ML VIAL ONE (15:05)
[2023-06-01] MEDS ORDERED: SUGAMMADEX SODIUM 200 MG/2 ML VIAL IV ONE (15:34)
[2023-06-01] MEDS ORDERED: FLOSEAL HEMOSTATIC MATRIX 10ML TOP ONE (15:36)
[2023-06-01] MEDS ORDERED: SURGICEL ABSORB HEMOSTAT 2IN X 14IN TOP ONE (15:36)
--- NOTE | 2023-06-01 16:21 | Post Operative Brief Note ---
Immediate Post Op Note v1 Date of Surgery June 01, 2023 Pre & Post Diagnosis Operation Date: 06/01/23 12:25 Pre-Op Diagnosis: Acute cholecystitis. Post-Op Diagnosis: Acute cholecystitis. I identified the patient and participated in the time-out.: Yes Procedure Operation Date: 06/01/23 12:25 Actual Procedures p Laparoscopic Cholecystectomy - Isaias Godinez MD Surgeon Isaias Godinez MD Manager Testing None Estimated Blood Loss 20 Findings Consistent with Post-Op Diagnosis Drains Sarwat-Lindsey Drain (15 Eliel)
--- NOTE | 2023-06-01 16:24 | Operative Report ---
Post Operative Report Pre & Post Diagnosis Operation Date: 06/01/23 12:25 Pre-Op Diagnosis: Acute cholecystitis. Post-Op Diagnosis: Acute cholecystitis. I identified the patient and participated in the time-out.: Yes Procedure Operation Date: 06/01/23 12:25 Actual Procedures p Laparoscopic Cholecystectomy - Isaias Godinez MD Surgeon Isaias Godinez MD [employer] None Estimated Blood Loss 20 Findings Consistent with Post-Op Diagnosis Severe acute gangrenous cholecystitis; gallbladder full of small renal stones; significant adhesions and severe inflammation requiring tedious dissection resulting in over doubled the normal operating time, warranting a 22 modifier in this circumstance. Specimens Gallbladder Drains 15 [place] LEANN Anesthesia Type General Complications No immediate complications Description of Procedure The patient was taken to the operating room, and placed supine on the operating table. A timeout was performed, perioperative antibiotics were administered, S CD boots were placed. After adequate anesthesia and analgesia was obtained, the abdomen was prepped and draped in the normal sterile fashion. Local anesthetic was injected into and around the proposed incision sites. An incision was made with a 15 blade scalpel in the supraumbilical region and carried down to the level of the fascia. The fascia was grasped with a trach hook, and a varies needle was used to enter the abdominal cavity. The abdomen was insufflated to a pressure of 15 mmHg, and a 11 mm trocar was placed in this location. A 10 mm, 30 degree laparoscope was placed into the abdominal cavity, and the abdomen was surveyed. The transverse colon was quite distended, and there was dense adhesions of the omentum to the liver. There was a significant amount of inflammatory fluid in the right upper quadrant. Two 5 mm trochars were placed along the right costal margin, and one 5 mm trocar was placed in the subxiphoid region under direct visualization. Using blunt dissection and careful use of the hook cautery as well as suction dissection, I was able to expose the top of the gallbladder. It was taut and very difficult to grasp due to stones and inflammation. The gallbladder was drained with an 18-gauge aspiration needle. The gallbladder was grasped and retracted cephalad and laterally, exposing the triangle of Calot. There was severe significant acute and chronic inflammation in this area which made the dissection quite tedious. Careful dissection began in the triangle with a combination of blunt dissection with the [place] dissector, and judicious use of the hook cautery. The cystic duct and cystic artery were dissected free circumferentially, and a critical view of safety was obtained. The cystic duct and cystic artery were clipped and transected, and the gallbladder was removed from the gallbladder fossa with the hook cautery. The camera was switched to a 5 mm, the gallbladder was placed in an Endo Catch bag, and removed via the supraumbilical port site. Due to the severe inflammation, size of the gallbladder, and large number of stones, the supraumbilical incision was made significantly larger to accommodate removing the gallbladder. The camera was switched back to the 10 mm camera, and the abdomen was surveyed again. Hemostasis was checked and attended, and was excellent. The abdomen was copiously irrigated and suctioned free. Again hemostasis was checked and was excellent. All trochars were removed under direct visualization. The abdomen was desufflated. The fascia in the 11 mm port site was closed with a 0 Vicryl suture. The skin was closed with a running 4-0 Monocryl subcuticular stitch. Dermabond was applied. The patient tolerated the procedure without complication, and was transferred in stable condition to the PACU. All instrument, needle, and sponge counts were correct at the end of the case. I attest to the content of the Intraoperative Record and any orders documented therein. Any exceptions are noted below.
[2023-06-01] MEDS ORDERED: oxyCODONE/ACETAMINOPHEN 5mg/325mg TAB PO PRN (17:46)
--- NOTE | 2023-06-01 18:00 | Anesthesiology Progress Note ---
Date of Service June 01, 2023 Anesthesia Post Procedure Vital Signs Vital Signs: Temp Pulse Pulse Pulse Resp BP BP 06/01/23 17:05 67 15 123/64 06/01/23 16:55 97.5 F L 69 16 125/49 L 06/01/23 16:45 62 15 115/42 L 06/01/23 16:35 59 L 15 129/61 06/01/23 16:25 98.4 F 75 18 134/56 L 06/01/23 13:53 98.4 F 71 20 135/61 06/01/23 12:28 59 L 20 148/91 H 06/01/23 08:39 65 18 135/65 06/01/23 07:29 18 168/82 H 06/01/23 03:48 60 18 171/77 H 05/31/23 23:55 05/31/23 23:35 97.7 F 59 L 16 184/86 H Pulse Ox O2 Del Method O2 Flow Rate 06/01/23 17:05 95 Nasal Cannula 2 06/01/23 16:55 94 Nasal Cannula 2 06/01/23 16:45 93 Room Air 06/01/23 16:35 93 Oxymask 8 06/01/23 16:25 92 Oxymask 8 06/01/23 13:53 94 Room Air 06/01/23 12:28 93 Room Air 06/01/23 08:39 95 Room Air 06/01/23 07:29 92 Room Air 06/01/23 03:48 97 Room Air 05/31/23 23:55 96 05/31/23 23:35 94 Room Air Pain Intensity Abdomen: Pain Intensity: 6 Transfer of Care Handoff Completed per policy Notes Mental Status: alert / awake / arousable and participated in evaluation Patient Amnestic to Procedure: Yes Nausea / Vomiting: adequately controlled Pain: adequately controlled Airway Patency, RR, SpO2: stable & adequate BP & HR: stable & adequate Hydration State: stable & adequate Anesthetic Complications: no major complications apparent and Pt Satisfied with anesthetic care
--- NOTE | 2023-06-02 07:38 | Hospitalist Progress Note ---
Date of Service June 02, 2023 Assessment & Plan (1) Abdominal pain: Plan: Severe acute gangrenous cholecystitis 82 years old male with past medical history of dyslipidemia, BPH, fibromuscular dysplasia, tremors, hearing loss, tension headache presented to the ER with excruciating abdominal pain. Received IVF, IV Morphine, sulcrafate, IV Zofran, and PPI in the ER CT abd/pelvis showed Gallbladder appears distended and demonstrates trace pericholecystic fluid/inflammatory change on the same day abdomen and pelvis CT. This raises the possibility of an early acute cholecystitis. KUB showed Nonobstructive bowel gas pattern. Moderate well-formed stool within the proximal colon. Lipase normal and LFT wnl Consulted general surgery and pt underwent cholecystectomy on 06/01/23 cont. abx - zosyn Continue pain management with IV morphine and IV Tylenol Continue gentle fluid hydration Will monitor electrolytes advance to clear liquids Elevated tbili - current 2.7 - cont. to monitor, hepatic panel ordered for tmrw - discussed w/ surgery Hyperglycemia current Hba1c 6.6% BPH resume Flomax and Proscar Dyslipidemia resume statin ?Fibromuscular dysplasia Will resume aspirin and statin once able to take PO Outpatient follow-up with neurology DVT prophylaxis SCD for now a Consider subcu heparin postop when bleeding stable. CODE STATUS full code Admission and Anticipated Discharge Date Admission Date: June 01, 2023 Subjective Pt seen in follow up of acute cholecystitis, now s/p surgery tbili up at 2.7 today - discussed with surgery - will cont. to monitor pt currently laying in bed in NAD, says pain is well controlled no fever, chills, chest pain, shortness of breath Not passing flatus nor moving bowels Review of Systems Review of Systems: All systems reviewed & are unremarkable except as noted in Subjective Physical Exam Physical Exam: General- WD/WN elderly M in NAD Head- atraumatic Eyes- PERRL, EOMI ENT- decreased hearing function Neck- supple, no JVD Lungs- clear to auscultation Heart- regular rhythm Abdomen- soft, +mildly distended,+bowel sound, minimally tender to palp. Extremities- no calf tenderness Neuro- alert, oriented x 3; PERRL, EOMI; no facial palsy; no dysarthria, +RUE tremor Skin- warm & dry Results & Data Results & Data Vital Signs (Past 12 Hours) Vital Signs Temp Pulse Resp BP Pulse Ox O2 Del Method O2 Flow Rate 06/02/23 02:52 36.5 C 58 L 16 111/54 L 94 Room Air 06/01/23 23:36 36.9 C 62 18 129/63 93 Room Air 06/01/23 20:25 37 C 52 L 16 122/60 97 Nasal Cannula 2 06/01/23 20:16 37.6 C H 63 18 127/68 97 Nasal Cannula 2 Laboratory Results 06/02/23 06/01/23 Range/Units 07:39 13:45 WBC 10.58 (4.8-10.8) K/ul RBC 3.86 L (4.70-6.10) M/uL Hgb 12.5 L (14.0-18.0) g/dl Hct 36.2 L (42.0-52.0) % MCV 93.8 (80.0-100.0) fL MCH 32.4 (25.0-34.0) pg MCHC 34.5 (32.0-36.0) g/dL RDW Std Deviation 43.4 (36.4-46.3) fL RDW Coeff of Titi 12.7 (11.5-14.5) % Plt Count 173 (130-400) K/uL MPV 10.8 (9.4-12.4) fL Sodium 138 (136-145) mmol/L Potassium 4.4 (3.5-5.1) mmol/L Chloride 107 (98-107) mmol/L Carbon Dioxide 26 (21-32) mmol/L Anion Gap 5 (3-11) BUN 14 (6-23) mg/dl Creatinine 0.85 (0.6-1.4) mg/dl Est Cr Clr Drug Dosing 62.6 ml/min Est GFR ( Amer) 94.0 ml/min Est GFR (Non-Af Amer) 81.1 ml/min BUN/Creatinine Ratio 16.5 (10-20) Glucose 124 H (70-99(Fasting)) mg/dl Estimat Average Glucose 143 mg/dl Hemoglobin A1c 6.6 H (4.5-5.6) % Calcium 8.5 L (8.6-10.3) mg/dl Phosphorus 2.8 (2.5-4.9) mg/dl Magnesium 2.1 (1.7-2.4) mg/dl Total Bilirubin 2.7 H D (0.2-1.0) mg/dl AST 49 H (13-39) U/L ALT 47 (7-52) U/L Alkaline Phosphatase 50 (34-104) U/L Total Protein 5.7 L (6.0-8.3) gm/dl Albumin 3.6 (3.4-5.0) gm/dl Globulin 2.1 L (2.5-4.0) gm/dl Albumin/Globulin Ratio 1.7 (0.9-2) Urine Color Yellow Urine Appearance Clear (Clear) Urine pH 5.0 (4.5-7.5) Ur Specific [place] 1.040 H (1.000-1.030) Urine Protein Negative (Negative) Urine Glucose (UA) Trace H (Negative) Urine Ketones Negative (Negative) Urine Blood 1+ H (Negative) Urine Nitrite Negative (Negative) Urine Bilirubin Negative (Negative) Urine Urobilinogen Negative (Negative) Ur Leukocyte Esterase Negative (Negative) Urine WBC (Auto) 1-5 (0-5) /hpf Urine RBC (Auto) 5-10 H (0-4) /hpf U Hyaline Cast (Auto) 1-5 (0-5) /lpf U Epithel Cells (Auto) 5-10 H (0-5) /lpf Urine Bacteria (Auto) Negative (Negative) Medications Administered Current Inpatient Medications Acetaminophen (Ofirmev) 1,000 mg in 100 mls @ 400 mls/hr IV Q8H PRN PRN Reason: Mild-Mod Pain (Scale 1-6) Stop: 06/04/23 08:46 Last Infusion: 06/01/23 18:28 Dose: Infused Sodium Chloride (Nss) 1,000 mls @ 70 mls/hr IV .[id number] [facility] Stop: 06/02/23 13:21 Last Admin: 06/01/23 21:03 Dose: 70 mls/hr Lactated Ringer's (Lr) 1,000 mls @ 15 mls/hr IV .Q24H WONG Stop: 07/01/23 13:44 Last Infusion: 06/01/23 14:23 Dose: Infused Morphine Sulfate (Morphine Sulfate 2 Mg/Ml Carp) 2 mg IV Q6H PRN PRN Reason: moderate to severe Pain Stop: 06/15/23 08:46 Last Admin: 06/01/23 08:55 Dose: 2 mg Ondansetron HCl (Ondansetron Inj 2 Mg/Ml 2 Ml Vial) 4 mg IV Q6H PRN PRN Reason: Nausea Stop: 07/01/23 08:46 Last Admin: 06/01/23 10:28 Dose: 4 mg Oxycodone/Acetaminophen (Oxycodone/Acetaminophen 5mg/325mg Tab) 1 tab PO Q4H PRN PRN Reason: MODERATE Pain (4,5,6) & Pre PT Stop: 06/15/23 17:45
[2023-06-02 08:12] LABS: Hematocrit (blood only) 36.2 % (42.0-52.0); Hemoglobin 12.5 g/dl (14.0-18.0); Mean Corpuscular Hemoglobin 32.4 pg (25.0-34.0); Mean Corpuscular Hgb Conc 34.5 g/dL (32.0-36.0); Mean Corpuscular Volume 93.8 fL (80.0-100.0); Mean Platelet Volume 10.8 fL (9.4-12.4); Platelet Count 173 K/uL (130-400); RDW Coefficient of Variation 12.7 % (11.5-14.5); RDW Standard Deviation 43.4 fL (36.4-46.3); Red Blood Count 3.86 M/uL (4.70-6.10); White Blood Count 10.58 K/ul (4.8-10.8)
[2023-06-02 08:25] LABS: Albumin Globulin Ratio 1.7 (0.9-2); Albumin Level 3.6 gm/dl (3.4-5.0); BUN Creatinine Ratio 16.5 (10-20); Bilirubin,Total 2.7 mg/dl (0.2-1.0); Calcium 8.5 mg/dl (8.6-10.3); Creatinine Clr Calc Pharmacy 62.6 ml/min; Est GFR (Non-African American) 81.1 ml/min; Globulin 2.1 gm/dl (2.5-4.0); Magnesium 2.1 mg/dl (1.7-2.4); Phosphorus 2.8 mg/dl (2.5-4.9); Potassium 4.4 mmol/L (3.5-5.1); Total Protein 5.7 gm/dl (6.0-8.3)
[2023-06-02 08:37] LABS: Estimated Average Glucose 143 mg/dl; Hemoglobin A1C 6.6 % (4.5-5.6)
[2023-06-02] MEDS ORDERED: PIPER/TAZO 4.5g in D5W MINI-B 100 ML IV ONE (10:15)
--- NOTE | 2023-06-02 11:57 | Surgery Progress Note ---
Date of Service June 02, 2023 Assessment & Plan (1) Acute cholecystitis: Plan POD #1 s/p laparoscopic cholecystectomy for severe acute cholecystitis Doing fairly well, continue clears Slight increase in total bilirubin; recheck full hepatic panel tomorrow Monitor LEANN drain output Encourage ambulation, incentive spirometry If continued elevation of LFTs tomorrow will require MRCP, possible ERCP Admission and Anticipated Discharge Date Admission Date: June 01, 2023 Subjective POD #1 s/p laparoscopic cholecystectomy for severe acute gangrenous cholecystitis. Doing fairly well. Minimal pain. No fevers or chills. Tolerating clears. Physical Exam Physical Exam: AFVSS NAD, A&O x 3 Abdomen: Soft, mild distention Mild tenderness to palpation right upper quadrant Incisions C/D/I with Dermabond Results & Data Vital Signs (Past 12 Hours) Vital Signs Temp Pulse Resp BP Pulse Ox O2 Del Method 06/02/23 11:43 36.6 C 66 16 119/60 92 Room Air 06/02/23 08:12 36.6 C 54 L 16 111/57 L 92 Room Air 06/02/23 02:52 36.5 C 58 L 16 111/54 L 94 Room Air Laboratory Results 06/02/23 06/01/23 Range/Units 07:39 13:45 WBC 10.58 (4.8-10.8) K/ul RBC 3.86 L (4.70-6.10) M/uL Hgb 12.5 L (14.0-18.0) g/dl Hct 36.2 L (42.0-52.0) % MCV 93.8 (80.0-100.0) fL MCH 32.4 (25.0-34.0) pg MCHC 34.5 (32.0-36.0) g/dL RDW Std Deviation 43.4 (36.4-46.3) fL RDW Coeff of Titi 12.7 (11.5-14.5) % Plt Count 173 (130-400) K/uL MPV 10.8 (9.4-12.4) fL Sodium 138 (136-145) mmol/L Potassium 4.4 (3.5-5.1) mmol/L Chloride 107 (98-107) mmol/L Carbon Dioxide 26 (21-32) mmol/L Anion Gap 5 (3-11) BUN 14 (6-23) mg/dl Creatinine 0.85 (0.6-1.4) mg/dl Est Cr Clr Drug Dosing 62.6 ml/min Est GFR ( Amer) 94.0 ml/min Est GFR (Non-Af Amer) 81.1 ml/min BUN/Creatinine Ratio 16.5 (10-20) Glucose 124 H (70-99(Fasting)) mg/dl Estimat Average Glucose 143 mg/dl Hemoglobin A1c 6.6 H (4.5-5.6) % Calcium 8.5 L (8.6-10.3) mg/dl Phosphorus 2.8 (2.5-4.9) mg/dl Magnesium 2.1 (1.7-2.4) mg/dl Total Bilirubin 2.7 H D (0.2-1.0) mg/dl AST 49 H (13-39) U/L ALT 47 (7-52) U/L Alkaline Phosphatase 50 (34-104) U/L Total Protein 5.7 L (6.0-8.3) gm/dl Albumin 3.6 (3.4-5.0) gm/dl Globulin 2.1 L (2.5-4.0) gm/dl Albumin/Globulin Ratio 1.7 (0.9-2) Urine Color Yellow Urine Appearance Clear (Clear) Urine pH 5.0 (4.5-7.5) Ur Specific [place] 1.040 H (1.000-1.030) Urine Protein Negative (Negative) Urine Glucose (UA) Trace H (Negative) Urine Ketones Negative (Negative) Urine Blood 1+ H (Negative) Urine Nitrite Negative (Negative) Urine Bilirubin Negative (Negative) Urine Urobilinogen Negative (Negative) Ur Leukocyte Esterase Negative (Negative) Urine WBC (Auto) 1-5 (0-5) /hpf Urine RBC (Auto) 5-10 H (0-4) /hpf U Hyaline Cast (Auto) 1-5 (0-5) /lpf U Epithel Cells (Auto) 5-10 H (0-5) /lpf Urine Bacteria (Auto) Negative (Negative)
[2023-06-02] MEDS: PIPERACILLIN/TAZOBACTAM 4.5 GM in DEXTROSE 5% MINI-B 100 ML IV SCH ×2 (15:32→22:16)
[2023-06-02] MEDS: ACETAMINOPHEN 1,000 MG/100 ML VIAL IV PRN (22:06)
[2023-06-03 05:58] LABS: Hematocrit (blood only) 38.5 % (42.0-52.0); Hemoglobin 12.9 g/dl (14.0-18.0); Mean Corpuscular Hemoglobin 31.9 pg (25.0-34.0); Mean Corpuscular Hgb Conc 33.5 g/dL (32.0-36.0); Mean Corpuscular Volume 95.1 fL (80.0-100.0); Mean Platelet Volume 10.1 fL (9.4-12.4); Platelet Count 173 K/uL (130-400); RDW Coefficient of Variation 12.5 % (11.5-14.5); RDW Standard Deviation 43.5 fL (36.4-46.3); Red Blood Count 4.05 M/uL (4.70-6.10); White Blood Count 6.84 K/ul (4.8-10.8)
[2023-06-03] MEDS: PIPERACILLIN/TAZOBACTAM 4.5 GM in DEXTROSE 5% MINI-B 100 ML IV SCH ×3 (06:19→22:16)
[2023-06-03] MEDS: FINASTERIDE 5 MG TAB PO SCH (07:50)
[2023-06-03] MEDS: TAMSULOSIN HCL 0.4 MG CAP PO SCH (07:50)
[2023-06-03] MEDS: ROSUVASTATIN CALCIUM 10 MG TAB PO SCH (07:50)
[2023-06-03 07:52] LABS: Albumin Globulin Ratio 1.6 (0.9-2); Albumin Level 3.7 gm/dl (3.4-5.0); BUN Creatinine Ratio 15.6 (10-20); Bilirubin Direct 0.4 mg/dl (0-0.2); Bilirubin,Total 2.3 mg/dl (0.2-1.0); Calcium 8.6 mg/dl (8.6-10.3); Creatinine Clr Calc Pharmacy 55.5 ml/min; Est GFR (Non-African American) 73.3 ml/min; Globulin 2.3 gm/dl (2.5-4.0); Magnesium 2.2 mg/dl (1.7-2.4); Phosphorus 2.7 mg/dl (2.5-4.9); Potassium 3.8 mmol/L (3.5-5.1)
--- NOTE | 2023-06-03 08:17 | Hospitalist Progress Note ---
Date of Service June 03, 2023 Assessment & Plan (1) Abdominal pain: Plan: Severe acute gangrenous cholecystitis 82 years old male with past medical history of dyslipidemia, BPH, fibromuscular dysplasia, tremors, hearing loss, tension headache presented to the ER with excruciating abdominal pain. Received IVF, IV Morphine, sulcrafate, IV Zofran, and PPI in the ER CT abd/pelvis showed Gallbladder appears distended and demonstrates trace pericholecystic fluid/inflammatory change on the same day abdomen and pelvis CT. This raises the possibility of an early acute cholecystitis. KUB showed Nonobstructive bowel gas pattern. Moderate well-formed stool within the proximal colon. Lipase normal and LFT wnl Consulted general surgery and pt underwent cholecystectomy on 06/01/23 cont. abx - zosyn Continue pain management with IV morphine and IV Tylenol Continue gentle fluid hydration Will monitor electrolytes advance clear liquids -> full liquids Elevated tbili - tbili 2.7 -> 2.3 now - cont. to monitor, hepatic panel ordered for tmrw - discussed w/ surgery Hyperglycemia current Hba1c 6.6% BPH resume Flomax and Proscar Dyslipidemia resume statin ?Fibromuscular dysplasia plan to resume aspirin and statin once able to take PO statin resumed, holding ASA for now - discussed w/ surgery Outpatient follow-up with neurology DVT prophylaxis SCD for now a Consider subcu heparin postop when bleeding stable. CODE STATUS full code Admission and Anticipated Discharge Date Admission Date: June 01, 2023 Subjective Pt seen in follow up of acute cholecystitis, now s/p surgery tbili up at 2.7 yesterday - discussed with surgery - cont. to monitor - today down to 2.3 pt currently sitting up in bed in NAD, says pain is well controlled no fever, chills, chest pain, shortness of breath Not passing flatus nor moving bowels Review of Systems Review of Systems: All systems reviewed & are unremarkable except as noted in Subjective Physical Exam Physical Exam: General- WD/WN elderly M in NAD Head- atraumatic Eyes- PERRL, EOMI ENT- decreased hearing function Neck- supple, no JVD Lungs- clear to auscultation Heart- regular rhythm Abdomen- soft, +mildly distended,+bowel sound, mildly tender to palp. Extremities- no calf tenderness Neuro- alert, oriented x 3; PERRL, EOMI; no facial palsy; no dysarthria, +RUE tremor Skin- warm & dry Results & Data Results & Data Vital Signs (Past 12 Hours) Vital Signs Temp Pulse Resp BP Pulse Ox O2 Del Method 06/03/23 07:17 36.3 C L 52 L 16 133/66 90 Room Air 06/02/23 22:14 36.6 C 58 L 16 161/68 H 94 Room Air Laboratory Results 06/03/23 06/02/23 Range/Units 05:37 07:39 WBC 6.84 (4.8-10.8) K/ul RBC 4.05 L (4.70-6.10) M/uL Hgb 12.9 L (14.0-18.0) g/dl Hct 38.5 L (42.0-52.0) % MCV 95.1 (80.0-100.0) fL MCH 31.9 (25.0-34.0) pg MCHC 33.5 (32.0-36.0) g/dL RDW Std Deviation 43.5 (36.4-46.3) fL RDW Coeff of Titi 12.5 (11.5-14.5) % Plt Count 173 (130-400) K/uL MPV 10.1 (9.4-12.4) fL Sodium 140 138 (136-145) mmol/L Potassium 3.8 4.4 (3.5-5.1) mmol/L Chloride 107 107 (98-107) mmol/L Carbon Dioxide 27 26 (21-32) mmol/L Anion Gap 6 5 (3-11) BUN 15 14 (6-23) mg/dl Creatinine 0.96 0.85 (0.6-1.4) mg/dl Est Cr Clr Drug Dosing 55.5 62.6 ml/min Est GFR ( Amer) 85.0 94.0 ml/min Est GFR (Non-Af Amer) 73.3 81.1 ml/min BUN/Creatinine Ratio 15.6 16.5 (10-20) Glucose 99 124 H (70-99(Fasting)) mg/dl Estimat Average Glucose 143 mg/dl Hemoglobin A1c 6.6 H (4.5-5.6) % Calcium 8.6 8.5 L (8.6-10.3) mg/dl Phosphorus 2.7 2.8 (2.5-4.9) mg/dl Magnesium 2.2 2.1 (1.7-2.4) mg/dl Total Bilirubin 2.3 H 2.7 H D (0.2-1.0) mg/dl Direct Bilirubin 0.4 H (0-0.2) mg/dl AST 36 49 H (13-39) U/L ALT 44 47 (7-52) U/L Alkaline Phosphatase 58 50 (34-104) U/L Total Protein 6.0 5.7 L (6.0-8.3) gm/dl Albumin 3.7 3.6 (3.4-5.0) gm/dl Globulin 2.3 L 2.1 L (2.5-4.0) gm/dl Albumin/Globulin Ratio 1.6 1.7 (0.9-2) Medications Administered Current Inpatient Medications Finasteride (Finasteride 5 Mg Tab) 5 mg PO [facility] Stop: 07/03/23 08:59 Last Admin: 06/03/23 07:50 Dose: 5 mg Acetaminophen (Ofirmev) 1,000 mg in 100 mls @ 400 mls/hr IV Q8H PRN PRN Reason: Mild-Mod Pain (Scale 1-6) Stop: 06/04/23 08:46 Last Infusion: 06/02/23 22:21 Dose: Infused Piperacillin Sod/Tazobactam (Sod 4.5 gm/ Dextrose) 100 mls @ 25 mls/hr IV Q8H [facility]; Protocol Stop: 06/06/23 14:59 Last Admin: 06/03/23 06:19 Dose: 25 mls/hr Morphine Sulfate (Morphine Sulfate 2 Mg/Ml Carp) 2 mg IV Q6H PRN PRN Reason: moderate to severe Pain Stop: 06/15/23 08:46 Last Admin: 06/01/23 08:55 Dose: 2 mg Ondansetron HCl (Ondansetron Inj 2 Mg/Ml 2 Ml Vial) 4 mg IV Q6H PRN PRN Reason: Nausea Stop: 07/01/23 08:46 Last Admin: 06/01/23 10:28 Dose: 4 mg Oxycodone/Acetaminophen (Oxycodone/Acetaminophen 5mg/325mg Tab) 1 tab PO Q4H PRN PRN Reason: MODERATE Pain (4,5,6) & Pre PT Stop: 06/15/23 17:45 Rosuvastatin Calcium (Rosuvastatin Calcium 10 Mg Tab) 10 mg PO [facility] Stop: 07/03/23 08:59 Last Admin: 06/03/23 07:50 Dose: 10 mg Tamsulosin HCl (Tamsulosin Hcl 0.4 Mg Cap) 0.4 mg PO [facility] Stop: 07/03/23 08:59 Last Admin: 06/03/23 07:50 Dose: 0.4 mg
--- NOTE | 2023-06-03 11:46 | Surgery Progress Note ---
Date of Service June 03, 2023 Assessment & Plan (1) Acute cholecystitis: Plan: POD#2 lap cholecystectomy. Overall doing well. Will advance to full liquids. OK to advance diet as tolerated. LFT's improving. T. Bili down to 2.3. LEANN is bloody tinged - will monitor. Admission and Anticipated Discharge Date Admission Date: June 01, 2023 Subjective POD#1 lap christopher for severe acute cholecystitis Doing well. Hungry. Intermittent pain. Physical Exam Constitutional: WD/WN, vitals as above Respiratory: normal respiratory effort, lungs clear to auscultation Cardiovascular: RRR, no murmur, no edema Gastrointestinal (Abdomen): Inspection/Auscultation: abdomen normal to inspection, + abdomen distended (mild), normal bowel sounds, + abdominal surgical incision (clean) and + abdominal surgical drain present (bloody tinged) Percussion/Palpation: abdomen soft; abdomen nontender Neurologic: awake tremor Results & Data Vital Signs (Past 12 Hours) Vital Signs Temp Pulse Resp BP Pulse Ox O2 Del Method 06/03/23 07:17 36.3 C L 52 L 16 133/66 90 Room Air Laboratory Results Abnormal lab results 06/03/23 Range/Units 05:37 RBC 4.05 L (4.70-6.10) M/uL Hgb 12.9 L (14.0-18.0) g/dl Hct 38.5 L (42.0-52.0) % Total Bilirubin 2.3 H (0.2-1.0) mg/dl Direct Bilirubin 0.4 H (0-0.2) mg/dl Globulin 2.3 L (2.5-4.0) gm/dl
[2023-06-04] MEDS: PIPERACILLIN/TAZOBACTAM 4.5 GM in DEXTROSE 5% MINI-B 100 ML IV SCH ×2 (06:01→16:11)
[2023-06-04 06:32] LABS: Hematocrit (blood only) 34.1 % (42.0-52.0); Hemoglobin 11.6 g/dl (14.0-18.0); Mean Corpuscular Volume 94.2 fL (80.0-100.0); Mean Platelet Volume 9.9 fL (9.4-12.4); Platelet Count 184 K/uL (130-400); RDW Coefficient of Variation 12.2 % (11.5-14.5); RDW Standard Deviation 42.4 fL (36.4-46.3); Red Blood Count 3.62 M/uL (4.70-6.10); White Blood Count 6.67 K/ul (4.8-10.8)
[2023-06-04 06:35] LABS: Albumin Globulin Ratio 1.8 (0.9-2); Albumin Level 3.5 gm/dl (3.4-5.0); BUN Creatinine Ratio 14.4 (10-20); Bilirubin Direct 0.4 mg/dl (0-0.2); Bilirubin,Total 1.9 mg/dl (0.2-1.0); Calcium 8.5 mg/dl (8.6-10.3); Creatinine Clr Calc Pharmacy 59.2 ml/min; Est GFR (African American) 91.9 ml/min; Est GFR (Non-African American) 79.3 ml/min; Magnesium 2.1 mg/dl (1.7-2.4); Phosphorus 3.4 mg/dl (2.5-4.9); Potassium 3.8 mmol/L (3.5-5.1); Total Protein 5.5 gm/dl (6.0-8.3)
[2023-06-04] MEDS: FINASTERIDE 5 MG TAB PO SCH (08:13)
[2023-06-04] MEDS: ROSUVASTATIN CALCIUM 10 MG TAB PO SCH (08:13)
[2023-06-04] MEDS: TAMSULOSIN HCL 0.4 MG CAP PO SCH (08:13)
--- NOTE | 2023-06-04 10:32 | Surgery Progress Note ---
Date of Service June 04, 2023 Assessment & Plan (1) Acute cholecystitis: Plan: POD#3 lap cholecystectomy. Overall doing well. LFT's continue improving. T. Bili down to 1.7. LEANN is bloody tinged - will keep for now October d/c to home today - need appt on Sunday with nurse for drain removal in clinic drain teaching for home Admission and Anticipated Discharge Date Admission Date: June 01, 2023 Subjective doing well. tolerating diet; no n/v. T bili decreased to 1.7 Physical Exam Physical Exam: AFVSS NAD, A&O x 3 Abdomen: Soft, mild distention Mild tenderness to palpation right upper quadrant Incisions C/D/I with Dermabond LEANN serosanguinous Results & Data Vital Signs (Past 12 Hours) Vital Signs Temp Pulse Resp BP Pulse Ox O2 Del Method 06/04/23 06:09 36.5 C 52 L 16 128/69 95 Room Air 06/03/23 22:51 36.6 C 78 18 130/69 96 Room Air
[2023-06-04] MEDS ORDERED: bisacodyL 5 MG TABEC PO ONE (12:08)
--- NOTE | 2023-06-04 14:18 | Discharge Summary ---
Date of Service June 04, 2023 Admission HPI Per Admitting Provider 82 years old male with past medical history of dyslipidemia, BPH, fibromuscular dysplasia, tremors, hearing loss, tension headache presented to the ER with excruciating abdominal pain. Daughter at bedside help with the history. Patient said pain started last night after dinner. He said the pain started in the epigastric area then radiated to his back. He said that now the pain seems to be across the abdomen. Abdominal pain associated with nausea. Described the pain as constant, grade 10 out of the 10 and his abdominal feel distended. He said that he never had this pain before. He said he has not had a bowel movement for the last few days. He said he usually takes stool softener to help him with bowel movement. He was given morphine IV in the ER that helped with the pain. Daughter said he is a [place], very active and does not need assistance to ambulate. Denies any chest pain, palpitation, dizziness and shortness of breath. Admission Exam Per Admitting Provider General- No acute distress Head- atraumatic Eyes- PERRL, EOMI, ENT- decrease hearing function Neck- supple, no JVD Lungs- clear to auscultation Heart- regular rhythm Abdomen- +abdominal pain, +distended, hypoactive bowel sound Extremities- no calf tenderness Neuro- alert, oriented x 3; PERRL, EOMI; no facial palsy; no dysarthria, +RUE tremor Skin- warm & dry Principal Diagnosis Severe acute gangrenous cholecystitis Elevated total bilirubin Hyperglycemia BPH Dyslipidemia Discharge Exam General- No acute distress Head- atraumatic Eyes- PERRL, EOMI, ENT- decrease hearing function Neck- supple, no JVD Lungs- clear to auscultation Heart- regular rhythm Abdomen- +surgical incision, LEANN drain in place, + surgical dressing Extremities- no calf tenderness Neuro- alert, oriented x 3; PERRL, EOMI; no facial palsy; no dysarthria, +RUE tremor Skin- warm & dry Discharge Data Allergies Allergy/AdvReac Type Severity Reaction Status Date / Time No Known Allergies Allergy Verified 06/01/23 00:04 Consultations 06/01/23 06:56 ED Decision to Admit Stat 06/01/23 08:47 Consult General Surgery Routine Procedures Performed Operation Date: 06/01/23 12:25 Actual Procedures p Laparoscopic Cholecystectomy - Isaias Godinez MD Ordered Studies 06/01/23 00:28 CT abd pelvis IV con only Stat 06/01/23 07:33 US gallbladder Stat Laboratory Results WBC 4.91 K/ul (4.8-10.8) 06/05/23 05:45 RBC 3.79 M/uL (4.70-6.10) L 06/05/23 05:45 Hgb 12.3 g/dl (14.0-18.0) L 06/05/23 05:45 Hct 35.6 % (42.0-52.0) L 06/05/23 05:45 MCV 93.9 fL (80.0-100.0) 06/05/23 05:45 MCH 32.5 pg (25.0-34.0) 06/05/23 05:45 MCHC 34.6 g/dL (32.0-36.0) 06/05/23 05:45 RDW Std Deviation 42.4 fL (36.4-46.3) 06/05/23 05:45 RDW Coeff of Titi 12.2 % (11.5-14.5) 06/05/23 05:45 Plt Count 217 K/uL (130-400) 06/05/23 05:45 MPV 9.8 fL (9.4-12.4) 06/05/23 05:45 Immature Gran % (Auto) 0.2 % 06/01/23 00:30 Neut % (Auto) 65.2 % 06/01/23 00:30 Lymph % (Auto) 25.2 % 06/01/23 00:30 Bennett % (Auto) 7.9 % 06/01/23 00:30 Eos % (Auto) 1.3 % 06/01/23 00:30 Baso % (Auto) 0.2 % 06/01/23 00:30 Neut # (Auto) 3.95 K/uL (1.40-6.50) 06/01/23 00:30 Lymph # (Auto) 1.53 K/uL (1.20-3.40) 06/01/23 00:30 Bennett # (Auto) 0.48 K/uL (0.11-0.59) 06/01/23 00:30 Eos # (Auto) 0.08 K/uL (0.00-0.50) 06/01/23 00:30 Baso # (Auto) 0.01 K/uL (0.00-0.20) 06/01/23 00:30 Immature Gran # (Auto) 0.01 K/uL (0.01-0.20) 06/01/23 00:30 Sodium 140 mmol/L (136-145) 06/05/23 05:45 Potassium 4.0 mmol/L (3.5-5.1) 06/05/23 05:45 Chloride 106 mmol/L (98-107) 06/05/23 05:45 Carbon Dioxide 28 mmol/L (21-32) 06/05/23 05:45 Anion Gap 6 (3-11) 06/05/23 05:45 BUN 9 mg/dl (6-23) 06/05/23 05:45 Creatinine 0.75 mg/dl (0.6-1.4) 06/05/23 05:45 Est Cr Clr Drug Dosing 71.0 ml/min 06/05/23 05:45 Est GFR ( Amer) 99.0 ml/min 06/05/23 05:45 Est GFR (Non-Af Amer) 85.4 ml/min 06/05/23 05:45 BUN/Creatinine Ratio 12.0 (10-20) 06/05/23 05:45 Glucose 109 mg/dl (70-99(Fasting)) H 06/05/23 05:45 Estimat Average Glucose 143 mg/dl 06/02/23 07:39 Hemoglobin A1c 6.6 % (4.5-5.6) H 06/02/23 07:39 Calcium 8.9 mg/dl (8.6-10.3) 06/05/23 05:45 Phosphorus 3.5 mg/dl (2.5-4.9) 06/05/23 05:45 Magnesium 1.9 mg/dl (1.7-2.4) 06/05/23 05:45 Total Bilirubin 1.4 mg/dl (0.2-1.0) H 06/05/23 05:45 Direct Bilirubin 0.2 mg/dl (0-0.2) 06/05/23 05:45 AST 32 U/L (13-39) 06/05/23 05:45 ALT 48 U/L (7-52) 06/05/23 05:45 Alkaline Phosphatase 72 U/L (34-104) 06/05/23 05:45 Troponin I High Sens 5.5 pg/ml (0-20) 06/01/23 02:40 Total Protein 5.6 gm/dl (6.0-8.3) L 06/05/23 05:45 Albumin 3.5 gm/dl (3.4-5.0) 06/05/23 05:45 Globulin 2.1 gm/dl (2.5-4.0) L 06/05/23 05:45 Albumin/Globulin Ratio 1.7 (0.9-2) 06/05/23 05:45 Lipase 11 U/L (11-82) 06/01/23 00:30 Urine Color Yellow 06/01/23 13:45 Urine Appearance Clear (Clear) 06/01/23 13:45 Urine pH 5.0 (4.5-7.5) 06/01/23 13:45 Ur Specific Fenton 1.040 (1.000-1.030) H 06/01/23 13:45 Urine Protein Negative (Negative) 06/01/23 13:45 Urine Glucose (UA) Trace (Negative) H 06/01/23 13:45 Urine Ketones Negative (Negative) 06/01/23 13:45 Urine Blood 1+ (Negative) H 06/01/23 13:45 Urine Nitrite Negative (Negative) 06/01/23 13:45 Urine Bilirubin Negative (Negative) 06/01/23 13:45 Urine Urobilinogen Negative (Negative) 06/01/23 13:45 Ur Leukocyte Esterase Negative (Negative) 06/01/23 13:45 Urine WBC (Auto) 1-5 /hpf (0-5) 06/01/23 13:45 Urine RBC (Auto) 5-10 /hpf (0-4) H 06/01/23 13:45 U Hyaline Cast (Auto) 1-5 /lpf (0-5) 06/01/23 13:45 U Epithel Cells (Auto) 5-10 /lpf (0-5) H 06/01/23 13:45 Urine Bacteria (Auto) Negative (Negative) 06/01/23 13:45 Impressions KUB X-Ray 05/31/23 23:56 KUB HISTORY: burning epigastric pain COMPARISON: Abdomen and pelvis CT 06/01/2023. FINDINGS: The bowel gas pattern is unremarkable. There are no dilated loops of small bowel to suggest an obstruction. The patient's known left renal stone is not well visualized due to the overlying bowel gas. No pneumoperitoneum or pneumatosis. Moderate well-formed stool within the proximal colon. Mild interstitial thickening at the lungs. The heart is enlarged. It should be noted that the gallbladder appears distended and demonstrates trace pericholecystic fluid/inflammatory change on the same day abdomen and pelvis CT. This raises the possibility of an early acute cholecystitis. Clinical correlation recommended. IMPRESSION: 1. Nonobstructive bowel gas pattern. 2. It should be noted that the gallbladder appears distended and demonstrates trace pericholecystic fluid/inflammatory change on the same day abdomen and pelvis CT. This raises the possibility of an early acute cholecystitis. Clinical correlation recommended. 3. This report was called/faxed to the emergency department following dictation. ACT 112: Negative or not required by law. Electronically signed by: Madi Salamanca M.D. 06/01/2023 7:00 AM Abdomen/Pelvis CT 06/01/23 00:28 Exam(s): CT ABDOMEN + PELVIS With Contrast IV Amt: 90 ml opti 320 EXAM: CT Abdomen and Pelvis With Intravenous Contrast CLINICAL HISTORY: Reason for exam: abdominal pain. TECHNIQUE: Axial computed tomography images of the abdomen and pelvis with intravenous contrast. CTDI is 15.61 mGy and DLP is 761.53 mGy-cm. Automated exposure control was utilized for the study. A dose lowering technique was utilized adhering to the principles of ALARA. CONTRAST: Patient received 90 ml opti 320 of IV contrast COMPARISON: 01/21/18 FINDINGS: Lung bases: Discoid atelectasis seen in the lung bases. ABDOMEN: Liver: Unremarkable. No mass. Gallbladder and bile ducts: Unremarkable. No calcified stones. No ductal dilation. Pancreas: There is fatty infiltration of the pancreas. No ductal dilation. Spleen: Unremarkable. No splenomegaly. Adrenals: Unremarkable. No mass. Kidneys and ureters: There is 8 mm diameter calculus seen in the left kidney. 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 No hydronephrosis. Stomach and bowel: Left inguinal hernia containing a loop of nondilated sigmoid colon. Generous amount of air seen in the right and transverse colon. The tip of the cecum is in the midline. No mucosal thickening. PELVIS: Appendix: Appendix is not visualized. No findings to suggest acute appendicitis. Bladder: Unremarkable. No mass. Reproductive: Moderate prostatomegaly. ABDOMEN and PELVIS: Intraperitoneal space: Unremarkable. No free air. No significant fluid collection. Bones/joints: No acute fracture. No dislocation. Soft tissues: See above. Vasculature: Unremarkable. No abdominal aortic aneurysm. Lymph nodes: Unremarkable. No enlarged lymph nodes. IMPRESSION: 1. Generous amount of air in the right and transverse colon which could be from ileus. 2. Horseshoe kidney and left nephrolithiasis. No hydronephrosis Electronically signed by: Andrey Lindo MD 06/01/23 06:09 AM Gallbladder Ultrasound 06/01/23 07:33 ABDOMINAL ULTRASOUND, RIGHT UPPER QUADRANT HISTORY: epigastric pain. COMPARISON: Abdomen and pelvis CT 06/01/2023. FINDINGS: Pancreas: The pancreatic tail is obscured by overlying bowel gas. The remaining portions of the pancreas are within normal limits. Liver: Unremarkable. Gallbladder: The gallbladder is distended and contains multiple small gallstones. There is mild gallbladder wall thickening measuring between 3 and 5 mm with trace pericholecystic fluid. A sonographic Martinez's sign cannot be adequately assessed due to the patient's on board pain medication. CBD: 5 mm. Right kidney: No hydronephrosis. IMPRESSION: Distended gallbladder containing multiple small stones with mild gallbladder wall thickening. This is suspicious for an acute cholecystitis. Surgical consultation recommended. ACT 112: Negative or not required by law. Electronically signed by: Madi Salamanca M.D. 06/01/2023 10:09 AM Hospital Course (1) Abdominal pain: Severe acute gangrenous cholecystitis 82 years old male with past medical history of dyslipidemia, BPH, fibromuscular dysplasia, tremors, hearing loss, tension headache presented to the ER with excruciating abdominal pain. Received IVF, IV Morphine, sulcrafate, IV Zofran, and PPI in the ER CT abd/pelvis showed Gallbladder appears distended and demonstrates trace pericholecystic fluid/inflammatory change on the same day abdomen and pelvis CT. This raises the possibility of an early acute cholecystitis. KUB showed Nonobstructive bowel gas pattern. Moderate well-formed stool within the proximal colon. Lipase normal and LFT wnl Consulted general surgery and pt underwent cholecystectomy on 06/01/23 Currently on IV Zosyn case discussed with surgery recommended to keep LEANN drain on discharge Will transition to PO augmentin for 5 days Pt has not required any narcotic, will advise to take tylenol prn for the pain Ok from surgical standpoint to discharge Diet advanced as tolerated Elevated tbili Tbili 2.7 -> 2.3 -->1.9 cont. to monitor, hepatic panel ordered for tmrw - discussed w/ surgery Hyperglycemia current Hba1c 6.6% Constipation Dulcolax and miralax given Once pt has a bowel movement, ok to discharge home BPH resume Flomax and Proscar Dyslipidemia resume statin ?Fibromuscular dysplasia plan to resume aspirin and statin once able to take PO Ok from surgery to resume aspirin Outpatient follow-up with neurology DVT prophylaxis SCD due to recent surgery CODE STATUS full code Disposition Plan to discharge home later Follow up with surgery on Sunday for LEANN removal Total Time Total Time Spent Total Time Spent (In Minutes): 35 minutes Discharge Plan Discharge Items Patient Disposition: Home - Self-Care Reason For Visit: ABDOMINAL PAIN Discharge Diagnosis: Acute cholecystitis Activity: Resume your previous activity Non-emergency contact: Primary Care Provider and Surgeon Call non-emergency contact if: you have any medication questions, your symptoms worsen, your pain is worsening, your temperature is above 101, your wound has increased redness, your wound has increased drainage and your wound pain has increased Follow-up/Referrals: Isaias Godinez MD [Physician] - (Date & Time 06/06/2023 1:00 PM Provider Isaias Godinez MD Department General Surgery, [facility] ) Eleni Jacobson DO [Primary Care Provider] - 06/07/23 9:00 am (Date & Time 06/07/2023 9:00 AM Provider Eleni Jacobson DO Department [facility] ) Diet: Low Fat Addtl Attending Provider Instructions: Follow up with your primary care provider 06/07/2023 @ 9:00 AM Eleni Jacobson DO Department [facility] Follow up with surgery 06/06/2023 @ 1:00 PM Isaias Godinez MD Department General Surgery, [facility] Discharge with LEANN drain No heavy lifting over 15 pounds for 3 weeks No strenuous activity until cleared by surgeon No submerging incisions underwater for 2 weeks (no swimming, bathing, hot tubs) but you may shower and gently clean the incisions with soap and water and pat dry. Walking and light activities encouraged daily to prevent blood clots from forming You may take extra strength Tylenol or ibuprofen as needed for pain. Recommend taking stool softener daily to help you move your bowel Will complete the course of the antibiotic with Augmentin Seek urgent medical attention if develops any sign of infection. Pending Studies at Discharge: No Stand-Alone Forms: My [facility], Smoking Cessation Medications and DC Order Prescriptions: New amoxicillin-pot clavulanate 875-125 mg tablet 1 tab PO Q12H Qty: 10 0RF acetaminophen [Acetaminophen Extra Strength] 500 mg tablet 500 mg PO Q6H PRN (Reason: pain) Qty: 30 0RF Continued tamsulosin 0.4 mg capsule 0.4 mg PO QAM finasteride 5 mg tablet 5 mg PO QAM aspirin 81 mg Tablet,Delayed Release (Dr/Ec) 81 mg PO DAILY rosuvastatin 10 mg tablet 10 mg PO QAM Discharge Orders: Discharge Order (Routine); Ordered 06/04/23 Ordered By: Herman Giles/Other Patient Handouts: A1C, Sarwat Linsdey Drain Tube Dc, Post Op Drain Emptying Steps Admission Data Admit Date/Time: 06/01/23 08:43 Attending Provider: Herman Tyler Admit Provider: Herman Tyler Primary Care Provider: Eleni Jacobson Other Providers: Carlos Carmona; Isaias Godinez; Herman Tyler Other Interventions: Discharge Summary Assessment (RN) Last Done: 06/05/23 09:01
[2023-06-04] MEDS: AMOXICILLIN/CLAVULANATE 875 MG TAB PO SCH (18:32)
[2023-06-04] MEDS ORDERED: POLYETHYLENE (MIRALAX) 17 GM PACK PO ONE (18:45)
[2023-06-05 06:32] LABS: Hematocrit (blood only) 35.6 % (42.0-52.0); Hemoglobin 12.3 g/dl (14.0-18.0); Mean Corpuscular Hemoglobin 32.5 pg (25.0-34.0); Mean Corpuscular Hgb Conc 34.6 g/dL (32.0-36.0); Mean Corpuscular Volume 93.9 fL (80.0-100.0); Mean Platelet Volume 9.8 fL (9.4-12.4); Platelet Count 217 K/uL (130-400); RDW Coefficient of Variation 12.2 % (11.5-14.5); RDW Standard Deviation 42.4 fL (36.4-46.3); Red Blood Count 3.79 M/uL (4.70-6.10); White Blood Count 4.91 K/ul (4.8-10.8)
[2023-06-05 07:00] LABS: Albumin Globulin Ratio 1.7 (0.9-2); Albumin Level 3.5 gm/dl (3.4-5.0); Bilirubin Direct 0.2 mg/dl (0-0.2); Bilirubin,Total 1.4 mg/dl (0.2-1.0); Calcium 8.9 mg/dl (8.6-10.3); Est GFR (Non-African American) 85.4 ml/min; Globulin 2.1 gm/dl (2.5-4.0); Magnesium 1.9 mg/dl (1.7-2.4); Phosphorus 3.5 mg/dl (2.5-4.9); Total Protein 5.6 gm/dl (6.0-8.3)
[2023-06-05] MEDS: FINASTERIDE 5 MG TAB PO SCH (08:15)
[2023-06-05] MEDS: ROSUVASTATIN CALCIUM 10 MG TAB PO SCH (08:15)
[2023-06-05] MEDS: AMOXICILLIN/CLAVULANATE 875 MG TAB PO SCH (08:15)
[2023-06-05] MEDS: TAMSULOSIN HCL 0.4 MG CAP PO SCH (08:15)
[2023-06-05] MEDS ORDERED: bisacodyL 5 MG TABEC PO ONE (08:23)
--- NOTE | 2023-06-05 09:47 | Hospitalist Progress Note ---
Date of Service June 04, 2023 Assessment & Plan (1) Abdominal pain: Plan: Severe acute gangrenous cholecystitis 82 years old male with past medical history of dyslipidemia, BPH, fibromuscular dysplasia, tremors, hearing loss, tension headache presented to the ER with excruciating abdominal pain. Received IVF, IV Morphine, sulcrafate, IV Zofran, and PPI in the ER CT abd/pelvis showed Gallbladder appears distended and demonstrates trace pericholecystic fluid/inflammatory change on the same day abdomen and pelvis CT. This raises the possibility of an early acute cholecystitis. KUB showed Nonobstructive bowel gas pattern. Moderate well-formed stool within the proximal colon. Lipase normal and LFT wnl Consulted general surgery and pt underwent cholecystectomy on 06/01/23 Currently on IV Zosyn case discussed with surgery recommended to keep LEANN drain on discharge Will transition to PO augmentin for 5 days Pt has not required any narcotic, will advise to take tylenol prn for the pain Ok from surgical standpoint to discharge Diet advanced as tolerated Elevated tbili Tbili 2.7 -> 2.3 -->1.9 cont. to monitor, hepatic panel ordered for tmrw - discussed w/ surgery Hyperglycemia current Hba1c 6.6% Constipation Dulcolax and miralax given Once pt has a bowel movement, ok to discharge home BPH resume Flomax and Proscar Dyslipidemia resume statin ?Fibromuscular dysplasia plan to resume aspirin and statin once able to take PO Ok from surgery to resume aspirin Outpatient follow-up with neurology DVT prophylaxis SCD due to recent surgery CODE STATUS full code Disposition Plan to discharge home later Follow up with surgery on Sunday for LEANN removal Admission and Anticipated Discharge Date Admission Date: June 01, 2023 Subjective late entry since pt did not discharge on that day Pt was seen and examined for postop follow up of acute cholecystitis Sitting in chair with no acute distress Pt said that he feels ok He has not had a bowel movement yet Denies any chest pain, palpitation, dizziness and SOB Review of Systems Review of Systems: All systems reviewed & are unremarkable except as noted in Subjective Physical Exam Physical Exam: General- No acute distress Head- atraumatic Eyes- PERRL, EOMI, ENT- decrease hearing function Neck- supple, no JVD Lungs- clear to auscultation Heart- regular rhythm Abdomen- +surgical incision, LEANN drain in place, + surgical dressing Extremities- no calf tenderness Neuro- alert, oriented x 3; PERRL, EOMI; no facial palsy; no dysarthria, +RUE tremor Skin- warm & dry Results & Data Results & Data Vital Signs (Past 12 Hours) Vital Signs Temp Pulse Resp BP Pulse Ox O2 Del Method 06/05/23 09:01 36.2 C L 64 16 149/73 H 96 06/05/23 08:11 36.2 C L 64 16 149/73 H 96 Room Air 06/04/23 22:44 36.7 C 55 L 16 155/82 H 94 Room Air (1) Abdominal pain Abdominal location: epigastric Qualified Code(s): R10.13 - Epigastric pain
== END 2023-06-05 09:27 | disposition home or self-care (01) | DRG 419 ==
LOC: ED 23:34 → SUATTDRO 06-01 08:43 → EDINP 06-01 08:43 → 3E 06-01 17:39